=== PATIENT | male | born 1955 ===

== ENCOUNTER 2018-06-17 18:17 | Inpatient (IN) | payer MEDICARE, MEDICAID ==
[2018-06-17] MEDS ORDERED: Etomidate 20 mg/10ml Inj IV ONE (18:19)
[2018-06-17] MEDS ORDERED: Succinylcholine 200 mg/10 ml Inj IV ONE (18:19)
[2018-06-17] MEDS ORDERED: Propofol 10 mg/ml 1,000 MG/100 ML VIAL ONE ×2 (18:26→22:38)
[2018-06-17] MEDS ORDERED: Propofol 10 mg/ml Inj (20 ML) IV STA ×2 (18:29→18:36)
[2018-06-17] MEDS ORDERED: Albuterol-Ipratrop 3 mg / 0.5 (3 ml) UD INH STA (18:29)
[2018-06-17] MEDS ORDERED: Albuterol-Ipratrop 3 mg / 0.5 (3 ml) UD IH STA (18:29)
[2018-06-17] MEDS ORDERED: Succinylcholine 200 mg/10 ml Inj IV STA (18:30)
[2018-06-17] MEDS ORDERED: Etomidate 20 mg/10ml Inj IV STA (18:30)
[2018-06-17] MEDS ORDERED: Sodium Chloride 0.9% 1,000 ML IV SCH (18:30)
[2018-06-17] MEDS ORDERED: Fentanyl Citrate 2,500 MCG in Dextrose 5% In Water 200 ML IV SCH ×2 (18:45→21:00)
[2018-06-17] MEDS ORDERED: Propofol 10 mg/ml 1,000 MG/100 ML VIAL IV SCH ×2 (18:45→22:45)
[2018-06-17 18:47] LABS: BASO # 0.2 K/uL (0.0-0.2); EOS # 0.8 K/uL (0.0-0.7); EOS % 4.8 % (0.0-4.0); HEMOGLOBIN 16.1 g/dL (12.0-18.0); LYMPH % 36.8 % (20.0-40.0); MEAN CELL VOLUME 85.1 fl (80.0-94.0); MEAN CORPUSCULAR HGB CONC 32.9 g/dL (33.0-37.0); MONO # 1.1 K/uL (0.0-0.8); MONO % 6.8 % (0.0-10.0); NEUT # 8.3 K/uL (1.8-7.0); NEUT % 50.6 % (50.0-75.0); NRBC % 0.2 % (0.0-0.0); RBC 5.77 Mil/uL (4.40-5.90); WHITE BLOOD COUNT 16.4 K/uL (4.8-10.8)
[2018-06-17 18:48] LABS: INR 0.9; PROTHROMBIN TIME 10.6 Seconds (9.8-13.1)
[2018-06-17] MEDS ORDERED: Albuterol-Ipratrop 3 mg / 0.5 (3 ml) UD ONE ×2 (18:49→22:10)
[2018-06-17 18:51] LABS: PARTIAL THROMBOPLASTIN TIME 27.8 Seconds (25.6-37.1)
[2018-06-17 18:57] LABS: ALB/GLOB RATIO 1.5 (1.0-2.1); ALBUMIN 4.7 g/dL (3.5-5.0); ALT/SGPT 16 U/L (21-72); AST/SGOT 21 U/L (17-59); BLOOD UREA NITROGEN 20 mg/dl (9-20); CALCIUM 9.7 mg/dL (8.4-10.2); GFR NON-AFRICAN AMERICAN > 60
[2018-06-17] MEDS ORDERED: Sodium Chloride 0.9% 50 ML IV ONE (19:08)
[2018-06-17] MEDS ORDERED: Iodixanol 320 MG/ML 100 ML BOTTLE IV ONE (19:08)
--- NOTE | 2018-06-17 19:17 | ED PDOC ---
HPI: SOB/CHF/COPD Time Seen by Provider: 06/17/18 18:17 Chief Complaint (Nursing): Respiratory Distress Chief Complaint (Provider): Respiratory Distress History Per: EMS History/Exam Limitations: clinical condition Onset/Duration Of Symptoms: Sudden Onset Current Symptoms Are (Timing): Still Present Additional Complaint(s): Unknown male arrives to emergency department via ambulance for evaluation of respiratory distress. As per EMS, patient's called 911 after witnessing patient with difficulty breathing while eating soup prior to arrival. and home health aid are present but were unable to provide medical history or name. Initially, the handed over a bag containing paperwork without proper ID or information included. Upon arrival, patient observed with retraction and desaturation in 80s range. O2 desaturating rapidly on monitor - requires immedi ate intubation. Dr. Cespedes present for assistance. PCP: none provided Past Medical History Reviewed: Unable To Obtain Vital Signs: Last Vital Signs Temp 98.6 F 06/17/18 18:44 Pulse 81 06/17/18 19:05 Resp 18 06/17/18 19:05 BP 110/72 06/17/18 19:05 Pulse Ox 99 06/17/18 19:05 - Family History Family History: States: Unknown Family Hx - Home Medications Home Medications: Ambulatory Orders Medication Instructions Recorded ARIPiprazole [Abilify] 15 mg PO DAILY 06/17/18 Alprazolam [Xanax] 0.25 mg PO DAILY 06/17/18 Cholecalciferol (Vitamin D3) 2,000 unit PO DAILY 06/17/18 [Vitamin D3] Citalopram Hydrobromide 40 mg PO DAILY 06/17/18 [Citalopram HBr] Fenofibrate [Triglide] 160 mg PO DAILY 06/17/18 Ibuprofen [Motrin] 400 mg PO TID PRN 06/17/18 Insulin Detemir [Levemir] 30 unit SQ DAILY 06/17/18 Insulin Lispro [humALOG] 4 unit PRN PRN 06/17/18 Metoprolol Tartrate [Lopressor] 25 mg PO BID 06/17/18 Oxcarbazepine 300 mg PO BID 06/17/18 metFORMIN [glucOPHAGE] 500 mg PO BID 06/17/18 - Allergies Allergies/Adverse Reactions: Allergies Allergy/AdvReac Type Severity Reaction Status Date / Time Unobtainable Allergy Verified 06/17/18 18:19 Review of Systems Review Of Systems: ROS cannot be obtained secondary to pt's inabilty to answer questions. Physical Exam - Reviewed Nursing Documentation Reviewed: Yes Vital Signs Reviewed: Yes - Physical Exam ENT: Positive for: Normal ENT Inspection (midline trachea) Cardiovascular/Chest: Positive for: Tachycardia (regular rate) Respiratory: Positive for: Crackles (bilateral), Stridor (bilateral), Respiratory Distress (tachypneic with O2 desaturation) Gastrointestinal/Abdominal: Positive for: Normal Exam, Soft. Negative for: Tenderness Extremity: Positive for: Other (stiffness to UE/LE). Negative for: Deformity (or visible trauma) Neurological/Psych: Negative for: Awake, Alert, Normal Tone - Laboratory Results Result Diagrams: 06/17/18 18:30 06/17/18 18:30 Lab Results: PT 10.6 Seconds (9.8-13.1) 06/17/18 18:30 INR 0.9 06/17/18 18:30 APTT 27.8 Seconds (25.6-37.1) 06/17/18 18:30 Troponin I < 0.0120 ng/mL (0.00-0.120) 06/17/18 18:30 NT-Pro-B Natriuret Pep 51.0 pg/ml (0-900) 06/17/18 18:30 Total Bilirubin 0.4 mg/dl (0.2-1.3) 06/17/18 18:30 AST 21 U/L (17-59) 06/17/18 18:30 ALT 16 U/L (21-72) L 06/17/18 18:30 Alkaline Phosphatase 74 U/L (38-126) 06/17/18 18:30 Total Protein 7.9 G/DL (6.3-8.2) 06/17/18 18:30 Albumin 4.7 g/dL (3.5-5.0) 06/17/18 18:30 Globulin 3.1 gm/dL (2.2-3.9) 06/17/18 18:30 Albumin/Globulin Ratio 1.5 (1.0-2.1) 06/17/18 18:30 - ECG O2 Sat by Pulse Oximetry: 99 (RA) Pulse Ox Interpretation: Normal - Critical Care Total Time (In Min): 60 Documented Critical Care: Time excludes all time spent performint seperately billable procedures Medical Decision Making Medical Decision Making: Time: 1816 Initial Plan: work-up for respiratory distress with Dr. Cespedes at bedside. EMS sending a public relations representative to pickup location to obtain additional identifying documents. CT ordered to rule out obstruction vs. aspiration. Critical care consult initiated. Patient will be admitted to ICU. * CT chest * Fentanyl IV * Labs * EKG * CXR * Amidate 20mg IV * Diprivan IV * Duoneb 3ml INH * Quelicin 100mg IV * Solu-medrol 125mg IVP * Blood/urine culture Time: 1899 --Case discussed with Dr. Monk, hospitalist covering for overnight critical care. 1999 RNs initially able to find a patient matching the and name given by EMS based on location hop picker. Later able to get pt from patient as he is now alert and calm while mechanically ventilated. Pt's sister also contacted hospital to confirm as 1955. Pt has history of stroke, DM, and HTN Meds: Levemer 30 U am HUmalog sliding scale Ibuprofen 400 mg TID PRN pain Metformin 500 mg BID Oxcarbazepine 300mg BID Citalopram 40 mg daily Alprazolam 0.25 mg daily Vitamin d3 2000u daily Fenofibrate 160mg daily Metoprolol 25 mg BID Ariprazole 15 mg daily Health Care proxy is sister, Yee Pascual, Dr. Monk is currently bedside and agrees to keeping pt intubated until respiratory distress can further be worked up. Time: 2025 --CT head FINDINGS: BRAIN No acute intraparenchymal hemorrhage. No mass lesion. No CT evidence for acute territorial infarct. No midline shift or extra-axial collections. VENTRICLES: No hydrocephalus. ORBITS: The orbits are unremarkable. SINUSES AND MASTOIDS: Inflammatory changes are present within the ethmoid and frontal sinuses. BONES: No fracture. SOFT TISSUES: Unremarkable. IMPRESSION: No acute intracranial abnormality. Inflammatory changes within the ethmoid and frontal sinuses. Clinical correlation advised. Time: 2031 --CT chest FINDINGS: LUNGS: There is infiltrated both lung bases posteriorly and mild pleural reaction.. PLEURAL SPACES: Mild pleural thickening at the lung bases. HEART: No cardiomegaly. No significant pericardial effusion. Fluid filled moderately distended upper and midesophagus. Endotracheal tube appears high in position with its and just inferior to the vocal cords. LYMPH NODES: No lymphadenopathy is evident. BONES: No focal osseous abnormality or acute fracture. UPPER ABDOMEN: The upper abdominal solid organs are unremarkable. IMPRESSION: Infiltrate both lung bases. Some pleural reaction noted. Fluid- filled distended esophagus. Endotracheal tube appears high in position. Close clinical correlation advised. Scribe Attestation: Documented by Geni Samano, acting as a scribe for Dior Chawla MD. Provider Scribe Attestation: All medical record entries made by the Scribe were at my direction and personally dictated by me. I have reviewed the chart and agree that the record accurately reflects my personal performance of the history, physical exam, me dical decision making, and the department course for this patient. I have also personally directed, reviewed, and agree with the discharge instructions and disposition. Disposition - Clinical Impression Clinical Impression: Respiratory distress - Disposition Disposition Time: 19:53 Condition: CRITICAL
[2018-06-17 19:22] LABS: SQUAMOUS EPITHIAL < 1 /hpf (0-5); URINE BILIRUBIN NEGATIVE (NEGATIVE); URINE BLOOD NEGATIVE (NEGATIVE); URINE CLARITY CLEAR (Clear); URINE COLOR STRAW (YELLOW); URINE GLUCOSE (UA) >=500 mg/dL (NEGATIVE); URINE LEUKOCYTE ESTERASE NEG Leu/uL (Negative); URINE PROTEIN 30 mg/dL (NEGATIVE); URINE UROBILINOGEN 0.2-1.0 mg/dL (0.2-1.0)
[2018-06-17 20:13] LABS: ABG ALLEN TEST YES; ARTERIAL BLOOD GAS HCO3 22.7 mmol/L (21-28); ARTERIAL BLOOD GAS PCO2 47 mm/Hg (35-45); ARTERIAL BLOOD GAS PH 7.31 (7.35-7.45); ARTERIAL BLOOD GAS PO2 135 mm/Hg (80-100); ARTERIAL BLOOD GAS TCO2 25.1 mmol/L (22-28)
[2018-06-17] MEDS ORDERED: Sodium Chloride 0.45% 1,000 ML IV SCH (21:30)
--- NOTE | 2018-06-17 21:30 | CP.PCM.HP ---
History of Present Illness - History of Present Illness History of Present Illness: PMD: None given Chief complaint: respiratory distress The Patient was seen and examined in the ED and I spoke to the sister on the taylor ne HPI: the history was obtained from the patient's sister via telephone, the laboratory, radiological and medical records as the patient is intubated and sedated. He is a 63 years old male with hx of DM insulin requiring, HTN and CVA with right side weakness, aphasia and difficulty in swallowing. He was brought to the E after an episode of acute unset of respiratory distress and choking while eating. The EMS found him desaturating to the 80s and he was placed on oxygen. In the ED he was intubated. 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 Past Patient History - Infectious Disease Hx of Infectious Diseases: None - Past Social History Smoking Status: Former Smoker Chewing Tobacco Use: No Cigar Use: No Alcohol: None Drugs: Denies Home Situation {Lives}: Alone - CARDIAC Hx Hypertension: Yes - PULMONARY Hx Respiratory Disorders: No - NEUROLOGICAL Hx Neurological Disorder: Yes HX Cerebrovascular Accident: Yes (With right side weakness, motor aphasia and dysphagia?) - HEENT Hx HEENT Problems: No - RENAL Hx Chronic Kidney Disease: No - ENDOCRINE/METABOLIC Hx Diabetes Mellitus Type 2: Yes - HEMATOLOGICAL/ONCOLOGICAL Hx Blood Disorders: No - INTEGUMENTARY Hx Dermatological Problems: No - MUSCULOSKELETAL/RHEUMATOLOGICAL Hx Musculoskeletal Disorders: No - GASTROINTESTINAL Hx Gastrointestinal Disorders: No - GENITOURINARY/GYNECOLOGICAL Hx Genitourinary Disorders: No - PSYCHIATRIC Hx Psychophysiologic Disorder: No Hx Substance Use: No - SURGICAL HISTORY Hx Surgeries: No - ANESTHESIA Hx Anesthesia: No Meds Allergies/Adverse Reactions: Allergies Allergy/AdvReac Type Severity Reaction Status Date / Time Unobtainable Allergy Verified 06/17/18 18:19 Physical Exam - Constitutional Additional comments: Intubated - Head Exam Head Exam: ATRAUMATIC, NORMAL INSPECTION, NORMOCEPHALIC - Eye Exam Eye Exam: EOMI, Normal appearance Pupil Exam: NORMAL ACCOMODATION - ENT Exam ENT Exam: Normal Exam, Normal External Ear Exam - Neck Exam Neck exam: Positive for: Full Rom, Normal Inspection - Respiratory Exam Respiratory Exam: Clear to Auscultation Bilateral. absent: Rales, Rhonchi, Wheezes - Cardiovascular Exam Cardiovascular Exam: REGULAR RHYTHM, RRR, +S1, +S2 - GI/Abdominal Exam GI & Abdominal Exam: Normal Bowel Sounds, Soft. absent: Mass, Organomegaly - Rectal Exam Rectal Exam: Deferred - Extremities Exam Extremities exam: Positive for: normal inspection. Negative for: pedal edema - Back Exam Back exam: NORMAL INSPECTION - Neurological Exam Additional comments: Intubated and sedated, No facial droop seen, right upper extremity is hypertonic - Psychiatric Exam Additional comments: Intubated - Skin Skin Exam: Dry, Intact, Normal Color, Warm Results - Vital Signs Recent Vital Signs: Last Vital Signs Temp 98.6 F 06/17/18 18:44 Pulse 76 06/17/18 21:00 Resp 17 06/17/18 21:00 BP 120/63 06/17/18 21:00 Pulse Ox 98 06/17/18 21:00 - Labs Result Diagrams: 06/18/18 05:31 06/18/18 05:31 Labs: Laboratory Results - last 24 hr 06/17/18 06/17/18 06/17/18 18:30 18:30 18:30 WBC 16.4 H RBC 5.77 Hgb 16.1 Hct 49.1 MCV 85.1 MCH 28.0 MCHC 32.9 L RDW 15.0 H Plt Count 313 MPV 8.0 Neut % (Auto) 50.6 Lymph % (Auto) 36.8 [place] % (Auto) 6.8 Eos % (Auto) 4.8 H Baso % (Auto) 1.0 Neut # (Auto) 8.3 H Lymph # (Auto) 6.0 H [place] # (Auto) 1.1 H Eos # (Auto) 0.8 H Baso # (Auto) 0.2 PT 10.6 INR 0.9 APTT 27.8 pCO2 pO2 HCO3 ABG pH ABG Total CO2 ABG O2 Saturation ABG Base Excess Vasu Test ABG Potassium A-a O2 Difference Glucose Lactate Vent Mode Mechanical Rate FiO2 Tidal Volume PEEP Blood Gas Comments Crit Value Called To Crit Value Called By Crit Value Read Back Blood Gas Notified Time Sodium 142 Potassium 4.7 Chloride 107 Carbon Dioxide 20 L Anion Gap 20 BUN 20 Creatinine 1.0 Est GFR ( Amer) > 60 Est GFR (Non-Af Amer) > 60 Random Glucose 357 H Calcium 9.7 Phosphorus 4.9 H Magnesium 2.1 Total Bilirubin 0.4 AST 21 ALT 16 L Alkaline Phosphatase 74 Troponin I < 0.0120 NT-Pro-B Natriuret Pep 51.0 Total Protein 7.9 Albumin 4.7 Globulin 3.1 Albumin/Globulin Ratio 1.5 Arterial Blood Potassium Urine Color Urine Clarity Urine pH Ur Specific [place] Urine Protein Urine Glucose (UA) Urine Ketones Urine Blood Urine Nitrate Urine Bilirubin Urine Urobilinogen Ur Leukocyte Esterase Urine RBC (Auto) Urine Microscopic WBC Ur Squamous Epith Cells 06/17/18 06/17/18 19:14 20:06 WBC RBC Hgb Hct MCV MCH MCHC RDW Plt Count MPV Neut % (Auto) Lymph % (Auto) [place] % (Auto) Eos % (Auto) Baso % (Auto) Neut # (Auto) Lymph # (Auto) [place] # (Auto) Eos # (Auto) Baso # (Auto) PT INR APTT pCO2 47 H pO2 135 H HCO3 22.7 ABG pH 7.31 L ABG Total CO2 25.1 ABG O2 Saturation 101.0 H ABG Base Excess -2.9 L Vasu Test Yes ABG Potassium 4.6 A-a O2 Difference 234.0 Glucose 396 H Lactate 2.3 H Vent Mode Prvc/ac Mechanical Rate 18 FiO2 60.0 Tidal Volume 500 PEEP 5 Blood Gas Comments Lac=2.3 Crit Value Called To deshaun Ruiz Crit Value Called By 22 Crit Value Read Back Y Blood Gas Notified Time 2011 Sodium 139.0 Potassium Chloride 108.0 H Carbon Dioxide Anion Gap BUN Creatinine Est GFR ( Amer) Est GFR (Non-Af Amer) Random Glucose Calcium Phosphorus Magnesium Total Bilirubin AST ALT Alkaline Phosphatase Troponin I NT-Pro-B Natriuret Pep Total Protein Albumin Globulin Albumin/Globulin Ratio Arterial Blood Potassium 4.6 Urine Color Straw Urine Clarity Clear Urine pH 6.0 Ur Specific [place] 1.024 Urine Protein 30 Urine Glucose (UA) >=500 Urine Ketones Negative Urine Blood Negative Urine Nitrate Negative Urine Bilirubin Negative Urine Urobilinogen 0.2-1.0 Ur Leukocyte Esterase Neg Urine RBC (Auto) < 1 Urine Microscopic WBC < 1 Ur Squamous Epith Cells < 1 - Imaging and Cardiology Chest x-ray Status: Image reviewed by me Additional comment: Increased bronchovascular markings CT scan - chest Status: Report reviewed by me Additional comment: Time: 2031 --CT chest FINDINGS: LUNGS: There is infiltrated both lung bases posteriorly and mild pleural reaction.. PLEURAL SPACES: Mild pleural thickening at the lung bases. HEART: No cardiomegaly. No significant pericardial effusion. Fluid filled moderately distended upper and midesophagus. Endotracheal tube appears high in position with its and just inferior to the vocal cords. LYMPH NODES: No lymphadenopathy is evident. BONES: No focal osseous abnormality or acute fracture. UPPER ABDOMEN: The upper abdominal solid organs are unremarkable. IMPRESSION: Infiltrate both lung bases. Some pleural reaction noted. Fluid- filled distended esophagus. Endotracheal tube appears high in position. Close clinical correlation advised. CT scan - head Status: Report reviewed by me Additional comment: Time: 2025 --CT head FINDINGS: BRAIN No acute intraparenchymal hemorrhage. No mass lesion. No CT evidence for acute territorial infarct. No midline shift or extra-axial collections. VENTRICLES: No hydrocephalus. ORBITS: The orbits are unremarkable. SINUSES AND MASTOIDS: Inflammatory changes are present within the ethmoid and frontal sinuses. BONES: No fracture. SOFT TISSUES: Unremarkable. IMPRESSION: No acute intracranial abnormality. Inflammatory changes within the ethmoid and frontal sinuses. Clinical correlation advised. Assessment & Plan - Assessment and Plan (Free Text) Assessment: #. Acute Respiratory distress #. Hypoxemia #. Dehydration #. DM II with Hyperglycemia #. Hx of CVA with right sided weakness Plan: 63 years old male with hx of DM insulin requiring, HTN and CVA with right side weakness, aphasia and difficulty in swallowing. He was brought to the E after an episode of acute unset of respiratory distress and choking while eating. The EMS found him desaturating to the 80s and he was placed on oxygen. In the ED he was intubated. #. Acute Respiratory distress. - Patient intubated in the ER and placed on the Mechanical ventilator - consult pulmonary Dr Pickens - Follow ABG #. Hypoxemia - Add Oxygen and follow ABG - Albuterol #. Dehydration - IV Fluid - follow renal labs #. DM II with Hyperglycemia - Continue levemir and Novolog sliding scale #. Hx of CVA with right sided weakness #. DVT prophylaxis #. Stroke status: Unknown full code - Date & Time Date: 06/17/18 Time: 21:30
[2018-06-17] MEDS: Propofol 10 mg/ml 1,000 MG/100 ML VIAL IV SCH (23:18)
[2018-06-17] MEDS: Insulin Detemir 100 Units/ml Inj SC SCH (23:38)
[2018-06-18 01:03] VITALS: BMI 29.7
[2018-06-18] MEDS: Insulin Lispro (humaLOG) 100 Units/ml Inj SC SCH ×4 (02:57→21:29)
[2018-06-18 04:39] LABS: ABG ALLEN TEST YES; ARTERIAL BLOOD GAS HCO3 24.1 mmol/L (21-28); ARTERIAL BLOOD GAS HEMOGLOBIN 14.6 g/dL (11.7-17.4); ARTERIAL BLOOD GAS O2 CAPACITY 20.3 mL/dL (16-24); ARTERIAL BLOOD GAS O2 CONTENT 20.4 ML/dL (15-23); ARTERIAL BLOOD GAS O2 SAT 100.4 % (95-98); ARTERIAL BLOOD GAS PCO2 45 mm/Hg (35-45); ARTERIAL BLOOD GAS PH 7.35 (7.35-7.45); ARTERIAL BLOOD GAS PO2 216 mm/Hg (80-100); ARTERIAL BLOOD GAS TCO2 26.2 mmol/L (22-28)
[2018-06-18] MEDS: Propofol 10 mg/ml 1,000 MG/100 ML VIAL IV SCH (05:17)
[2018-06-18 05:57] LABS: BLOOD UREA NITROGEN 20 mg/dl (9-20); CALCIUM 9.3 mg/dL (8.4-10.2); GFR NON-AFRICAN AMERICAN > 60
[2018-06-18 06:43] LABS: BASO % 0.2 % (0.0-2.0); HEMOGLOBIN 14.3 g/dL (12.0-18.0); MONO # 0.6 K/uL (0.0-0.8); MONO % 5.1 % (0.0-10.0); NEUT # 10.6 K/uL (1.8-7.0); NRBC % 0.2 % (0.0-0.0); RBC 5.12 Mil/uL (4.40-5.90); WHITE BLOOD COUNT 12.2 K/uL (4.8-10.8)
[2018-06-18 06:45] LABS: MEAN CELL VOLUME 83.8 fl (80.0-94.0); MEAN CORPUSCULAR HEMOGLOBIN 27.9 pg (27.0-31.0); MEAN CORPUSCULAR HGB CONC 33.3 g/dL (33.0-37.0); MEAN PLATELET VOLUME 8.3 fl (7.2-11.7); NEUT % 86.7 % (50.0-75.0); PLATELET COUNT 240 K/uL (130-400); RED CELL DISTRIBUTION WIDTH 14.9 % (11.5-14.5)
--- NOTE | 2018-06-18 07:09 | CP.PCM.PN ---
<Yudelka Luna - Last Filed: 06/18/18 10:59> Subjective - Date & Time of Evaluation Date of Evaluation: 06/18/18 Time of Evaluation: 07:09 - Subjective Subjective: Patient seen and examined today in ICU Intubated and sedated, on MV, pt awake and alert, following commands No acute overnight events VSS, afebrile Considering extubation Objective - Vital Signs/Intake and Output Vital Signs (last 24 hours): Temp Pulse Resp BP Pulse Ox 98.8 F 66 18 103/62 97 06/18/18 06:00 06/18/18 06:00 06/18/18 06:00 06/18/18 06:00 06/18/18 06:00 Intake and Output: 06/18/18 06/18/18 06:59 18:59 Intake Total 1029.9 Output Total 1700 Balance -670.1 - Medications Medications: Current Medications Albuterol Sulfate (Albuterol 0.083% Inhal Sandi (2.5 Mg/3 Ml) Ud) 2.5 mg INH RQ4 KEARA Sodium Chloride (Sodium Chloride 0.9%) 1,000 mls @ 150 mls/hr IV .Q6H40M KEARA Last Admin: 06/17/18 18:30 Dose: 150 mls/hr Propofol (Diprivan) 1,000 mg in 100 mls @ 4.899 mls/hr IV .[id number] KEARA; Protocol Stop: 06/18/18 18:37 Last Titration: 06/17/18 19:45 Dose: 24.49 mcg/kg/min, 11.997 mls/hr Fentanyl Citrate 2,500 mcg/ (Dextrose) 250 mls @ 2.5 mls/hr IV .Q24H KEARA; Protocol Last Titration: 06/17/18 20:27 Dose: 300 mcg/hr, 30 mls/hr Fentanyl Citrate 2,500 mcg/ (Dextrose) 250 mls @ 3 mls/hr IV .Q24H KEARA; Protocol Last Titration: 06/18/18 00:15 Dose: 49 mcg/hr, 4.9 mls/hr Sodium Chloride (Sodium Chloride 0.45%) 1,000 mls @ 125 mls/hr IV .Q8H KEARA Stop: 06/18/18 21:25 Last Admin: 06/18/18 02:49 Dose: 125 mls/hr Propofol (Diprivan) 1,000 mg in 100 mls @ 17.494 mls/hr IV .Q5H43M [facility]; Protocol Stop: 06/18/18 22:34 Last Admin: 06/18/18 05:17 Dose: 35.71 mcg/kg/min, 17.494 mls/hr Insulin Detemir (Levemir) 15 units SC HS [facility] Last Admin: 06/17/18 23:38 Dose: 15 unit Insulin Human Lispro (Humalog) 0 units SC Q6H [facility]; Protocol Last Admin: 06/18/18 02:57 Dose: 3 units - Labs Labs: 06/18/18 05:31 06/18/18 05:31 PT 10.6 Seconds (9.8-13.1) 06/17/18 18:30 INR 0.9 06/17/18 18:30 APTT 27.8 Seconds (25.6-37.1) 06/17/18 18:30 - Constitutional Appears: No Acute Distress, Other (intubated on MV) - Head Exam Head Exam: NORMAL INSPECTION - Eye Exam Eye Exam: EOMI, PERRL - Respiratory Exam Respiratory Exam: Clear to Ausculation Bilateral - Cardiovascular Exam Cardiovascular Exam: REGULAR RHYTHM, +S1, +S2. absent: Tachycardia - GI/Abdominal Exam GI & Abdominal Exam: Soft, Normal Bowel Sounds. absent: Distended, Tenderness - Extremities Exam Extremities Exam: absent: Pedal Edema - Neurological Exam Neurological Exam: Alert, Awake Additional comments: Able to follow verbal commands - Skin Skin Exam: Dry, Warm Assessment and Plan - Assessment and Plan (Free Text) Assessment: 63 years old male with hx of DM insulin requiring, HTN and CVA with right side weakness, aphasia and difficulty in swallowing. He was brought to the E after an episode of acute unset of respiratory distress and choking while eating. The EMS found him desaturating to the 80s and he was placed on oxygen. In the ED he was intubated. Acute Respiratory distress. - r/o aspiration - CXR negative for acute lung changes - Patient intubated on MV 18/500/5/40 - consult pulmonary Dr Pickens - troponin neg x3 - P BNP wnl Hypoxemia - Add Oxygen and follow ABG - Albuterol Dehydration - IV Fluid - renal labs wnl DM II with Hyperglycemia - Continue levemir and Novolog sliding scale Hx of CVA with right sided weakness DVT prophylaxis Stroke status: Unknown full code Case seen and examined with Dr Combs. Marcelina PGY 2 <Arina Combs - Last Filed: 06/18/18 17:18> Objective - Vital Signs/Intake and Output Vital Signs (last 24 hours): Temp Pulse Resp BP Pulse Ox 100.0 F H 81 16 117/61 97 06/18/18 16:00 06/18/18 16:00 06/18/18 16:00 06/18/18 16:00 06/18/18 16:00 Intake and Output: 06/18/18 06/18/18 06:59 18:59 Intake Total 1029.9 850 Output Total 1700 Balance -670.1 850 - Medications Medications: Current Medications Albuterol Sulfate (Albuterol 0.083% Inhal Sandi (2.5 Mg/3 Ml) Ud) 2.5 mg INH RQ6 KEARA Last Admin: 06/18/18 15:27 Dose: 2.5 mg Enoxaparin Sodium (Lovenox) 40 mg SC DAILY KEARA; Protocol Propofol (Diprivan) 1,000 mg in 100 mls @ 4.899 mls/hr IV .[id number] KEARA; Protocol Stop: 06/18/18 18:37 Last Titration: 06/17/18 19:45 Dose: 24.49 mcg/kg/min, 11.997 mls/hr Fentanyl Citrate 2,500 mcg/ (Dextrose) 250 mls @ 2.5 mls/hr IV .Q24H [facility]ARA; Protocol Last Titration: 06/17/18 20:27 Dose: 300 mcg/hr, 30 mls/hr Fentanyl Citrate 2,500 mcg/ (Dextrose) 250 mls @ 3 mls/hr IV .Q24H [facility]ARA; Protocol Last Titration: 06/18/18 00:15 Dose: 49 mcg/hr, 4.9 mls/hr Propofol (Diprivan) 1,000 mg in 100 mls @ 17.494 mls/hr IV .Q5H43M [facility]; Protocol Stop: 06/18/18 22:34 Last Admin: 06/18/18 05:17 Dose: 35.71 mcg/kg/min, 17.494 mls/hr Piperacillin Sod/Tazobactam (Sod 3.375 gm/ Sodium Chloride) 100 mls @ 100 mls/hr IVPB Q6 [facility]; Protocol Last Admin: 06/18/18 09:36 Dose: 100 mls/hr Sodium Chloride (Sodium Chloride 0.9%) 1,000 mls @ 75 mls/hr IV .[id number] KEARA Last Admin: 06/18/18 09:36 Dose: 75 mls/hr Azithromycin 500 mg/ Sodium (Chloride) 250 mls @ 250 mls/hr IVPB DAILY KEARA; Pr otocol Last Admin: 06/18/18 09:34 Dose: 250 mls/hr Insulin Detemir (Levemir) 15 units SC HS [facility] Last Admin: 06/17/18 23:38 Dose: 15 unit Insulin Human Lispro (Humalog) 0 units SC Q6H [facility]; Protocol Last Admin: 06/18/18 09:51 Dose: 4 units Methylprednisolone (Solu-Medrol) 40 mg IVP Q12 [facility]ARA Last Admin: 06/18/18 09:38 Dose: 40 mg - Labs Labs: 06/18/18 05:31 06/18/18 05:31 PT 10.6 Seconds (9.8-13.1) 06/17/18 18:30 INR 0.9 06/17/18 18:30 APTT 27.8 Seconds (25.6-37.1) 06/17/18 18:30 Attending/Attestation - Attestation I have personally seen and examined this patient.: Yes I have fully participated in the care of the patient.: Yes I have reviewed all pertinent clinical information, including history, physical exam and plan: Yes Notes (Text): Acute Hypoxic and Hypercapneic Respiratory Failure COPD exacerbation DM type II on Insulin Pt remains intubated on Vent alert, follows simple commands cont IV Solumedrol and Duonebs cont IV AZithro and Zosyn
[2018-06-18] MEDS ORDERED: Influenza Vaccine 60 MCG/0.5 ML SYR (3 yr & up) IM ONE (08:09)
[2018-06-18] MEDS ORDERED: Pneumococcal 23-Valent Vaccine IM ONE (08:10)
[2018-06-18] MEDS: Albuterol 0.083% Inhal Sol (2.5 mg/3 mL) UD INH SCH ×4 (08:20→19:15)
--- NOTE | 2018-06-18 08:31 | CT ---
Date of service: 06/17/2018 PROCEDURE: CT HEAD WITHOUT CONTRAST. HISTORY: headache COMPARISON: None available. TECHNIQUE: Axial computed tomography images were obtained through the head/brain without intravenous contrast. Radiation dose: Total exam DLP = 1191.89 mGy-cm. This CT exam was performed using one or more of the following dose reduction techniques: Automated exposure control, adjustment of the mA and/or kV according to patient size, and/or use of iterative reconstruction technique. FINDINGS: HEMORRHAGE: No intracranial hemorrhage. BRAIN: No mass effect or edema. No significant atrophy. Mild periventricular white matter lucency consistent with chronic microvascular ischemic change. Bilateral small old basal ganglia lacunar infarcts. No evidence of acute infarct. VENTRICLES: Unremarkable. No hydrocephalus. CALVARIUM: Unremarkable. PARANASAL SINUSES: Chronic pansinusitis, mild. MASTOID AIR CELLS: Unremarkable as visualized. No inflammatory changes. OTHER FINDINGS: None. IMPRESSION: No intracranial mass, hemorrhage or evidence of acute infarct. Mild chronic pansinusitis. The preliminary findings for this examination were reported by [facility] at 8:26 p.m. on 06/17/2018. There is concurrence of this report with the preliminary findings.
[2018-06-18] MEDS ORDERED: methylPREDNISolone 40 MG in Sodium Chloride 0.9% 50 ML IVPB SCH (09:00)
--- NOTE | 2018-06-18 09:15 | CARD ---
APPROVED REPORT Date of service: 06/17/2018 EKG Measurement Heart [id number] <Conclusion> Normal sinus rhythm Possible Left atrial enlargement Left axis deviation Left ventricular hypertrophy with QRS widening and repolarization abnormality Abnormal ECG
[2018-06-18] MEDS: Azithromycin 500 MG in Sodium Chloride 0.9% 250 ML IVPB SCH (09:34)
[2018-06-18] MEDS: Piperacillin/Tazobact 3.375 GM in Sodium Chloride 0.9% 100 ML IVPB SCH ×3 (09:36→21:31)
[2018-06-18] MEDS: Sodium Chloride 0.9% 1,000 ML IV SCH (09:36)
[2018-06-18] MEDS: MethylPREDNISolone 40 mg Vial IVP SCH ×2 (09:38→20:08)
--- NOTE | 2018-06-18 09:47 | RAD ---
Date of service: 06/18/2018 HISTORY: reevaluate ETT/ lungs COMPARISON: 06/17/2018 TECHNIQUE: 1 view obtained. FINDINGS: LUNGS: No active pulmonary disease. PLEURA: No significant pleural effusion identified, no pneumothorax apparent. CARDIOVASCULAR: No aortic atherosclerotic calcification present. Normal cardiac size. No congestive change. ET tube unchanged in position. OSSEOUS STRUCTURES: No significant abnormalities. VISUALIZED UPPER ABDOMEN: Normal. OTHER FINDINGS: None. IMPRESSION: No active disease.
--- NOTE | 2018-06-18 09:50 | RAD ---
Date of service: 06/17/2018 HISTORY: follow up acute respiratory distress COMPARISON: 06/17/2018 TECHNIQUE: 1 view obtained. FINDINGS: LUNGS: No active pulmonary disease. PLEURA: No significant pleural effusion identified, no pneumothorax apparent. CARDIOVASCULAR: No aortic atherosclerotic calcification present. Normal cardiac size. ET tube unchanged. OSSEOUS STRUCTURES: No significant abnormalities. VISUALIZED UPPER ABDOMEN: Normal. OTHER FINDINGS: None. IMPRESSION: No active disease.
--- NOTE | 2018-06-18 11:02 | CT ---
Date of service: 06/17/2018 PROCEDURE: CT Chest with contrast HISTORY: resp distress, possibly aspirataion COMPARISON: None available. TECHNIQUE: Contiguous axial images were obtained through the chest with intravenous contrast enhancement. Sagittal and coronal reconstructions were performed. IV contrast: 100 mL of Visipaque 320 intravenously. Radiation dose: Total exam DLP = 569.01 mGy-cm. This CT exam was performed using one or more of the following dose reduction techniques: Automated exposure control, adjustment of the mA and/or kV according to patient size, and/or use of iterative reconstruction technique. FINDINGS: LUNGS: There are foci of airspace consolidation and heterogeneous infiltrate at the posterior dependent portion of both lower lobes may represent aspiration. There is a linear/curvilinear shaped opacity at the inferior aspect of the right lung upper lobe along the right fissure that also may represent aspiration or scar tissue from prior infection or inflammatory process. The ET tube is seen in place extending to the upper trachea at the level of the clavicles. MEDIASTINUM: The thoracic aorta is ectatic and tortuous. The heart is upper normal limit in size. Main pulmonary artery unremarkable. No vascular congestion. No lymphadenopathy. Foci of atherosclerotic calcification noted at the aortic arch. Moderately dilated esophagus contains air-fluid level and fluid density in the mid and distal portion. PLEURA: No pleural fluid. No pneumothorax. BONES: No fracture. No destructive lesion. Findings suggestive of old fracture in upper sternum. UPPER ABDOMEN: Grossly unremarkable. OTHER FINDINGS: None. IMPRESSION: Foci of airspace consolidation at the posterior dependent portion of the bilateral lower lobes and right upper lobe likely represent aspiration. Differential consideration includes less likely multifocal pneumonia. Moderately dilated esophagus contains fluid and air-fluid level. The differential consideration includes gastroesophageal reflux versus stenosis or neoplasm in the distal esophagus. Further evaluation is suggested. Preliminary report was submitted by [facility] Radiology contains concordant findings.
[2018-06-18 11:14] LABS: BANDS 2 % (0-2); LYMPHOCYTE 7 % (20-50); MONOCYTE 6 % (0-10); MYELOCYTE 1 % (0-0); NEUTROPHIL 83 % (42-75); REACTIVE LYMPHOCYTES 1 % (0-0); TOTAL CELLS COUNTED 100
[2018-06-18 11:15] LABS: PLATELET ESTIMATE NORMAL (NORMAL)
[2018-06-18 11:16] LABS: ANISOCYTOSIS SLIGHT; GIANT PLATELETS PRESENT
--- NOTE | 2018-06-18 14:23 | RAD ---
Date of service: 06/17/2018 HISTORY: Sepsis Patient COMPARISON: No prior. TECHNIQUE: 1 view obtained. FINDINGS: LUNGS: Part of left lung is not included in this study. No evidence of focal infiltrate or consolidation. The ET tube is seen at appropriate position PLEURA: No significant pleural effusion identified, no pneumothorax apparent. CARDIOVASCULAR: No aortic atherosclerotic calcification present. Normal cardiac size. No pulmonary vascular congestion. OSSEOUS STRUCTURES: No significant abnormalities. VISUALIZED UPPER ABDOMEN: Normal. OTHER FINDINGS: None. IMPRESSION: Baseline suboptimal study. No evidence of acute pulmonary disease. ET tube seen in place.
--- NOTE | 2018-06-18 14:58 | CP.CCUPN ---
CCU Subjective - Physician Review Events Since Last Encounter (Free Text): 06/18/18 14:49 alert and following commands. CCU Objective - Vital Signs / Intake & Output Vital Signs (Last 4 hours): Vital Signs Temp Pulse Resp BP Pulse Ox 06/18/18 14:00 70 12 129/65 98 06/18/18 13:00 68 11 L 123/63 98 06/18/18 12:00 99.3 F 68 9 L 118/62 98 06/18/18 11:00 65 18 123/65 98 Intake and Output (Last 8hrs): Intake & Output 06/17/18 06/18/18 06/18/18 22:59 06:59 14:59 Intake Total 429.9 800 850 Output Total 1700 Balance 429.9 -900 850 Weight 180 lb 196 lb Intake: IV 429.9 800 500 Intravenous #1 200 Intake, Piggyback 350 Output: Urine 1700 Urethral ([place]) 1700 - Physical Exam Head: Positive for: Atraumatic, Normocephalic Pupils: Positive for: PERRL Extroacular Muscles: Positive for: EOMI Conjunctiva: Positive for: Normal Ears: Positive for: Normal Mouth: Positive for: Moist Mucous Membranes Nose (External): Positive for: Atraumatic Respiratory/Chest: Positive for: Clear to Auscultation Cardiovascular: Positive for: Regular Rate and Rhythm Abdomen: Positive for: Normal Bowel Sounds. Negative for: Tenderness, Distention Upper Extremity: Positive for: Normal Inspection Lower Extremity: Positive for: Normal Inspection Psychiatric: Positive for: Alert - Medications Active Medications: Active Medications Generic Name Dose Route Start Last Admin Trade Name Davidq PRN Reason Stop Dose Admin Albuterol Sulfate 2.5 mg 06/18/18 08:00 06/18/18 11:29 Albuterol 0.083% Inhal Sandi (2.5 Mg/3 Ml) Ud INH 2.5 mg RQ4 KEARA Administration Enoxaparin Sodium 40 mg 06/18/18 15:00 Lovenox SC DAILY KEARA Protocol Propofol 1,000 mg in 100 mls @ 4.899 mls/hr 06/17/18 18:45 06/17/18 19:45 Diprivan IV 06/18/18 18:37 24.49 mcg/kg/min .[id number] KEARA 11.997 mls/hr Titration Protocol 10 MCG/KG/MIN Fentanyl Citrate 2,500 mcg/ 250 mls @ 2.5 mls/hr 06/17/18 18:45 06/17/18 20:27 Dextrose IV 300 mcg/hr .Q24H KEARA 30 mls/hr Titration Protocol 25 MCG/HR Fentanyl Citrate 2,500 mcg/ 250 mls @ 3 mls/hr 06/17/18 21:00 06/18/18 00:15 Dextrose IV 49 mcg/hr .Q24H KEARA 4.9 mls/hr Titration Protocol 30 MCG/HR Sodium Chloride 1,000 mls @ 125 mls/hr 06/17/18 21:30 06/18/18 02:49 Sodium Chloride 0.45% IV 06/18/18 21:25 125 mls/hr .Q8H KEARA Administration Propofol 1,000 mg in 100 mls @ 17.494 mls/hr 06/17/18 22:45 06/18/18 05:17 Diprivan IV 06/18/18 22:34 35.71 mcg/kg/min .[id number] KEARA 17.494 mls/hr Administration Protocol 35.71 MCG/KG/MIN Piperacillin Sod/Tazobactam 100 mls @ 100 mls/hr 06/18/18 10:00 06/18/18 09:36 Sod 3.375 gm/ Sodium Chloride IVPB 100 mls/hr Q6 KEARA Administration Protocol Sodium Chloride 1,000 mls @ 75 mls/hr 06/18/18 08:39 06/18/18 09:36 Sodium Chloride 0.9% IV 75 mls/hr .[id number] KEARA Administration Azithromycin 500 mg/ Sodium 250 mls @ 250 mls/hr 06/18/18 09:00 06/18/18 09:34 Chloride IVPB 250 mls/hr DAILY KEARA Administration Protocol Insulin Detemir 15 units 06/17/18 22:00 06/17/18 23:38 Levemir SC 15 unit HS KEARA Administration Insulin Human Lispro 0 units 06/17/18 21:30 06/18/18 09:51 Humalog SC 4 units Q6H KEARA Administration Protocol Methylprednisolone 40 mg 06/18/18 09:00 06/18/18 09:38 Solu-Medrol IVP 40 mg Q12 KEARA Administration - Patient Studies Lab Studies: Lab Studies 06/18/18 06/18/18 06/18/18 Range/Units 09:48 09:30 05:31 WBC (4.8-10.8) K/uL RBC (4.40-5.90) Mil/uL Hgb (12.0-18.0) g/dL Hct (35.0-51.0) % MCV (80.0-94.0) fl MCH (27.0-31.0) pg MCHC (33.0-37.0) g/dL RDW (11.5-14.5) % Plt Count (130-400) K/uL MPV (7.2-11.7) fl Neut % (Auto) (50.0-75.0) % Lymph % (Auto) (20.0-40.0) % Republic % (Auto) (0.0-10.0) % Eos % (Auto) (0.0-4.0) % Baso % (Auto) (0.0-2.0) % Neut # (Auto) (1.8-7.0) K/uL Lymph # (Auto) (1.0-4.3) K/uL Republic # (Auto) (0.0-0.8) K/uL Eos # (Auto) (0.0-0.7) K/uL Baso # (Auto) (0.0-0.2) K/uL Neutrophils % (Manual) (42-75) % Band Neutrophils % (0-2) % Lymphocytes % (Manual) (20-50) % Reactive Lymphs % (0-0) % Monocytes % (Manual) (0-10) % Myelocytes % (0-0) % Platelet Estimate (NORMAL) Giant Platelets Anisocytosis (manual) PT (9.8-13.1) Seconds INR APTT (25.6-37.1) Seconds pCO2 (35-45) mm/Hg pO2 (80-100) mm/Hg HCO3 (21-28) mmol/L ABG pH (7.35-7.45) ABG Total CO2 (22-28) mmol/L ABG O2 Saturation (95-98) % ABG O2 Content (15-23) ML/dL ABG Base Excess (-2.0-3.0) mmol/L ABG Hemoglobin (11.7-17.4) g/dL ABG Carboxyhemoglobin (0.5-1.5) % POC ABG HHb (Measured) (0.0-5.0) % ABG Methemoglobin (0.0-3.0) % ABG O2 Capacity (16-24) mL/dL Vasu Test ABG Potassium (3.6-5.2) mmol/L A-a O2 Difference mm/Hg Hgb O2 Saturation (95.0-98.0) % Glucose (75-110) mg/dL Lactate (0.7-2.1) mmol/L Vent Mode Mechanical Rate FiO2 % Tidal Volume PEEP Blood Gas Comments Crit Value Called To Crit Value Called By Crit Value Read Back Blood Gas Notified Time Sodium 141 (132-148) mmol/l Potassium 4.5 (3.6-5.0) MMOL/L Chloride 107 (98-107) mmol/L Carbon Dioxide 22 (22-30) mmol/L Anion Gap 17 (10-20) BUN 20 (9-20) mg/dl Creatinine 0.9 (0.8-1.5) mg/dl Est GFR ( Amer) > 60 Est GFR (Non-Af Amer) > 60 POC Glucose (mg/dL) 279 H (65-110) mg/dL Random Glucose 331 H (75-110) mg/dL Calcium 9.3 (8.4-10.2) mg/dL Phosphorus (2.5-4.5) mg/dl Magnesium (1.6-2.3) MG/DL Total Bilirubin (0.2-1.3) mg/dl AST (17-59) U/L ALT (21-72) U/L Alkaline Phosphatase (38-126) U/L Troponin I 0.0700 0.0860 (0.00-0.120) ng/mL NT-Pro-B Natriuret Pep (0-900) pg/ml Total Protein (6.3-8.2) G/DL Albumin (3.5-5.0) g/dL Globulin (2.2-3.9) gm/dL Albumin/Globulin Ratio (1.0-2.1) Arterial Blood Potassium (3.6-5.2) mmol/L Urine Color (YELLOW) Urine Clarity (Clear) Urine pH (5.0-8.0) Ur Specific Hancock (1.003-1.030) Urine Protein (NEGATIVE) mg/dL Urine Glucose (UA) (NEGATIVE) mg/dL Urine Ketones (NEGATIVE) mg/dL Urine Blood (NEGATIVE) Urine Nitrate (NEGATIVE) Urine Bilirubin (NEGATIVE) Urine Urobilinogen (0.2-1.0) mg/dL Ur Leukocyte Esterase (Negative) Chuck/uL Urine RBC (Auto) (0-3) /hpf Urine Microscopic WBC (0-5) /hpf Ur Squamous Epith Cells (0-5) /hpf 06/18/18 06/18/18 06/18/18 Range/Units 05:31 04:24 02:47 WBC 12.2 H (4.8-10.8) K/uL RBC 5.12 (4.40-5.90) Mil/uL Hgb 14.3 (12.0-18.0) g/dL Hct 42.9 (35.0-51.0) % MCV 83.8 (80.0-94.0) fl MCH 27.9 (27.0-31.0) pg MCHC 33.3 (33.0-37.0) g/dL RDW 14.9 H (11.5-14.5) % Plt Count 240 (130-400) K/uL MPV 8.3 (7.2-11.7) fl Neut % (Auto) 86.7 H (50.0-75.0) % Lymph % (Auto) 8.0 L (20.0-40.0) % Republic % (Auto) 5.1 (0.0-10.0) % Eos % (Auto) 0.0 (0.0-4.0) % Baso % (Auto) 0.2 (0.0-2.0) % Neut # (Auto) 10.6 H (1.8-7.0) K/uL Lymph # (Auto) 1.0 (1.0-4.3) K/uL Republic # (Auto) 0.6 (0.0-0.8) K/uL Eos # (Auto) 0.0 (0.0-0.7) K/uL Baso # (Auto) 0.0 (0.0-0.2) K/uL Neutrophils % (Manual) 83 H (42-75) % Band Neutrophils % 2 (0-2) % Lymphocytes % (Manual) 7 L (20-50) % Reactive Lymphs % 1 H (0-0) % Monocytes % (Manual) 6 (0-10) % Myelocytes % 1 H (0-0) % Platelet Estimate Normal (NORMAL) Giant Platelets Present Anisocytosis (manual) Slight PT (9.8-13.1) Seconds INR APTT (25.6-37.1) Seconds pCO2 45 (35-45) mm/Hg pO2 216 H (80-100) mm/Hg HCO3 24.1 (21-28) mmol/L ABG pH 7.35 (7.35-7.45) ABG Total CO2 26.2 (22-28) mmol/L ABG O2 Saturation 100.4 H (95-98) % ABG O2 Content 20.4 (15-23) ML/dL ABG Base Excess -1.1 (-2.0-3.0) mmol/L ABG Hemoglobin 14.6 (11.7-17.4) g/dL ABG Carboxyhemoglobin 1.4 (0.5-1.5) % POC ABG HHb (Measured) -0.4 L (0.0-5.0) % ABG Methemoglobin 1.6 (0.0-3.0) % ABG O2 Capacity 20.3 (16-24) mL/dL Vasu Test Yes ABG Potassium (3.6-5.2) mmol/L A-a O2 Difference 156.0 mm/Hg Hgb O2 Saturation 97.4 (95.0-98.0) % Glucose (75-110) mg/dL Lactate (0.7-2.1) mmol/L Vent Mode A/c Mechanical Rate 18 FiO2 60.0 % Tidal Volume 500 PEEP 5 Blood Gas Comments Crit Value Called To Crit Value Called By Crit Value Read Back Blood Gas Notified Time Sodium (132-148) mmol/l Potassium (3.6-5.0) MMOL/L Chloride (98-107) mmol/L Carbon Dioxide (22-30) mmol/L Anion Gap (10-20) BUN (9-20) mg/dl Creatinine (0.8-1.5) mg/dl Est GFR ( Amer) Est GFR (Non-Af Amer) POC Glucose (mg/dL) 380 H (65-110) mg/dL Random Glucose (75-110) mg/dL Calcium (8.4-10.2) mg/dL Phosphorus (2.5-4.5) mg/dl Magnesium (1.6-2.3) MG/DL Total Bilirubin (0.2-1.3) mg/dl AST (17-59) U/L ALT (21-72) U/L Alkaline Phosphatase (38-126) U/L Troponin I (0.00-0.120) ng/mL NT-Pro-B Natriuret Pep (0-900) pg/ml Total Protein (6.3-8.2) G/DL Albumin (3.5-5.0) g/dL Globulin (2.2-3.9) gm/dL Albumin/Globulin Ratio (1.0-2.1) Arterial Blood Potassium (3.6-5.2) mmol/L Urine Color (YELLOW) Urine Clarity (Clear) Urine pH (5.0-8.0) Ur Specific [place] (1.003-1.030) Urine Protein (NEGATIVE) mg/dL Urine Glucose (UA) (NEGATIVE) mg/dL Urine Ketones (NEGATIVE) mg/dL Urine Blood (NEGATIVE) Urine Nitrate (NEGATIVE) Urine Bilirubin (NEGATIVE) Urine Urobilinogen (0.2-1.0) mg/dL Ur Leukocyte Esterase (Negative) Chuck/uL Urine RBC (Auto) (0-3) /hpf Urine Microscopic WBC (0-5) /hpf Ur Squamous Epith Cells (0-5) /hpf 06/17/18 06/17/18 06/17/18 Range/Units 23:22 20:06 19:14 WBC (4.8-10.8) K/uL RBC (4.40-5.90) Mil/uL Hgb (12.0-18.0) g/dL Hct (35.0-51.0) % MCV (80.0-94.0) fl MCH (27.0-31.0) pg MCHC (33.0-37.0) g/dL RDW (11.5-14.5) % Plt Count (130-400) K/uL MPV (7.2-11.7) fl Neut % (Auto) (50.0-75.0) % Lymph % (Auto) (20.0-40.0) % Republic % (Auto) (0.0-10.0) % Eos % (Auto) (0.0-4.0) % Baso % (Auto) (0.0-2.0) % Neut # (Auto) (1.8-7.0) K/uL Lymph # (Auto) (1.0-4.3) K/uL [place] # (Auto) (0.0-0.8) K/uL Eos # (Auto) (0.0-0.7) K/uL Baso # (Auto) (0.0-0.2) K/uL Neutrophils % (Manual) (42-75) % Band Neutrophils % (0-2) % Lymphocytes % (Manual) (20-50) % Reactive Lymphs % (0-0) % Monocytes % (Manual) (0-10) % Myelocytes % (0-0) % Platelet Estimate (NORMAL) Giant Platelets Anisocytosis (manual) PT (9.8-13.1) Seconds INR APTT (25.6-37.1) Seconds pCO2 47 H (35-45) mm/Hg pO2 135 H (80-100) mm/Hg HCO3 22.7 (21-28) mmol/L ABG pH 7.31 L (7.35-7.45) ABG Total CO2 25.1 (22-28) mmol/L ABG O2 Saturation 101.0 H (95-98) % ABG O2 Content (15-23) ML/dL ABG Base Excess -2.9 L (-2.0-3.0) mmol/L ABG Hemoglobin (11.7-17.4) g/dL ABG Carboxyhemoglobin (0.5-1.5) % POC ABG HHb (Measured) (0.0-5.0) % ABG Methemoglobin (0.0-3.0) % ABG O2 Capacity (16-24) mL/dL Vasu Test Yes ABG Potassium 4.6 (3.6-5.2) mmol/L A-a O2 Difference 234.0 mm/Hg Hgb O2 Saturation (95.0-98.0) % Glucose 396 H (75-110) mg/dL Lactate 2.3 H (0.7-2.1) mmol/L Vent Mode Prvc/ac Mechanical Rate 18 FiO2 60.0 % Tidal Volume 500 PEEP 5 Blood Gas Comments Lac=2.3 Crit Value Called To deshaun Ruiz Crit Value Called By 22 Crit Value Read Back Y Blood Gas Notified Time 2011 Sodium 139.0 (132-148) mmol/l Potassium (3.6-5.0) MMOL/L Chloride 108.0 H (98-107) mmol/L Carbon Dioxide (22-30) mmol/L Anion Gap (10-20) BUN (9-20) mg/dl Creatinine (0.8-1.5) mg/dl Est GFR ( Amer) Est GFR (Non-Af Amer) POC Glucose (mg/dL) 381 H (65-110) mg/dL Random Glucose (75-110) mg/dL Calcium (8.4-10.2) mg/dL Phosphorus (2.5-4.5) mg/dl Magnesium (1.6-2.3) MG/DL Total Bilirubin (0.2-1.3) mg/dl AST (17-59) U/L ALT (21-72) U/L Alkaline Phosphatase (38-126) U/L Troponin I (0.00-0.120) ng/mL NT-Pro-B Natriuret Pep (0-900) pg/ml Total Protein (6.3-8.2) G/DL Albumin (3.5-5.0) g/dL Globulin (2.2-3.9) gm/dL Albumin/Globulin Ratio (1.0-2.1) Arterial Blood Potassium 4.6 (3.6-5.2) mmol/L Urine Color Straw (YELLOW) Urine Clarity Clear (Clear) Urine pH 6.0 (5.0-8.0) Ur Specific Hancock 1.024 (1.003-1.030) Urine Protein 30 (NEGATIVE) mg/dL Urine Glucose (UA) >=500 (NEGATIVE) mg/dL Urine Ketones Negative (NEGATIVE) mg/dL Urine Blood Negative (NEGATIVE) Urine Nitrate Negative (NEGATIVE) Urine Bilirubin Negative (NEGATIVE) Urine Urobilinogen 0.2-1.0 (0.2-1.0) mg/dL Ur Leukocyte Esterase Neg (Negative) Chuck/uL Urine RBC (Auto) < 1 (0-3) /hpf Urine Microscopic WBC < 1 (0-5) /hpf Ur Squamous Epith Cells < 1 (0-5) /hpf 06/17/18 06/17/18 06/17/18 Range/Units 18:30 18:30 18:30 WBC 16.4 H (4.8-10.8) K/uL RBC 5.77 (4.40-5.90) Mil/uL Hgb 16.1 (12.0-18.0) g/dL Hct 49.1 (35.0-51.0) % MCV 85.1 (80.0-94.0) fl MCH 28.0 (27.0-31.0) pg MCHC 32.9 L (33.0-37.0) g/dL RDW 15.0 H (11.5-14.5) % Plt Count 313 (130-400) K/uL MPV 8.0 (7.2-11.7) fl Neut % (Auto) 50.6 (50.0-75.0) % Lymph % (Auto) 36.8 (20.0-40.0) % Republic % (Auto) 6.8 (0.0-10.0) % Eos % (Auto) 4.8 H (0.0-4.0) % Baso % (Auto) 1.0 (0.0-2.0) % Neut # (Auto) 8.3 H (1.8-7.0) K/uL Lymph # (Auto) 6.0 H (1.0-4.3) K/uL Republic # (Auto) 1.1 H (0.0-0.8) K/uL Eos # (Auto) 0.8 H (0.0-0.7) K/uL Baso # (Auto) 0.2 (0.0-0.2) K/uL Neutrophils % (Manual) (42-75) % Band Neutrophils % (0-2) % Lymphocytes % (Manual) (20-50) % Reactive Lymphs % (0-0) % Monocytes % (Manual) (0-10) % Myelocytes % (0-0) % Platelet Estimate (NORMAL) Giant Platelets Anisocytosis (manual) PT 10.6 (9.8-13.1) Seconds INR 0.9 APTT 27.8 (25.6-37.1) Seconds pCO2 (35-45) mm/Hg pO2 (80-100) mm/Hg HCO3 (21-28) mmol/L ABG pH (7.35-7.45) ABG Total CO2 (22-28) mmol/L ABG O2 Saturation (95-98) % ABG O2 Content (15-23) ML/dL ABG Base Excess (-2.0-3.0) mmol/L ABG Hemoglobin (11.7-17.4) g/dL ABG Carboxyhemoglobin (0.5-1.5) % POC ABG HHb (Measured) (0.0-5.0) % ABG Methemoglobin (0.0-3.0) % ABG O2 Capacity (16-24) mL/dL Vasu Test ABG Potassium (3.6-5.2) mmol/L A-a O2 Difference mm/Hg Hgb O2 Saturation (95.0-98.0) % Glucose (75-110) mg/dL Lactate (0.7-2.1) mmol/L Vent Mode Mechanical Rate FiO2 % Tidal Volume PEEP Blood Gas Comments Crit Value Called To Crit Value Called By Crit Value Read Back Blood Gas Notified Time Sodium 142 (132-148) mmol/l Potassium 4.7 (3.6-5.0) MMOL/L Chloride 107 (98-107) mmol/L Carbon Dioxide 20 L (22-30) mmol/L Anion Gap 20 (10-20) BUN 20 (9-20) mg/dl Creatinine 1.0 (0.8-1.5) mg/dl Est GFR ( Amer) > 60 Est GFR (Non-Af Amer) > 60 POC Glucose (mg/dL) (65-110) mg/dL Random Glucose 357 H (75-110) mg/dL Calcium 9.7 (8.4-10.2) mg/dL Phosphorus 4.9 H (2.5-4.5) mg/dl Magnesium 2.1 (1.6-2.3) MG/DL Total Bilirubin 0.4 (0.2-1.3) mg/dl AST 21 (17-59) U/L ALT 16 L (21-72) U/L Alkaline Phosphatase 74 (38-126) U/L Troponin I < 0.0120 (0.00-0.120) ng/mL NT-Pro-B Natriuret Pep 51.0 (0-900) pg/ml Total Protein 7.9 (6.3-8.2) G/DL Albumin 4.7 (3.5-5.0) g/dL Globulin 3.1 (2.2-3.9) gm/dL Albumin/Globulin Ratio 1.5 (1.0-2.1) Arterial Blood Potassium (3.6-5.2) mmol/L Urine Color (YELLOW) Urine Clarity (Clear) Urine pH (5.0-8.0) Ur Specific Hancock (1.003-1.030) Urine Protein (NEGATIVE) mg/dL Urine Glucose (UA) (NEGATIVE) mg/dL Urine Ketones (NEGATIVE) mg/dL Urine Blood (NEGATIVE) Urine Nitrate (NEGATIVE) Urine Bilirubin (NEGATIVE) Urine Urobilinogen (0.2-1.0) mg/dL Ur Leukocyte Esterase (Negative) Chuck/uL Urine RBC (Auto) (0-3) /hpf Urine Microscopic WBC (0-5) /hpf Ur Squamous Epith Cells (0-5) /hpf 06/17/18 Range/Units 18:19 WBC (4.8-10.8) K/uL RBC (4.40-5.90) Mil/uL Hgb (12.0-18.0) g/dL Hct (35.0-51.0) % MCV (80.0-94.0) fl MCH (27.0-31.0) pg MCHC (33.0-37.0) g/dL RDW (11.5-14.5) % Plt Count (130-400) K/uL MPV (7.2-11.7) fl Neut % (Auto) (50.0-75.0) % Lymph % (Auto) (20.0-40.0) % Republic % (Auto) (0.0-10.0) % Eos % (Auto) (0.0-4.0) % Baso % (Auto) (0.0-2.0) % Neut # (Auto) (1.8-7.0) K/uL Lymph # (Auto) (1.0-4.3) K/uL Republic # (Auto) (0.0-0.8) K/uL Eos # (Auto) (0.0-0.7) K/uL Baso # (Auto) (0.0-0.2) K/uL Neutrophils % (Manual) (42-75) % Band Neutrophils % (0-2) % Lymphocytes % (Manual) (20-50) % Reactive Lymphs % (0-0) % Monocytes % (Manual) (0-10) % Myelocytes % (0-0) % Platelet Estimate (NORMAL) Giant Platelets Anisocytosis (manual) PT (9.8-13.1) Seconds INR APTT (25.6-37.1) Seconds pCO2 (35-45) mm/Hg pO2 (80-100) mm/Hg HCO3 (21-28) mmol/L ABG pH (7.35-7.45) ABG Total CO2 (22-28) mmol/L ABG O2 Saturation (95-98) % ABG O2 Content (15-23) ML/dL ABG Base Excess (-2.0-3.0) mmol/L ABG Hemoglobin (11.7-17.4) g/dL ABG Carboxyhemoglobin (0.5-1.5) % POC ABG HHb (Measured) (0.0-5.0) % ABG Methemoglobin (0.0-3.0) % ABG O2 Capacity (16-24) mL/dL Vasu Test ABG Potassium (3.6-5.2) mmol/L A-a O2 Difference mm/Hg Hgb O2 Saturation (95.0-98.0) % Glucose (75-110) mg/dL Lactate (0.7-2.1) mmol/L Vent Mode Mechanical Rate FiO2 % Tidal Volume PEEP Blood Gas Comments Crit Value Called To Crit Value Called By Crit Value Read Back Blood Gas Notified Time Sodium (132-148) mmol/l Potassium (3.6-5.0) MMOL/L Chloride (98-107) mmol/L Carbon Dioxide (22-30) mmol/L Anion Gap (10-20) BUN (9-20) mg/dl Creatinine (0.8-1.5) mg/dl Est GFR ( Amer) Est GFR (Non-Af Amer) POC Glucose (mg/dL) 319 H (65-110) mg/dL Random Glucose (75-110) mg/dL Calcium (8.4-10.2) mg/dL Phosphorus (2.5-4.5) mg/dl Magnesium (1.6-2.3) MG/DL Total Bilirubin (0.2-1.3) mg/dl AST (17-59) U/L ALT (21-72) U/L Alkaline Phosphatase (38-126) U/L Troponin I (0.00-0.120) ng/mL NT-Pro-B Natriuret Pep (0-900) pg/ml Total Protein (6.3-8.2) G/DL Albumin (3.5-5.0) g/dL Globulin (2.2-3.9) gm/dL Albumin/Globulin Ratio (1.0-2.1) Arterial Blood Potassium (3.6-5.2) mmol/L Urine Color (YELLOW) Urine Clarity (Clear) Urine pH (5.0-8.0) Ur Specific Hancock (1.003-1.030) Urine Protein (NEGATIVE) mg/dL Urine Glucose (UA) (NEGATIVE) mg/dL Urine Ketones (NEGATIVE) mg/dL Urine Blood (NEGATIVE) Urine Nitrate (NEGATIVE) Urine Bilirubin (NEGATIVE) Urine Urobilinogen (0.2-1.0) mg/dL Ur Leukocyte Esterase (Negative) Chuck/uL Urine RBC (Auto) (0-3) /hpf Urine Microscopic WBC (0-5) /hpf Ur Squamous Epith Cells (0-5) /hpf Laboratory Results - last 24 hr 06/17/18 06/17/18 06/17/18 18:19 18:30 18:30 WBC 16.4 H RBC 5.77 Hgb 16.1 Hct 49.1 MCV 85.1 MCH 28.0 MCHC 32.9 L RDW 15.0 H Plt Count 313 MPV 8.0 Neut % (Auto) 50.6 Lymph % (Auto) 36.8 Republic % (Auto) 6.8 Eos % (Auto) 4.8 H Baso % (Auto) 1.0 Neut # (Auto) 8.3 H Lymph # (Auto) 6.0 H [place] # (Auto) 1.1 H Eos # (Auto) 0.8 H Baso # (Auto) 0.2 Neutrophils % (Manual) Band Neutrophils % Lymphocytes % (Manual) Reactive Lymphs % Monocytes % (Manual) Myelocytes % Platelet Estimate Giant Platelets Anisocytosis (manual) PT INR APTT pCO2 pO2 HCO3 ABG pH ABG Total CO2 ABG O2 Saturation ABG O2 Content ABG Base Excess ABG Hemoglobin ABG Carboxyhemoglobin POC ABG HHb (Measured) ABG Methemoglobin ABG O2 Capacity Vasu Test ABG Potassium A-a O2 Difference Hgb O2 Saturation Glucose Lactate Vent Mode Mechanical Rate FiO2 Tidal Volume PEEP Blood Gas Comments Crit Value Called To Crit Value Called By Crit Value Read Back Blood Gas Notified Time Sodium 142 Potassium 4.7 Chloride 107 Carbon Dioxide 20 L Anion Gap 20 BUN 20 Creatinine 1.0 Est GFR ( Amer) > 60 Est GFR (Non-Af Amer) > 60 POC Glucose (mg/dL) 319 H Random Glucose 357 H Calcium 9.7 Phosphorus 4.9 H Magnesium 2.1 Total Bilirubin 0.4 AST 21 ALT 16 L Alkaline Phosphatase 74 Troponin I < 0.0120 NT-Pro-B Natriuret Pep 51.0 Total Protein 7.9 Albumin 4.7 Globulin 3.1 Albumin/Globulin Ratio 1.5 Arterial Blood Potassium Urine Color Urine Clarity Urine pH Ur Specific [place] Urine Protein Urine Glucose (UA) Urine Ketones Urine Blood Urine Nitrate Urine Bilirubin Urine Urobilinogen Ur Leukocyte Esterase Urine RBC (Auto) Urine Microscopic WBC Ur Squamous Epith Cells 06/17/18 06/17/18 06/17/18 18:30 19:14 20:06 WBC RBC Hgb Hct MCV MCH MCHC RDW Plt Count MPV Neut % (Auto) Lymph % (Auto) Republic % (Auto) Eos % (Auto) Baso % (Auto) Neut # (Auto) Lymph # (Auto) [place] # (Auto) Eos # (Auto) Baso # (Auto) Neutrophils % (Manual) Band Neutrophils % Lymphocytes % (Manual) Reactive Lymphs % Monocytes % (Manual) Myelocytes % Platelet Estimate Giant Platelets Anisocytosis (manual) PT 10.6 INR 0.9 APTT 27.8 pCO2 47 H pO2 135 H HCO3 22.7 ABG pH 7.31 L ABG Total CO2 25.1 ABG O2 Saturation 101.0 H ABG O2 Content ABG Base Excess -2.9 L ABG Hemoglobin ABG Carboxyhemoglobin POC ABG HHb (Measured) ABG Methemoglobin ABG O2 Capacity Vasu Test Yes ABG Potassium 4.6 A-a O2 Difference 234.0 Hgb O2 Saturation Glucose 396 H Lactate 2.3 H Vent Mode Prvc/ac Mechanical Rate 18 FiO2 60.0 Tidal Volume 500 PEEP 5 Blood Gas Comments Lac=2.3 Crit Value Called To deshaun Ruiz Crit Value Called By 22 Crit Value Read Back Y Blood Gas Notified Time 2011 Sodium 139.0 Potassium Chloride 108.0 H Carbon Dioxide Anion Gap BUN Creatinine Est GFR ( Amer) Est GFR (Non-Af Amer) POC Glucose (mg/dL) Random Glucose Calcium Phosphorus Magnesium Total Bilirubin AST ALT Alkaline Phosphatase Troponin I NT-Pro-B Natriuret Pep Total Protein Albumin Globulin Albumin/Globulin Ratio Arterial Blood Potassium 4.6 Urine Color Straw Urine Clarity Clear Urine pH 6.0 Ur Specific [place] 1.024 Urine Protein 30 Urine Glucose (UA) >=500 Urine Ketones Negative Urine Blood Negative Urine Nitrate Negative Urine Bilirubin Negative Urine Urobilinogen 0.2-1.0 Ur Leukocyte Esterase Neg Urine RBC (Auto) < 1 Urine Microscopic WBC < 1 Ur Squamous Epith Cells < 1 06/17/18 06/18/18 06/18/18 23:22 02:47 04:24 WBC RBC Hgb Hct MCV MCH MCHC RDW Plt Count MPV Neut % (Auto) Lymph % (Auto) [place] % (Auto) Eos % (Auto) Baso % (Auto) Neut # (Auto) Lymph # (Auto) [place] # (Auto) Eos # (Auto) Baso # (Auto) Neutrophils % (Manual) Band Neutrophils % Lymphocytes % (Manual) Reactive Lymphs % Monocytes % (Manual) Myelocytes % Platelet Estimate Giant Platelets Anisocytosis (manual) PT INR APTT pCO2 45 pO2 216 H HCO3 24.1 ABG pH 7.35 ABG Total CO2 26.2 ABG O2 Saturation 100.4 H ABG O2 Content 20.4 ABG Base Excess -1.1 ABG Hemoglobin 14.6 ABG Carboxyhemoglobin 1.4 POC ABG HHb (Measured) -0.4 L ABG Methemoglobin 1.6 ABG O2 Capacity 20.3 Vasu Test Yes ABG Potassium A-a O2 Difference 156.0 Hgb O2 Saturation 97.4 Glucose Lactate Vent Mode A/c Mechanical Rate 18 FiO2 60.0 Tidal Volume 500 PEEP 5 Blood Gas Comments Crit Value Called To Crit Value Called By Crit Value Read Back Blood Gas Notified Time Sodium Potassium Chloride Carbon Dioxide Anion Gap BUN Creatinine Est GFR ( Amer) Est GFR (Non-Af Amer) POC Glucose (mg/dL) 381 H 380 H Random Glucose Calcium Phosphorus Magnesium Total Bilirubin AST ALT Alkaline Phosphatase Troponin I NT-Pro-B Natriuret Pep Total Protein Albumin Globulin Albumin/Globulin Ratio Arterial Blood Potassium Urine Color Urine Clarity Urine pH Ur Specific [place] Urine Protein Urine Glucose (UA) Urine Ketones Urine Blood Urine Nitrate Urine Bilirubin Urine Urobilinogen Ur Leukocyte Esterase Urine RBC (Auto) Urine Microscopic WBC Ur Squamous Epith Cells 06/18/18 06/18/18 06/18/18 05:31 05:31 09:30 WBC 12.2 H RBC 5.12 Hgb 14.3 Hct 42.9 MCV 83.8 MCH 27.9 MCHC 33.3 RDW 14.9 H Plt Count 240 MPV 8.3 Neut % (Auto) 86.7 H Lymph % (Auto) 8.0 L [place] % (Auto) 5.1 Eos % (Auto) 0.0 Baso % (Auto) 0.2 Neut # (Auto) 10.6 H Lymph # (Auto) 1.0 Republic # (Auto) 0.6 Eos # (Auto) 0.0 Baso # (Auto) 0.0 Neutrophils % (Manual) 83 H Band Neutrophils % 2 Lymphocytes % (Manual) 7 L Reactive Lymphs % 1 H Monocytes % (Manual) 6 Myelocytes % 1 H Platelet Estimate Normal Giant Platelets Present Anisocytosis (manual) Slight PT INR APTT pCO2 pO2 HCO3 ABG pH ABG Total CO2 ABG O2 Saturation ABG O2 Content ABG Base Excess ABG Hemoglobin ABG Carboxyhemoglobin POC ABG HHb (Measured) ABG Methemoglobin ABG O2 Capacity Vasu Test ABG Potassium A-a O2 Difference Hgb O2 Saturation Glucose Lactate Vent Mode Mechanical Rate FiO2 Tidal Volume PEEP Blood Gas Comments Crit Value Called To Crit Value Called By Crit Value Read Back Blood Gas Notified Time Sodium 141 Potassium 4.5 Chloride 107 Carbon Dioxide 22 Anion Gap 17 BUN 20 Creatinine 0.9 Est GFR ( Amer) > 60 Est GFR (Non-Af Amer) > 60 POC Glucose (mg/dL) Random Glucose 331 H Calcium 9.3 Phosphorus Magnesium Total Bilirubin AST ALT Alkaline Phosphatase Troponin I 0.0860 0.0700 NT-Pro-B Natriuret Pep Total Protein Albumin Globulin Albumin/Globulin Ratio Arterial Blood Potassium Urine Color Urine Clarity Urine pH Ur Specific [place] Urine Protein Urine Glucose (UA) Urine Ketones Urine Blood Urine Nitrate Urine Bilirubin Urine Urobilinogen Ur Leukocyte Esterase Urine RBC (Auto) Urine Microscopic WBC Ur Squamous Epith Cells 06/18/18 09:48 WBC RBC Hgb Hct MCV MCH MCHC RDW Plt Count MPV Neut % (Auto) Lymph % (Auto) [place] % (Auto) Eos % (Auto) Baso % (Auto) Neut # (Auto) Lymph # (Auto) [place] # (Auto) Eos # (Auto) Baso # (Auto) Neutrophils % (Manual) Band Neutrophils % Lymphocytes % (Manual) Reactive Lymphs % Monocytes % (Manual) Myelocytes % Platelet Estimate Giant Platelets Anisocytosis (manual) PT INR APTT pCO2 pO2 HCO3 ABG pH ABG Total CO2 ABG O2 Saturation ABG O2 Content ABG Base Excess ABG Hemoglobin ABG Carboxyhemoglobin POC ABG HHb (Measured) ABG Methemoglobin ABG O2 Capacity Vasu Test ABG Potassium A-a O2 Difference Hgb O2 Saturation Glucose Lactate Vent Mode Mechanical Rate FiO2 Tidal Volume PEEP Blood Gas Comments Crit Value Called To Crit Value Called By Crit Value Read Back Blood Gas Notified Time Sodium Potassium Chloride Carbon Dioxide Anion Gap BUN Creatinine Est GFR ( Amer) Est GFR (Non-Af Amer) POC Glucose (mg/dL) 279 H Random Glucose Calcium Phosphorus Magnesium Total Bilirubin AST ALT Alkaline Phosphatase Troponin I NT-Pro-B Natriuret Pep Total Protein Albumin Globulin Albumin/Globulin Ratio Arterial Blood Potassium Urine Color Urine Clarity Urine pH Ur Specific [place] Urine Protein Urine Glucose (UA) Urine Ketones Urine Blood Urine Nitrate Urine Bilirubin Urine Urobilinogen Ur Leukocyte Esterase Urine RBC (Auto) Urine Microscopic WBC Ur Squamous Epith Cells Radiology Impressions: Radiology Impressions Chest X-Ray 06/17/18 18:28 IMPRESSION: Baseline suboptimal study. No evidence of acute pulmonary disease. ET tube seen in place. Head CT 06/17/18 18:28 IMPRESSION: No intracranial mass, hemorrhage or evidence of acute infarct. Mild chronic pansinusitis. The preliminary findings for this examination were reported by [facility] Radiology at 8:26 p.m. on 06/17/2018. There is concurrence of this report with the preliminary findings. Chest CT 06/17/18 18:52 IMPRESSION: Foci of airspace consolidation at the posterior dependent portion of the bilateral lower lobes and right upper lobe likely represent aspiration. Differential consideration includes less likely multifocal pneumonia. Moderately dilated esophagus contains fluid and air-fluid level. The differential consideration includes gastroesophageal reflux versus stenosis or neoplasm in the distal esophagus. Further evaluation is suggested. Preliminary report was submitted by [facility] Radiology contains concordant findings. Chest X-Ray 06/17/18 21:55 IMPRESSION: No active disease. Chest X-Ray 06/18/18 06:00 IMPRESSION: No active disease. EKG/Cardiology Studies: Cardiology / EKG Studies 06/17/18 18:28 ELECTROCARDIOGRAM Stat Comment: Mode Of Transportation: Reason For Exam: Sepsis Patient Fingerstick Blood Sugar Results: 279 Review of Systems - Review of Systems Systems not reviewed;Unavailable: Intubated Critical Care Progress Note - Nutrition Nutrition: Nutrition Category Date Time Status NPO Diet [DIET] Diets 06/17/18 Dinner Active Assessment/Plan (1) COPD exacerbation Assessment and plan: 63yo M. 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 p/w respiratory failure requiring intubation (06/17). Neuro: alert and oriented Pulm: acute respiratory failure on PRVC from suspected COPD exacerbation, tolerating PS trial, will move to extubation. albuterol nebs q6h, solumedrol q12h. CV: hemodynamically stable Hem: leucocytosis from sepsis, downtrending. Renal: no acute issues Endo: IDDM type 2, levemir 15 units qhs, SISS q6h GI: NPO, speech and swallow eval in 24h. ID: Azithromycin for COPD exacerbation. DVT proph - lovenox GI proph - not currently indicated Code status - full code Critical Care time spent 35 minutes Multi-disciplinary rounds were performed with house staff, nursing, speech therapy, respiratory therapy, pharmacy and nutrition with integrated input from the primary team/attending and other consulting services. The documented time is cumulative and includes review of patient data/exams/labs/chart review and examination of the patient on rounds and throughout the day; time is exclusive of any procedures or teaching time. Current Visit: Yes Status: Acute
--- NOTE | 2018-06-18 15:19 | CP.PCM.CON ---
History of Present Illness - History of Present Illness History of Present Illness: Pulmonary consult for a 63 y/o M, brought to ER [facility] on 06/17/18 for acute respiratory distress associated to sound with aspiration while eating a soup, witnessed by homemaker who called 911, upon arrival of EMS, Pt observed with retraction, partially airway obstruction and desaturating to the 80s, Pt was placed in O2, requiring immediately intubation and transfer to ICU upon arrival to ED. Worsening symptoms: Dyspnea upon exertion, difficulty in swallowing, Aggravated factor: Unresponsive. PMHx: R CVA 8 yrs ago with R sided weakness. HTN, DMII, PNA, Bronchitis. CXR: No active disease. ET in place. Head CT: No intracranial mass, hemorrhage or acute infarct. Chest CT: Foci airspace consolidation the posterior dependent portion of the lateral lower lobe and R upper lobe liquely represent aspiration. Differential consideration includes less likely multifocal PNA. Moderately dilated esophagus containing fluid and or air-fluid level. The deferential consideration includes gastroesophageal reflux vs stenosis or neoplasm in the distal esophagus. EKG: Normal sinus rhythm, Review of Systems - Review of Systems Systems not reviewed;Unavailable: Acuity of Condition, Intubated Past Patient History - Infectious Disease Hx of Infectious Diseases: None - Past Medical History & Family History Past Medical History?: Yes Pertinent Family History: Unknown - Past Social History Smoking Status: Former Smoker Chewing Tobacco Use: No Cigar Use: No Alcohol: None Drugs: Denies Home Situation {Lives}: Alone - CARDIAC Hx Cardiac Disorders: Yes Hx Hypertension: Yes - PULMONARY Hx Respiratory Disorders: Yes Hx Bronchitis: Yes Hx Pneumonia: Yes - NEUROLOGICAL Hx Neurological Disorder: Yes HX Cerebrovascular Accident: Yes (With right side weakness, motor aphasia and dysphagia?) - HEENT Hx HEENT Problems: No - RENAL Hx Chronic Kidney Disease: No - ENDOCRINE/METABOLIC Hx Endocrine Disorders: Yes Hx Diabetes Mellitus Type 2: Yes - HEMATOLOGICAL/ONCOLOGICAL Hx Blood Disorders: No - INTEGUMENTARY Hx Dermatological Problems: No - MUSCULOSKELETAL/RHEUMATOLOGICAL Hx Musculoskeletal Disorders: No - GASTROINTESTINAL Hx Gastrointestinal Disorders: No - GENITOURINARY/GYNECOLOGICAL Hx Genitourinary Disorders: No - PSYCHIATRIC Hx Psychophysiologic Disorder: No Hx Substance Use: No - SURGICAL HISTORY Hx Surgeries: No - ANESTHESIA Hx Anesthesia: No Meds Allergies/Adverse Reactions: Allergies Allergy/AdvReac Type Severity Reaction Status Date / Time iodine Allergy SWELLING Verified 06/18/18 10:38 shellfish derived Allergy SWELLING Verified 06/18/18 10:38 - Medications Medications: Current Medications Albuterol Sulfate (Albuterol 0.083% Inhal Sandi (2.5 Mg/3 Ml) Ud) 2.5 mg INH RQ6 KEARA Enoxaparin Sodium (Lovenox) 40 mg SC DAILY KEARA; Protocol Propofol (Diprivan) 1,000 mg in 100 mls @ 4.899 mls/hr IV .[id number] KEARA; Protocol Stop: 06/18/18 18:37 Last Titration: 06/17/18 19:45 Dose: 24.49 mcg/kg/min, 11.997 mls/hr Fentanyl Citrate 2,500 mcg/ (Dextrose) 250 mls @ 2.5 mls/hr IV .Q24H KEARA; Protocol Last Titration: 06/17/18 20:27 Dose: 300 mcg/hr, 30 mls/hr Fentanyl Citrate 2,500 mcg/ (Dextrose) 250 mls @ 3 mls/hr IV .Q24H KEARA; Protocol Last Titration: 06/18/18 00:15 Dose: 49 mcg/hr, 4.9 mls/hr Propofol (Diprivan) 1,000 mg in 100 mls @ 17.494 mls/hr IV .[id number] KEARA; Protocol Stop: 06/18/18 22:34 Last Admin: 06/18/18 05:17 Dose: 35.71 mcg/kg/min, 17.494 mls/hr Piperacillin Sod/Tazobactam (Sod 3.375 gm/ Sodium Chloride) 100 mls @ 100 mls/hr IVPB Q6 KEARA; Protocol Last Admin: 06/18/18 09:36 Dose: 100 mls/hr Sodium Chloride (Sodium Chloride 0.9%) 1,000 mls @ 75 mls/hr IV .[id number] KEARA Last Admin: 06/18/18 09:36 Dose: 75 mls/hr Azithromycin 500 mg/ Sodium (Chloride) 250 mls @ 250 mls/hr IVPB DAILY KEARA; Protocol Last Admin: 06/18/18 09:34 Dose: 250 mls/hr Insulin Detemir (Levemir) 15 units SC HS KEARA Last Admin: 06/17/18 23:38 Dose: 15 unit Insulin Human Lispro (Humalog) 0 units SC Q6H [facility]; Protocol Last Admin: 06/18/18 09:51 Dose: 4 units Methylprednisolone (Solu-Medrol) 40 mg IVP Q12 [facility] Last Admin: 06/18/18 09:38 Dose: 40 mg Physical Exam - Constitutional Appears: Chronically Ill - Head Exam Head Exam: NORMAL INSPECTION - Eye Exam Eye Exam: Normal appearance - ENT Exam Additional comments: Intubated - Neck Exam Neck exam: Positive for: Normal Inspection - Respiratory Exam Respiratory Exam: Decreased Breath Sounds, Rhonchi - Cardiovascular Exam Cardiovascular Exam: REGULAR RHYTHM - GI/Abdominal Exam GI & Abdominal Exam: Normal Bowel Sounds, Soft - Extremities Exam Extremities exam: Positive for: normal inspection - Back Exam Additional comments: L mid buttock with small wound - Neurological Exam Additional comments: Intubated, awake follows commands, R hemiparesia - Skin Skin Exam: Warm Results - Vital Signs Recent Vital Signs: Last Vital Signs Temp 99.3 F 06/18/18 12:00 Pulse 70 06/18/18 14:00 Resp 12 06/18/18 14:00 BP 129/65 06/18/18 14:00 Pulse Ox 98 06/18/18 14:00 reviewed Anjel - Labs Result Diagrams: 06/18/18 05:31 06/18/18 05:31 Labs: Laboratory Results - last 24 hr 06/17/18 06/17/18 06/17/18 18:19 18:30 18:30 WBC 16.4 H RBC 5.77 Hgb 16.1 Hct 49.1 MCV 85.1 MCH 28.0 MCHC 32.9 L RDW 15.0 H Plt Count 313 MPV 8.0 Neut % (Auto) 50.6 Lymph % (Auto) 36.8 [place] % (Auto) 6.8 Eos % (Auto) 4.8 H Baso % (Auto) 1.0 Neut # (Auto) 8.3 H Lymph # (Auto) 6.0 H [place] # (Auto) 1.1 H Eos # (Auto) 0.8 H Baso # (Auto) 0.2 Neutrophils % (Manual) Band Neutrophils % Lymphocytes % (Manual) Reactive Lymphs % Monocytes % (Manual) Myelocytes % Platelet Estimate Giant Platelets Anisocytosis (manual) PT INR APTT pCO2 pO2 HCO3 ABG pH ABG Total CO2 ABG O2 Saturation ABG O2 Content ABG Base Excess ABG Hemoglobin ABG Carboxyhemoglobin POC ABG HHb (Measured) ABG Methemoglobin ABG O2 Capacity Vasu Test ABG Potassium A-a O2 Difference Hgb O2 Saturation Glucose Lactate Vent Mode Mechanical Rate FiO2 Tidal Volume PEEP Blood Gas Comments Crit Value Called To Crit Value Called By Crit Value Read Back Blood Gas Notified Time Sodium 142 Potassium 4.7 Chloride 107 Carbon Dioxide 20 L Anion Gap 20 BUN 20 Creatinine 1.0 Est GFR ( Amer) > 60 Est GFR (Non-Af Amer) > 60 POC Glucose (mg/dL) 319 H Random Glucose 357 H Calcium 9.7 Phosphorus 4.9 H Magnesium 2.1 Total Bilirubin 0.4 AST 21 ALT 16 L Alkaline Phosphatase 74 Troponin I < 0.0120 NT-Pro-B Natriuret Pep 51.0 Total Protein 7.9 Albumin 4.7 Globulin 3.1 Albumin/Globulin Ratio 1.5 Arterial Blood Potassium Urine Color Urine Clarity Urine pH Ur Specific [place] Urine Protein Urine Glucose (UA) Urine Ketones Urine Blood Urine Nitrate Urine Bilirubin Urine Urobilinogen Ur Leukocyte Esterase Urine RBC (Auto) Urine Microscopic WBC Ur Squamous Epith Cells 06/17/18 06/17/18 06/17/18 18:30 19:14 20:06 WBC RBC Hgb Hct MCV MCH MCHC RDW Plt Count MPV Neut % (Auto) Lymph % (Auto) [place] % (Auto) Eos % (Auto) Baso % (Auto) Neut # (Auto) Lymph # (Auto) [place] # (Auto) Eos # (Auto) Baso # (Auto) Neutrophils % (Manual) Band Neutrophils % Lymphocytes % (Manual) Reactive Lymphs % Monocytes % (Manual) Myelocytes % Platelet Estimate Giant Platelets Anisocytosis (manual) PT 10.6 INR 0.9 APTT 27.8 pCO2 47 H pO2 135 H HCO3 22.7 ABG pH 7.31 L ABG Total CO2 25.1 ABG O2 Saturation 101.0 H ABG O2 Content ABG Base Excess -2.9 L ABG Hemoglobin ABG Carboxyhemoglobin POC ABG HHb (Measured) ABG Methemoglobin ABG O2 Capacity Vasu Test Yes ABG Potassium 4.6 A-a O2 Difference 234.0 Hgb O2 Saturation Glucose 396 H Lactate 2.3 H Vent Mode Prvc/ac Mechanical Rate 18 FiO2 60.0 Tidal Volume 500 PEEP 5 Blood Gas Comments Lac=2.3 Crit Value Called To deshaun Ruiz Crit Value Called By 22 Crit Value Read Back Y Blood Gas Notified Time 2011 Sodium 139.0 Potassium Chloride 108.0 H Carbon Dioxide Anion Gap BUN Creatinine Est GFR ( Amer) Est GFR (Non-Af Amer) POC Glucose (mg/dL) Random Glucose Calcium Phosphorus Magnesium Total Bilirubin AST ALT Alkaline Phosphatase Troponin I NT-Pro-B Natriuret Pep Total Protein Albumin Globulin Albumin/Globulin Ratio Arterial Blood Potassium 4.6 Urine Color Straw Urine Clarity Clear Urine pH 6.0 Ur Specific [place] 1.024 Urine Protein 30 Urine Glucose (UA) >=500 Urine Ketones Negative Urine Blood Negative Urine Nitrate Negative Urine Bilirubin Negative Urine Urobilinogen 0.2-1.0 Ur Leukocyte Esterase Neg Urine RBC (Auto) < 1 Urine Microscopic WBC < 1 Ur Squamous Epith Cells < 1 06/17/18 06/18/18 06/18/18 23:22 02:47 04:24 WBC RBC Hgb Hct MCV MCH MCHC RDW Plt Count MPV Neut % (Auto) Lymph % (Auto) [place] % (Auto) Eos % (Auto) Baso % (Auto) Neut # (Auto) Lymph # (Auto) [place] # (Auto) Eos # (Auto) Baso # (Auto) Neutrophils % (Manual) Band Neutrophils % Lymphocytes % (Manual) Reactive Lymphs % Monocytes % (Manual) Myelocytes % Platelet Estimate Giant Platelets Anisocytosis (manual) PT INR APTT pCO2 45 pO2 216 H HCO3 24.1 ABG pH 7.35 ABG Total CO2 26.2 ABG O2 Saturation 100.4 H ABG O2 Content 20.4 ABG Base Excess -1.1 ABG Hemoglobin 14.6 ABG Carboxyhemoglobin 1.4 POC ABG HHb (Measured) -0.4 L ABG Methemoglobin 1.6 ABG O2 Capacity 20.3 Vasu Test Yes ABG Potassium A-a O2 Difference 156.0 Hgb O2 Saturation 97.4 Glucose Lactate Vent Mode A/c Mechanical Rate 18 FiO2 60.0 Tidal Volume 500 PEEP 5 Blood Gas Comments Crit Value Called To Crit Value Called By Crit Value Read Back Blood Gas Notified Time Sodium Potassium Chloride Carbon Dioxide Anion Gap BUN Creatinine Est GFR ( Amer) Est GFR (Non-Af Amer) POC Glucose (mg/dL) 381 H 380 H Random Glucose Calcium Phosphorus Magnesium Total Bilirubin AST ALT Alkaline Phosphatase Troponin I NT-Pro-B Natriuret Pep Total Protein Albumin Globulin Albumin/Globulin Ratio Arterial Blood Potassium Urine Color Urine Clarity Urine pH Ur Specific [place] Urine Protein Urine Glucose (UA) Urine Ketones Urine Blood Urine Nitrate Urine Bilirubin Urine Urobilinogen Ur Leukocyte Esterase Urine RBC (Auto) Urine Microscopic WBC Ur Squamous Epith Cells 06/18/18 06/18/18 06/18/18 05:31 05:31 09:30 WBC 12.2 H RBC 5.12 Hgb 14.3 Hct 42.9 MCV 83.8 MCH 27.9 MCHC 33.3 RDW 14.9 H Plt Count 240 MPV 8.3 Neut % (Auto) 86.7 H Lymph % (Auto) 8.0 L [place] % (Auto) 5.1 Eos % (Auto) 0.0 Baso % (Auto) 0.2 Neut # (Auto) 10.6 H Lymph # (Auto) 1.0 [place] # (Auto) 0.6 Eos # (Auto) 0.0 Baso # (Auto) 0.0 Neutrophils % (Manual) 83 H Band Neutrophils % 2 Lymphocytes % (Manual) 7 L Reactive Lymphs % 1 H Monocytes % (Manual) 6 Myelocytes % 1 H Platelet Estimate Normal Giant Platelets Present Anisocytosis (manual) Slight PT INR APTT pCO2 pO2 HCO3 ABG pH ABG Total CO2 ABG O2 Saturation ABG O2 Content ABG Base Excess ABG Hemoglobin ABG Carboxyhemoglobin POC ABG HHb (Measured) ABG Methemoglobin ABG O2 Capacity Vasu Test ABG Potassium A-a O2 Difference Hgb O2 Saturation Glucose Lactate Vent Mode Mechanical Rate FiO2 Tidal Volume PEEP Blood Gas Comments Crit Value Called To Crit Value Called By Crit Value Read Back Blood Gas Notified Time Sodium 141 Potassium 4.5 Chloride 107 Carbon Dioxide 22 Anion Gap 17 BUN 20 Creatinine 0.9 Est GFR ( Amer) > 60 Est GFR (Non-Af Amer) > 60 POC Glucose (mg/dL) Random Glucose 331 H Calcium 9.3 Phosphorus Magnesium Total Bilirubin AST ALT Alkaline Phosphatase Troponin I 0.0860 0.0700 NT-Pro-B Natriuret Pep Total Protein Albumin Globulin Albumin/Globulin Ratio Arterial Blood Potassium Urine Color Urine Clarity Urine pH Ur Specific [place] Urine Protein Urine Glucose (UA) Urine Ketones Urine Blood Urine Nitrate Urine Bilirubin Urine Urobilinogen Ur Leukocyte Esterase Urine RBC (Auto) Urine Microscopic WBC Ur Squamous Epith Cells 06/18/18 09:48 WBC RBC Hgb Hct MCV MCH MCHC RDW Plt Count MPV Neut % (Auto) Lymph % (Auto) [place] % (Auto) Eos % (Auto) Baso % (Auto) Neut # (Auto) Lymph # (Auto) [place] # (Auto) Eos # (Auto) Baso # (Auto) Neutrophils % (Manual) Band Neutrophils % Lymphocytes % (Manual) Reactive Lymphs % Monocytes % (Manual) Myelocytes % Platelet Estimate Giant Platelets Anisocytosis (manual) PT INR APTT pCO2 pO2 HCO3 ABG pH ABG Total CO2 ABG O2 Saturation ABG O2 Content ABG Base Excess ABG Hemoglobin ABG Carboxyhemoglobin POC ABG HHb (Measured) ABG Methemoglobin ABG O2 Capacity Vasu Test ABG Potassium A-a O2 Difference Hgb O2 Saturation Glucose Lactate Vent Mode Mechanical Rate FiO2 Tidal Volume PEEP Blood Gas Comments Crit Value Called To Crit Value Called By Crit Value Read Back Blood Gas Notified Time Sodium Potassium Chloride Carbon Dioxide Anion Gap BUN Creatinine Est GFR ( Amer) Est GFR (Non-Af Amer) POC Glucose (mg/dL) 279 H Random Glucose Calcium Phosphorus Magnesium Total Bilirubin AST ALT Alkaline Phosphatase Troponin I NT-Pro-B Natriuret Pep Total Protein Albumin Globulin Albumin/Globulin Ratio Arterial Blood Potassium Urine Color Urine Clarity Urine pH Ur Specific [place] Urine Protein Urine Glucose (UA) Urine Ketones Urine Blood Urine Nitrate Urine Bilirubin Urine Urobilinogen Ur Leukocyte Esterase Urine RBC (Auto) Urine Microscopic WBC Ur Squamous Epith Cells reviewed J.P. - EKG Data EKG comments: reviewed J.P. - Imaging and Cardiology CT scan - chest Status: Report reviewed by me (PaoP.) CT scan - head Status: Report reviewed by me (Anjel) Chest x-ray Status: Report reviewed by me (Anjel) Assessment & Plan (1) Acute respiratory failure Status: Acute Priority: High (2) Aspiration pneumonia Status: Acute (3) COPD exacerbation Status: Acute Priority: High - Assessment and Plan (Free Text) Plan: intubated, CPAP-PS, atempt of weaning, continue Albuterol, Solu-Medrol, Zithromax, Zosyn and rest of Tx. - Date & Time Date: 06/18/18 Time: 10:20
[2018-06-18] MEDS: Enoxaparin 40 mg Syringe SC SCH (17:16)
[2018-06-18] MEDS: Insulin Detemir 100 Units/ml Inj SC SCH (21:30)
[2018-06-19] MEDS: Albuterol 0.083% Inhal Sol (2.5 mg/3 mL) UD INH SCH ×2 (00:59→08:18)
[2018-06-19] MEDS: Sodium Chloride 0.9% 1,000 ML IV SCH ×2 (04:22→16:59)
[2018-06-19] MEDS: Piperacillin/Tazobact 3.375 GM in Sodium Chloride 0.9% 100 ML IVPB SCH ×4 (04:23→21:33)
[2018-06-19] MEDS: Insulin Lispro (humaLOG) 100 Units/ml Inj SC SCH ×4 (04:28→21:32)
[2018-06-19 05:20] LABS: HEMOGLOBIN 12.8 g/dL (12.0-18.0); MEAN CELL VOLUME 84.1 fl (80.0-94.0); MEAN CORPUSCULAR HGB CONC 33.3 g/dL (33.0-37.0); RBC 4.58 Mil/uL (4.40-5.90); RED CELL DISTRIBUTION WIDTH 14.5 % (11.5-14.5); WHITE BLOOD COUNT 10.6 K/uL (4.8-10.8)
[2018-06-19 05:26] LABS: BLOOD UREA NITROGEN 17 mg/dl (9-20); CALCIUM 8.6 mg/dL (8.4-10.2); GFR NON-AFRICAN AMERICAN > 60
--- NOTE | 2018-06-19 06:57 | CP.PCM.PN ---
<Yudelka Luna - Last Filed: 06/19/18 11:09> Subjective - Date & Time of Evaluation Date of Evaluation: 06/19/18 Time of Evaluation: 06:56 - Subjective Subjective: Patient seen and examined today in ICU Extubated, lying comfortable on bed, supplemental O2 via NC at 2 lmp, awake, alert, talkative with slow speech, cooperative with exam. No acute overnight events VSS, afebrile Objective - Vital Signs/Intake and Output Vital Signs (last 24 hours): Temp Pulse Resp BP Pulse Ox 99.0 F 65 15 118/58 L 100 06/19/18 06:00 06/19/18 06:00 06/19/18 06:00 06/19/18 06:00 06/19/18 06:00 Intake and Output: 06/18/18 06/19/18 18:59 06:59 Intake Total 1100 1025 Output Total 600 900 Balance 500 125 - Medications Medications: Current Medications Albuterol Sulfate (Albuterol 0.083% Inhal Sandi (2.5 Mg/3 Ml) Ud) 2.5 mg INH RQ6 KEARA Last Admin: 06/19/18 00:59 Dose: 2.5 mg Enoxaparin Sodium (Lovenox) 40 mg SC DAILY KEARA; Protocol Last Admin: 06/18/18 17:16 Dose: 40 mg Fentanyl Citrate 2,500 mcg/ (Dextrose) 250 mls @ 2.5 mls/hr IV .Q24H KEARA; Protocol Last Titration: 06/17/18 20:27 Dose: 300 mcg/hr, 30 mls/hr Fentanyl Citrate 2,500 mcg/ (Dextrose) 250 mls @ 3 mls/hr IV .Q24H KEARA; Protocol Last Titration: 06/18/18 00:15 Dose: 49 mcg/hr, 4.9 mls/hr Piperacillin Sod/Tazobactam (Sod 3.375 gm/ Sodium Chloride) 100 mls @ 100 mls/hr IVPB Q6 KEARA; Protocol Last Admin: 06/19/18 04:23 Dose: 100 mls/hr Sodium Chloride (Sodium Chloride 0.9%) 1,000 mls @ 75 mls/hr IV .[id number] KEARA Last Admin: 06/19/18 04:22 Dose: 75 mls/hr Azithromycin 500 mg/ Sodium (Chloride) 250 mls @ 250 mls/hr IVPB DAILY KEARA; Protocol Last Admin: 06/18/18 09:34 Dose: 250 mls/hr Insulin Detemir (Levemir) 15 units SC HS KEARA Last Admin: 06/18/18 21:30 Dose: 15 unit Insulin Human Lispro (Humalog) 0 units SC Q6H [facility]ARA; Protocol Last Admin: 06/19/18 04:28 Dose: 4 units Methylprednisolone (Solu-Medrol) 40 mg IVP Q12 KEARA Last Admin: 06/18/18 20:08 Dose: 40 mg - Labs Labs: 06/19/18 05:08 06/19/18 05:08 PT 10.6 Seconds (9.8-13.1) 06/17/18 18:30 INR 0.9 06/17/18 18:30 APTT 27.8 Seconds (25.6-37.1) 06/17/18 18:30 - Constitutional Appears: No Acute Distress - Head Exam Head Exam: NORMAL INSPECTION - Eye Exam Eye Exam: EOMI, PERRL - Respiratory Exam Respiratory Exam: Clear to Ausculation Bilateral, NORMAL BREATHING PATTERN - Cardiovascular Exam Cardiovascular Exam: REGULAR RHYTHM, +S1, +S2 - GI/Abdominal Exam GI & Abdominal Exam: Soft, Normal Bowel Sounds. absent: Distended, Tenderness - Extremities Exam Extremities Exam: absent: Calf Tenderness, Pedal Edema - Neurological Exam Neurological Exam: Alert, Awake, Oriented x3 Neuro motor strength exam: Left Upper Extremity: 5, Right Upper Extremity: 2/1, Left Lower Extremity: 5, Right Lower Extremity: 5 - Skin Skin Exam: Dry, Warm Assessment and Plan - Assessment and Plan (Free Text) Assessment: 63 years old male with hx of DM insulin requiring, HTN and CVA with right side weakness, aphasia and difficulty in swallowing. He was brought to the E after an episode of acute unset of respiratory distress and choking while eating. The EMS found him desaturating to the 80s and he was placed on oxygen. In the ED he was intubated. Now extubated, stable, pending transfer from ICU. Acute Respiratory distress, resolved - r/o aspiration - CXR negative for acute lung changes - consult pulmonary Dr Pickens - c/ IV zocyn and Zythromax - Extubated, on NC O2sat 99% Hypoxemia, resolved - NC at 2 lpm --O2sat 99% - Albuterol DM II with Hyperglycemia - Continue levemir and Novolog sliding scale Hx of CVA with right sided weakness - PT/OT/ST DVT prophylaxis - lovenox Stroke status: full code Case seen and examined with Dr Combs. Marcelina PGY 2 <Arina Combs - Last Filed: 06/19/18 14:51> Objective - Vital Signs/Intake and Output Vital Signs (last 24 hours): Temp Pulse Resp BP Pulse Ox 99.3 F 62 13 129/90 98 06/19/18 12:00 06/19/18 12:00 06/19/18 12:00 06/19/18 12:00 06/19/18 12:00 Intake and Output: 06/19/18 06/19/18 06:59 18:59 Intake Total 1025 350 Output Total 900 Balance 125 350 - Medications Medications: Current Medications Acetylcysteine (Mucomyst 10% 4ml) 2 ml IH Q8 KEARA Albuterol Sulfate (Albuterol 0.083% Inhal Sandi (2.5 Mg/3 Ml) Ud) 2.5 mg INH RQ4 PRN PRN Reason: Shortness of Breath Enoxaparin Sodium (Lovenox) 40 mg SC DAILY KEARA; Protocol Last Admin: 06/19/18 09:10 Dose: 40 mg Piperacillin Sod/Tazobactam (Sod 3.375 gm/ Sodium Chloride) 100 mls @ 100 mls/hr IVPB Q6 KEARA; Protocol Last Admin: 06/19/18 09:12 Dose: 100 mls/hr Sodium Chloride (Sodium Chloride 0.9%) 1,000 mls @ 75 mls/hr IV .[id number] KEARA Last Admin: 06/19/18 04:22 Dose: 75 mls/hr Azithromycin 500 mg/ Sodium (Chloride) 250 mls @ 250 mls/hr IVPB DAILY KEARA; Pro tocol Last Admin: 06/19/18 09:11 Dose: 250 mls/hr Insulin Detemir (Levemir) 25 units SC HS KEARA Insulin Human Lispro (Humalog) 0 units SC Q6H KEARA; Protocol Last Admin: 06/19/18 12:33 Dose: 2 units Methylprednisolone (Solu-Medrol) 40 mg IVP Q12 KEARA Last Admin: 06/19/18 09:11 Dose: 40 mg - Labs Labs: 06/19/18 05:08 06/19/18 05:08 PT 10.6 Seconds (9.8-13.1) 06/17/18 18:30 INR 0.9 06/17/18 18:30 APTT 27.8 Seconds (25.6-37.1) 06/17/18 18:30 Attending/Attestation - Attestation I have personally seen and examined this patient.: Yes I have fully participated in the care of the patient.: Yes I have reviewed all pertinent clinical information, including history, physical exam and plan: Yes Notes (Text): Acute Hypoxic and Hypercapneic Respiratory Failure COPD exacerbation DM type II on Insulin Hx of CVA Pt was extubated yesterday tolerating O2 per NC passed swallow eval - Nectart Thickened , finely chopped diet -d/c [place] cath cont IV Solumedrol and Duonebs cont IV AZithro and Zosyn Increase Levemir to 25 units q hs
[2018-06-19] MEDS: Enoxaparin 40 mg Syringe SC SCH (09:10)
[2018-06-19] MEDS: Azithromycin 500 MG in Sodium Chloride 0.9% 250 ML IVPB SCH (09:11)
[2018-06-19] MEDS: MethylPREDNISolone 40 mg Vial IVP SCH ×2 (09:11→21:26)
[2018-06-19] MEDS ORDERED: Sodium Chloride 3% for Inhalation 4 ML VIAL.NEB IH PRN (13:08)
[2018-06-19] MEDS: Albuterol 0.083% Inhal Sol (2.5 mg/3 mL) UD INH PRN ×4 (15:20→23:35)
[2018-06-19] MEDS: Acetylcysteine 10% 4 ML IH SCH ×3 (15:20→23:35)
--- NOTE | 2018-06-19 16:36 | CP.PCM.PN ---
Subjective - Date & Time of Evaluation Date of Evaluation: 06/19/18 Time of Evaluation: 11:50 - Subjective Subjective: F/U Pulmonary consult Pt extubated, able to talk, follows commands, chest congestion. Objective - Vital Signs/Intake and Output Vital Signs (last 24 hours): Temp Pulse Resp BP Pulse Ox 99.3 F 65 20 141/58 L 95 06/19/18 12:00 06/19/18 15:00 06/19/18 14:00 06/19/18 15:00 06/19/18 15:00 Intake and Output: 06/19/18 06/19/18 06:59 18:59 Intake Total 1025 350 Output Total 900 Balance 125 350 - Medications Medications: Current Medications Acetylcysteine (Mucomyst 10% 4ml) 2 ml IH Q8 KEARA Last Admin: 06/19/18 15:20 Dose: 2 ml Albuterol Sulfate (Albuterol 0.083% Inhal Sandi (2.5 Mg/3 Ml) Ud) 2.5 mg INH RQ4 PRN PRN Reason: Shortness of Breath Last Admin: 06/19/18 15:20 Dose: 2.5 mg Enoxaparin Sodium (Lovenox) 40 mg SC DAILY KEARA; Protocol Last Admin: 06/19/18 09:10 Dose: 40 mg Piperacillin Sod/Tazobactam (Sod 3.375 gm/ Sodium Chloride) 100 mls @ 100 mls/hr IVPB Q6 KEARA; Protocol Last Admin: 06/19/18 09:12 Dose: 100 mls/hr Sodium Chloride (Sodium Chloride 0.9%) 1,000 mls @ 75 mls/hr IV .[id number] KEARA Last Admin: 06/19/18 04:22 Dose: 75 mls/hr Azithromycin 500 mg/ Sodium (Chloride) 250 mls @ 250 mls/hr IVPB DAILY KEARA; Protocol Last Admin: 06/19/18 09:11 Dose: 250 mls/hr Insulin Detemir (Levemir) 25 units SC HS KEARA Insulin Human Lispro (Humalog) 0 units SC Q6H KEARA; Protocol Last Admin: 06/19/18 12:33 Dose: 2 units Methylprednisolone (Solu-Medrol) 40 mg IVP Q12 KEARA Last Admin: 06/19/18 09:11 Dose: 40 mg - Labs Labs: 06/19/18 05:08 06/19/18 05:08 PT 10.6 Seconds (9.8-13.1) 06/17/18 18:30 INR 0.9 06/17/18 18:30 APTT 27.8 Seconds (25.6-37.1) 06/17/18 18:30 - Constitutional Appears: No Acute Distress - Head Exam Head Exam: NORMAL INSPECTION - Eye Exam Eye Exam: PERRL - ENT Exam ENT Exam: Normal Exam - Neck Exam Neck Exam: Normal Inspection - Respiratory Exam Respiratory Exam: Decreased Breath Sounds (at bases), Rhonchi (at bases) - Cardiovascular Exam Cardiovascular Exam: REGULAR RHYTHM - GI/Abdominal Exam GI & Abdominal Exam: Soft, Normal Bowel Sounds - Extremities Exam Additional comments: Mild weakness RUE > RLE - Back Exam Back Exam: NORMAL INSPECTION - Neurological Exam Neurological Exam: Alert, Oriented x3 Additional comments: Follows commands, R hemiparesia. - Skin Skin Exam: Warm Assessment and Plan (1) Acute respiratory failure Status: Acute (2) Aspiration pneumonia Status: Acute (3) COPD exacerbation Status: Acute - Assessment and Plan (Free Text) Plan: Pt on O2 NC, continue Zithromax, Zosyn, Solu-Medrol, add Mucomyst.
[2018-06-19] MEDS ORDERED: Insulin Detemir 100 Units/ml Inj SC SCH (22:00)
--- NOTE | 2018-06-20 01:13 | PN ---
DATE: 06/19/2018 CRITICAL CARE PROGRESS NOTE LOCATION: The patient in ICU bed 422. TIME SPENT: 35 minutes. The patient is seen and evaluated at the bedside. Past medical, surgical, family and social history reviewed. Case discussed in multidisciplinary ICU rounds this morning. SUBJECTIVE: A 63-year-old male with a history of insulin-requiring diabetes, hypertension status post CVA with right hemiparesis and aphasia and difficulty swallowing. The patient was admitted in respiratory distress and choking while eating, required intubation and placed on mechanical ventilation, extubated, placed on 2 L nasal cannula. Overnight telemetry, sinus rhythm, afebrile, normotensive, noted to have secretions, pulling in the throat requiring suctioning. Remains afebrile, normotensive. PHYSICAL EXAMINATION: VITAL SIGNS: Temperature 99.3, heart rate 65, blood pressure 141/58, saturation 95% on room air. Intake 2125. Output 1500. Positive balance 625. HEAD, EYES, EARS, NOSE, AND THROAT: Pupils are round, reactive to light and accommodation. Extraocular muscles are intact. Conjunctivae pink. Sclerae white. NECK: Supple. Trachea is central. CHEST: Bilateral breath sounds. Scattered rhonchi. HEART: Rhythm regular. S1, S2 normal. ABDOMEN: Bowel sounds are present and soft. Liver and spleen are not palpable. MEDICATIONS: Include Mucomyst 2 mL via nebulizer every 8 hours, albuterol inhalation 2.5 mg via nebulizer every 4 hours, azithromycin 500 mg daily, Lovenox 40 mg subcu daily, Levemir 25 units subcu daily, Solu-Medrol 40 mg IV, every 12 hours, Zosyn 3.375 g IV every 6 hours, sodium chloride at 75 mL per hour. LABORATORY DATA: WBC 10.6, hemoglobin 12.8, hematocrit 38.5, and platelet count 192. PT 10.6, INR 0.9, PTT 27.8. ABG; pH 7.35, pCO2 of 45, pO2 of 260. SMA-7: Sodium 141, potassium 4.1, chloride 107, CO2 of 26, blood urea nitrogen 17, creatinine 1, random glucose 289, and calcium 8.6. Urinalysis is negative. Microbiology; urine culture no growth, blood culture no growth. Chest x-ray; no active disease. Head CT; no intracranial mass, hemorrhage or evidence of acute infarct. IMPRESSION AND PLAN: Status post acute hypoxic, hypercapnic respiratory failure, chronic obstructive pulmonary disease exacerbation, history of cerebrovascular accident, currently extubated, on oxygen supplement. Seen by swallow evaluation, tolerating nectar thick finely chopped diet. Continue azithromycin and Zosyn. Optimize control for blood sugar, currently Levemir 25 units at night. Continue with Accu-Chek with regular insulin coverage, Solu-Medrol 40 mg intravenous every 12 hours. Wean off in one to two days. Markell Luque MD
[2018-06-20] MEDS: Insulin Lispro (humaLOG) 100 Units/ml Inj SC SCH ×5 (03:10→21:32)
[2018-06-20] MEDS: Piperacillin/Tazobact 3.375 GM in Sodium Chloride 0.9% 100 ML IVPB SCH ×4 (03:45→21:30)
[2018-06-20 05:51] LABS: HEMOGLOBIN 12.8 g/dL (12.0-18.0); MEAN CELL VOLUME 83.7 fl (80.0-94.0); MEAN CORPUSCULAR HGB CONC 33.5 g/dL (33.0-37.0); RBC 4.58 Mil/uL (4.40-5.90); RED CELL DISTRIBUTION WIDTH 14.2 % (11.5-14.5); WHITE BLOOD COUNT 7.8 K/uL (4.8-10.8)
[2018-06-20 06:40] LABS: ALB/GLOB RATIO 1.4 (1.0-2.1); ALBUMIN 3.6 g/dL (3.5-5.0); ALT/SGPT 24 U/L (21-72); AST/SGOT 16 U/L (17-59); BLOOD UREA NITROGEN 19 mg/dl (9-20); CALCIUM 8.9 mg/dL (8.4-10.2); GFR NON-AFRICAN AMERICAN > 60
--- NOTE | 2018-06-20 06:52 | CP.PCM.PN ---
<Yudelka Luna - Last Filed: 06/20/18 13:43> Subjective - Date & Time of Evaluation Date of Evaluation: 06/20/18 Time of Evaluation: 06:52 - Subjective Subjective: Patient seen and examined today in ICU lying comfortable on bed, supplemental O2 via NC at 2 lmp, awake, alert, cooperative with exam. No acute overnight events VSS, afebrile Stable to transfer to telemetry. Objective - Vital Signs/Intake and Output Vital Signs (last 24 hours): Temp Pulse Resp BP Pulse Ox 98.4 F 57 L 13 121/58 L 99 06/20/18 04:00 06/20/18 06:00 06/20/18 06:00 06/20/18 06:00 06/20/18 06:00 Intake and Output: 06/19/18 06/20/18 18:59 06:59 Intake Total 1350 810 Output Total 800 830 Balance 550 -20 - Medications Medications: Current Medications Acetylcysteine (Mucomyst 10% 4ml) 2 ml IH Q8 KEARA Last Admin: 06/19/18 23:35 Dose: 2 ml Albuterol Sulfate (Albuterol 0.083% Inhal Sandi (2.5 Mg/3 Ml) Ud) 2.5 mg INH RQ4 PRN PRN Reason: Shortness of Breath Last Admin: 06/19/18 23:34 Dose: 2.5 mg Enoxaparin Sodium (Lovenox) 40 mg SC DAILY KEARA; Protocol Last Admin: 06/19/18 09:10 Dose: 40 mg Piperacillin Sod/Tazobactam (Sod 3.375 gm/ Sodium Chloride) 100 mls @ 100 mls/hr IVPB Q6 KEARA; Protocol Last Admin: 06/20/18 03:45 Dose: 100 mls/hr Azithromycin 500 mg/ Sodium (Chloride) 250 mls @ 250 mls/hr IVPB DAILY KEARA; Protocol Last Admin: 06/19/18 09:11 Dose: 250 mls/hr Insulin Detemir (Levemir) 25 units SC HS KEARA Last Admin: 06/19/18 21:31 Dose: 25 units Insulin Human Lispro (Humalog) 0 units SC Q6H KEARA; Protocol Last Admin: 06/20/18 03:10 Dose: 4 units Methylprednisolone (Solu-Medrol) 40 mg IVP Q12 KEARA Last Admin: 06/19/18 21:26 Dose: 40 mg - Labs Labs: 06/20/18 05:38 06/20/18 05:38 PT 10.6 Seconds (9.8-13.1) 06/17/18 18:30 INR 0.9 06/17/18 18:30 APTT 27.8 Seconds (25.6-37.1) 06/17/18 18:30 - Constitutional Appears: No Acute Distress - Head Exam Head Exam: NORMAL INSPECTION - Eye Exam Eye Exam: EOMI, PERRL - Respiratory Exam Respiratory Exam: Clear to Ausculation Bilateral, NORMAL BREATHING PATTERN - Cardiovascular Exam Cardiovascular Exam: REGULAR RHYTHM, +S1, +S2 - GI/Abdominal Exam GI & Abdominal Exam: Soft, Normal Bowel Sounds. absent: Tenderness - Extremities Exam Extremities Exam: absent: Calf Tenderness, Pedal Edema - Neurological Exam Additional comments: Alert, Awake, Oriented x3, right upper extremity monoparesis, Right Lower Extremity strength conserved. - Skin Skin Exam: Dry, Warm Assessment and Plan - Assessment and Plan (Free Text) Assessment: 63 years old male with hx of DM insulin requiring, HTN and CVA with right side weakness, aphasia and difficulty in swallowing. He was brought to the E after an episode of acute unset of respiratory distress and choking while eating. The EMS found him desaturating to the 80s and he was placed on oxygen. In the ED he was intubated. Now extubated, stable, pending transfer from ICU. Chest CT: Foci of airspace consolidation at the posterior of the bilateral lower lobes and right upper lobe likely represent aspiration. Moderately dilated esophagus contains fluid and air-fluid level. Plan: Acute Respiratory distress, resolved Aspiration PNA - CXR negative for acute lung changes - Pulmology Dr Pickens consulted, recs appreciated - c/ IV zocyn and Zythromax - on NC O2sat 99% - blood and urine cx negative - f/u sputum cx - stable for transfer to [facility] DM II with Hyperglycemia - Continue levemir and Novolog sliding scale - Increase levemir 25 units daily Hx of CVA with right sided weakness - PT/OT/ST - [place] Thickened , finely chopped diet DVT prophylaxis - lovenox Stroke status: full code Case seen and examined with Dr Combs. Marcelina PGY 2 <Arina Combs - Last Filed: 06/20/18 16:30> Objective - Vital Signs/Intake and Output Vital Signs (last 24 hours): Temp Pulse Resp BP Pulse Ox 98.4 F 59 L 19 149/55 L 96 06/20/18 16:00 06/20/18 16:00 06/20/18 16:00 06/20/18 16:00 06/20/18 16:00 Intake and Output: 06/20/18 06/20/18 06:59 18:59 Intake Total 810 960 Output Total 830 700 Balance -20 260 - Medications Medications: Current Medications Acetylcysteine (Mucomyst 10% 4ml) 2 ml IH Q8 KEARA Last Admin: 06/20/18 15:43 Dose: 2 ml Albuterol Sulfate (Albuterol 0.083% Inhal Sandi (2.5 Mg/3 Ml) Ud) 2.5 mg INH RQ4 PRN PRN Reason: Shortness of Breath Last Admin: 06/20/18 15:43 Dose: 2.5 mg Enoxaparin Sodium (Lovenox) 40 mg SC DAILY KEARA; Protocol Last Admin: 06/20/18 08:15 Dose: 40 mg Piperacillin Sod/Tazobactam (Sod 3.375 gm/ Sodium Chloride) 100 mls @ 100 mls/hr IVPB Q6 KEARA; Protocol Last Admin: 06/20/18 15:32 Dose: 100 mls/hr Azithromycin 500 mg/ Sodium (Chloride) 250 mls @ 250 mls/hr IVPB DAILY KEARA; Protocol Last Admin: 06/20/18 08:15 Dose: 250 mls/hr Insulin Detemir (Levemir) 25 units SC HS KEARA Last Admin: 06/19/18 21:31 Dose: 25 units Insulin Human Lispro (Humalog) 0 units SC Q6H KEARA; Protocol Last Admin: 06/20/18 11:23 Dose: 6 units Methylprednisolone (Solu-Medrol) 40 mg IVP Q12 KEARA Last Admin: 06/20/18 08:14 Dose: 40 mg - Labs Labs: 06/20/18 05:38 06/20/18 05:38 PT 10.6 Seconds (9.8-13.1) 06/17/18 18:30 INR 0.9 06/17/18 18:30 APTT 27.8 Seconds (25.6-37.1) 06/17/18 18:30 Attending/Attestation - Attestation I have personally seen and examined this patient.: Yes I have fully participated in the care of the patient.: Yes I have reviewed all pertinent clinical information, including history, physical exam and plan: Yes Notes (Text): Acute Hypoxic and Hypercapneic Respiratory Failure COPD exacerbation Aspiration Pneumonia DM type II on Insulin, with Hyperglycemia due to steroids Hx of CVA Pt was initially intubated , now extubated tolerating O2 per NC passed swallow eval - [place] Thickened , finely chopped diet -d/c [place] cath cont IV Solumedrol and Duonebs, Decrease Solumedrol to 40 mg daily cont IV AZithro and Zosyn Increase Levemir to 32 units q hs May transfer to Telemetry Accucheck with coverage
[2018-06-20] MEDS: Albuterol 0.083% Inhal Sol (2.5 mg/3 mL) UD INH PRN ×2 (07:53→15:43)
[2018-06-20] MEDS: Acetylcysteine 10% 4 ML IH SCH ×3 (07:54→23:32)
[2018-06-20] MEDS: MethylPREDNISolone 40 mg Vial IVP SCH (08:14)
[2018-06-20] MEDS: Azithromycin 500 MG in Sodium Chloride 0.9% 250 ML IVPB SCH (08:15)
[2018-06-20] MEDS: Enoxaparin 40 mg Syringe SC SCH (08:15)
--- NOTE | 2018-06-20 14:43 | CP.PCM.PN ---
Subjective - Date & Time of Evaluation Date of Evaluation: 06/20/18 Time of Evaluation: 13:30 - Subjective Subjective: F/U PNA, COPD Exacerbation. Pt awake, no A/D, mild SOB on exertion, answer questions, shaking my hand with his left hand. Objective - Vital Signs/Intake and Output Vital Signs (last 24 hours): Temp Pulse Resp BP Pulse Ox 98.6 F 62 58 H 136/66 18 L 06/20/18 12:00 06/20/18 11:00 06/20/18 12:00 06/20/18 12:00 06/20/18 12:00 Intake and Output: 06/20/18 06/20/18 06:59 18:59 Intake Total 810 720 Output Total 830 500 Balance -20 220 - Medications Medications: Current Medications Acetylcysteine (Mucomyst 10% 4ml) 2 ml IH Q8 KEARA Last Admin: 06/20/18 07:54 Dose: 2 ml Albuterol Sulfate (Albuterol 0.083% Inhal Sandi (2.5 Mg/3 Ml) Ud) 2.5 mg INH RQ4 PRN PRN Reason: Shortness of Breath Last Admin: 06/20/18 07:53 Dose: 2.5 mg Enoxaparin Sodium (Lovenox) 40 mg SC DAILY KEARA; Protocol Last Admin: 06/20/18 08:15 Dose: 40 mg Piperacillin Sod/Tazobactam (Sod 3.375 gm/ Sodium Chloride) 100 mls @ 100 mls/hr IVPB Q6 KEARA; Protocol Last Admin: 06/20/18 09:15 Dose: 100 mls/hr Azithromycin 500 mg/ Sodium (Chloride) 250 mls @ 250 mls/hr IVPB DAILY KEARA; Protocol Last Admin: 06/20/18 08:15 Dose: 250 mls/hr Insulin Detemir (Levemir) 25 units SC HS KEARA Last Admin: 06/19/18 21:31 Dose: 25 units Insulin Human Lispro (Humalog) 0 units SC Q6H KEARA; Protocol Last Admin: 06/20/18 11:23 Dose: 6 units Methylprednisolone (Solu-Medrol) 40 mg IVP Q12 KEARA Last Admin: 06/20/18 08:14 Dose: 40 mg - Labs Labs: 06/20/18 05:38 06/20/18 05:38 PT 10.6 Seconds (9.8-13.1) 06/17/18 18:30 INR 0.9 06/17/18 18:30 APTT 27.8 Seconds (25.6-37.1) 06/17/18 18:30 - Constitutional Appears: No Acute Distress - Head Exam Head Exam: NORMAL INSPECTION - Eye Exam Eye Exam: PERRL - ENT Exam ENT Exam: Normal Exam - Neck Exam Neck Exam: Normal Inspection - Respiratory Exam Respiratory Exam: Decreased Breath Sounds (at bases), Rhonchi (scattered) - Cardiovascular Exam Cardiovascular Exam: REGULAR RHYTHM - GI/Abdominal Exam GI & Abdominal Exam: Soft, Normal Bowel Sounds - Extremities Exam Additional comments: Mild weakness RUE/LUE - Back Exam Additional comments: L mid buttock small wound - Neurological Exam Neurological Exam: Awake, Oriented x3 Additional comments: follows commands, R hemiparesia - Psychiatric Exam Psychiatric exam: Normal Mood - Skin Skin Exam: Warm Assessment and Plan (1) Acute respiratory failure Status: Acute (2) Aspiration pneumonia Status: Acute (3) COPD exacerbation Status: Acute - Assessment and Plan (Free Text) Plan: Pt on O2NC tolerating well, continue Albuterol/Mucomyst, Zithromax, Zosyn, Solu- Medrol and rest of Tx.
[2018-06-20] MEDS: Insulin Detemir 100 Units/ml Inj SC SCH (22:22)
[2018-06-21] MEDS: Piperacillin/Tazobact 3.375 GM in Sodium Chloride 0.9% 100 ML IVPB SCH ×4 (03:08→21:00)
[2018-06-21] MEDS: Insulin Lispro (humaLOG) 100 Units/ml Inj SC SCH ×4 (03:14→20:48)
[2018-06-21 05:32] LABS: HEMOGLOBIN 13.4 g/dL (12.0-18.0); MEAN CELL VOLUME 82.9 fl (80.0-94.0); MEAN CORPUSCULAR HEMOGLOBIN 27.7 pg (27.0-31.0); MEAN CORPUSCULAR HGB CONC 33.4 g/dL (33.0-37.0); RBC 4.85 Mil/uL (4.40-5.90); WHITE BLOOD COUNT 8.7 K/uL (4.8-10.8)
[2018-06-21 05:39] LABS: BLOOD UREA NITROGEN 17 mg/dl (9-20); CALCIUM 8.9 mg/dL (8.4-10.2); GFR NON-AFRICAN AMERICAN > 60
[2018-06-21 05:55] LABS: RED CELL DISTRIBUTION WIDTH 14.6 % (11.5-14.5)
[2018-06-21] MEDS ORDERED: Potassium Chloride 40 MEQ in Sodium Chloride 0.9% 500 ML IV ONE (07:00)
[2018-06-21] MEDS ORDERED: Potassium Chloride 40 MEQ in Sodium Chloride 0.9% 500 ML IV SCH (07:00)
[2018-06-21] MEDS: Albuterol 0.083% Inhal Sol (2.5 mg/3 mL) UD INH PRN ×3 (07:34→15:24)
[2018-06-21] MEDS: Acetylcysteine 10% 4 ML IH SCH ×6 (07:34→15:24)
[2018-06-21] MEDS ORDERED: Potassium Chloride 20 mEq ER Tab PO ONE (07:40)
--- NOTE | 2018-06-21 08:02 | CP.PCM.PN ---
Subjective - Date & Time of Evaluation Date of Evaluation: 06/21/18 Time of Evaluation: 08:02 - Subjective Subjective: Patient seen and examined today in ICU feeling better, O2 sat 100% on RA, no CP or sob, cough improving. No acute overnight events VSS, afebrile Waiting transfer to telemetry. Objective - Vital Signs/Intake and Output Vital Signs (last 24 hours): Temp Pulse Resp BP Pulse Ox 98.8 F 54 L 18 126/69 97 06/21/18 00:00 06/21/18 06:00 06/21/18 06:00 06/21/18 06:00 06/21/18 06:00 Intake and Output: 06/21/18 06/21/18 06:59 18:59 Intake Total 200 500 Output Total 500 Balance -300 500 - Medications Medications: Current Medications Acetylcysteine (Mucomyst 10% 4ml) 2 ml IH Q8 KEARA Last Admin: 06/21/18 07:34 Dose: 2 ml Albuterol Sulfate (Albuterol 0.083% Inhal Sandi (2.5 Mg/3 Ml) Ud) 2.5 mg INH RQ4 PRN PRN Reason: Shortness of Breath Last Admin: 06/21/18 07:34 Dose: 2.5 mg Enoxaparin Sodium (Lovenox) 40 mg SC DAILY KEARA; Protocol Last Admin: 06/20/18 08:15 Dose: 40 mg Piperacillin Sod/Tazobactam (Sod 3.375 gm/ Sodium Chloride) 100 mls @ 100 mls/hr IVPB Q6 KEARA; Protocol Last Admin: 06/21/18 03:08 Dose: 100 mls/hr Azithromycin 500 mg/ Sodium (Chloride) 250 mls @ 250 mls/hr IVPB DAILY KEARA; Protocol Last Admin: 06/20/18 08:15 Dose: 250 mls/hr Potassium Chloride 40 meq/ (Sodium Chloride) 520 mls @ 125 mls/hr IV .Q4H10M ONE Stop: 06/21/18 11:09 Last Admin: 06/21/18 07:03 Dose: 125 mls/hr Insulin Detemir (Levemir) 32 units SC HS KEARA Last Admin: 06/20/18 22:22 Dose: 32 units Insulin Human Lispro (Humalog) 0 units SC Q6H KEARA; Protocol Last Admin: 06/21/18 03:14 Dose: 3 units Methylprednisolone (Solu-Medrol) 40 mg IVP DAILY KEARA - Labs Labs: 06/21/18 05:17 06/21/18 05:17 PT 10.6 Seconds (9.8-13.1) 06/17/18 18:30 INR 0.9 06/17/18 18:30 APTT 27.8 Seconds (25.6-37.1) 06/17/18 18:30 - Constitutional Appears: No Acute Distress - Head Exam Head Exam: NORMAL INSPECTION - Respiratory Exam Respiratory Exam: Clear to Ausculation Bilateral, NORMAL BREATHING PATTERN. absent: Accessory Muscle Use - Cardiovascular Exam Cardiovascular Exam: REGULAR RHYTHM, +S1, +S2. absent: Tachycardia - GI/Abdominal Exam GI & Abdominal Exam: Soft, Normal Bowel Sounds. absent: Tenderness - Extremities Exam Extremities Exam: absent: Calf Tenderness, Pedal Edema - Neurological Exam Neurological Exam: Alert, Awake, Oriented x3 Additional comments: RUE monoparesis, Right Lower Extremity strength conserved. - Psychiatric Exam Psychiatric exam: Normal Affect - Skin Skin Exam: Dry, Warm Assessment and Plan - Assessment and Plan (Free Text) Assessment: 63 years old male with hx of DM insulin requiring, HTN and CVA with right side weakness, aphasia and difficulty in swallowing. He was brought to the E after an episode of acute unset of respiratory distress and choking while eating. The EMS found him desaturating to the 80s and he was placed on oxygen. In the ED he was intubated. Patient stable, waiting transfer to [facility]. Chest CT: Foci of airspace consolidation at the posterior of the bilateral lower lobes and right upper lobe likely represent aspiration. Moderately dilated esophagus contains fluid and air-fluid level. Plan: Acute Respiratory distress, resolved Aspiration PNA - Pulmology Dr Pickens consulted, recs appreciated - sputum cx positive for Gram negative gt - c/ IV zocyn and Zythromax - blood and urine cx negative - stable for transfer to tele DM II with Hyperglycemia - on steroids - Continue levemir and Novolog sliding scale - Increase levemir to 32 units daily Hypokalemia - K: 3.2 - repleted - f/u bmp Hx of CVA with right sided weakness - PT/OT/ST - [place] Thickened , finely chopped diet - TCU recommended, referred to DVT prophylaxis - lovenox Stroke status: full code Case seen and examined with Dr Dash. Marcelina PGY 2
[2018-06-21] MEDS: Enoxaparin 40 mg Syringe SC SCH (08:26)
[2018-06-21] MEDS: Azithromycin 500 MG in Sodium Chloride 0.9% 250 ML IVPB SCH (08:27)
[2018-06-21] MEDS ORDERED: MethylPREDNISolone 40 mg Vial IVP SCH (09:00)
--- NOTE | 2018-06-21 13:46 | CP.PCM.DIS ---
Provider - Provider Date of Admission: 06/17/18 19:53 Attending physician: Butch Monk Primary care physician: NO FAMILY PROVIDER Consults: 06/17/18 21:58 Pulmonology Consult Routine Comment: Consulting Provider: Marin Pickens Consulting Physician: Marin Pickens Reason for Consult: Respiratory distress/Hypoxemia/ Intubated 06/18/18 01:21 Nursing Referral for Palliative Care Routine Comment: Consulting Provider: Gabriela Carr Physician Instructions: Reason For Exam: previous CVA with right sided weakness 06/18/18 01:40 Case Management Referral Routine Comment: Physician Instructions: Reason For Exam: Reason for Referral: Discharge Planning Nursing Referral for Wound Care Routine Comment: Physician Instructions: Reason For Exam: pressure ulcer Pastoral Care Referral Routine Comment: Physician Instructions: Reason For Exam: Pt request Time Spent in preparation of Discharge (in minutes): 37 Diagnosis - Discharge Diagnosis (1) Acute respiratory failure Status: Resolved Priority: High (2) Aspiration pneumonia Status: Acute (3) COPD exacerbation Status: Acute Priority: High (4) IDDM (insulin dependent diabetes mellitus) Status: Chronic (5) H/O: CVA (cerebrovascular accident) Status: Chronic Hospital Course - Lab Results Lab Results: Micro Results 06/19/18 20:40 Sputum Gram Stain - Final 06/19/18 20:40 Sputum Sputum Culture - Preliminary Gram Negative Mateo 06/17/18 19:03 Blood Blood Culture - Preliminary NO GROWTH AFTER 3 DAYS 06/17/18 18:45 Blood Blood Culture - Preliminary NO GROWTH AFTER 3 DAYS 06/18/18 17:38 Naris MRSA Culture (Admit) - Final MRSA NOT DETECTED 06/17/18 19:14 Urine,Catheterized Urine Culture - Final No Growth (<1,000 CFU/ML) Most Recent Lab Values WBC 8.7 K/uL (4.8-10.8) 06/21/18 05:17 RBC 4.85 Mil/uL (4.40-5.90) 06/21/18 05:17 Hgb 13.4 g/dL (12.0-18.0) 06/21/18 05:17 Hct 40.2 % (35.0-51.0) 06/21/18 05:17 MCV 82.9 fl (80.0-94.0) 06/21/18 05:17 MCH 27.7 pg (27.0-31.0) 06/21/18 05:17 MCHC 33.4 g/dL (33.0-37.0) 06/21/18 05:17 RDW 14.6 % (11.5-14.5) H 06/21/18 05:17 Plt Count 219 K/uL (130-400) 06/21/18 05:17 MPV 8.3 fl (7.2-11.7) 06/18/18 05:31 Neut % (Auto) 86.7 % (50.0-75.0) H 06/18/18 05:31 Lymph % (Auto) 8.0 % (20.0-40.0) L 06/18/18 05:31 Jay % (Auto) 5.1 % (0.0-10.0) 06/18/18 05:31 Eos % (Auto) 0.0 % (0.0-4.0) 06/18/18 05:31 Baso % (Auto) 0.2 % (0.0-2.0) 06/18/18 05:31 Neut # (Auto) 10.6 K/uL (1.8-7.0) H 06/18/18 05:31 Lymph # (Auto) 1.0 K/uL (1.0-4.3) 06/18/18 05:31 Jay # (Auto) 0.6 K/uL (0.0-0.8) 06/18/18 05:31 Eos # (Auto) 0.0 K/uL (0.0-0.7) 06/18/18 05:31 Baso # (Auto) 0.0 K/uL (0.0-0.2) 06/18/18 05:31 Neutrophils % (Manual) 83 % (42-75) H 06/18/18 05:31 Band Neutrophils % 2 % (0-2) 06/18/18 05:31 Lymphocytes % (Manual) 7 % (20-50) L 06/18/18 05:31 Reactive Lymphs % 1 % (0-0) H 06/18/18 05:31 Monocytes % (Manual) 6 % (0-10) 06/18/18 05:31 Myelocytes % 1 % (0-0) H 06/18/18 05:31 Platelet Estimate Normal (NORMAL) 06/18/18 05:31 Giant Platelets Present 06/18/18 05:31 Anisocytosis (manual) Slight 06/18/18 05:31 PT 10.6 Seconds (9.8-13.1) 06/17/18 18:30 INR 0.9 06/17/18 18:30 APTT 27.8 Seconds (25.6-37.1) 06/17/18 18:30 pCO2 45 mm/Hg (35-45) 06/18/18 04:24 pO2 216 mm/Hg (80-100) H 06/18/18 04:24 HCO3 24.1 mmol/L (21-28) 06/18/18 04:24 ABG pH 7.35 (7.35-7.45) 06/18/18 04:24 ABG Total CO2 26.2 mmol/L (22-28) 06/18/18 04:24 ABG O2 Saturation 100.4 % (95-98) H 06/18/18 04:24 ABG O2 Content 20.4 ML/dL (15-23) 06/18/18 04:24 ABG Base Excess -1.1 mmol/L (-2.0-3.0) 06/18/18 04:24 ABG Hemoglobin 14.6 g/dL (11.7-17.4) 06/18/18 04:24 ABG Carboxyhemoglobin 1.4 % (0.5-1.5) 06/18/18 04:24 POC ABG HHb (Measured) -0.4 % (0.0-5.0) L 06/18/18 04:24 ABG Methemoglobin 1.6 % (0.0-3.0) 06/18/18 04:24 ABG O2 Capacity 20.3 mL/dL (16-24) 06/18/18 04:24 Vasu Test Yes 06/18/18 04:24 ABG Potassium 4.6 mmol/L (3.6-5.2) 06/17/18 20:06 A-a O2 Difference 156.0 mm/Hg 06/18/18 04:24 Hgb O2 Saturation 97.4 % (95.0-98.0) 06/18/18 04:24 Sodium 139.0 mmol/L (132-148) 06/17/18 20:06 Chloride 108.0 mmol/L (98-107) H 06/17/18 20:06 Glucose 396 mg/dL (75-110) H 06/17/18 20:06 Lactate 2.3 mmol/L (0.7-2.1) H 06/17/18 20:06 Vent Mode A/c 06/18/18 04:24 Mechanical Rate 18 06/18/18 04:24 FiO2 60.0 % 06/18/18 04:24 Tidal Volume 500 06/18/18 04:24 PEEP 5 06/18/18 04:24 Blood Gas Comments Lac=2.3 06/17/18 20:06 Crit Value Called To deshaun Ruiz 06/17/18 20:06 Crit Value Called By 06/17/18 20:06 Crit Value Read Back Y 06/17/18 20:06 Blood Gas Notified Time 201106/17/18 20:06 Sodium 142 mmol/l (132-148) 06/21/18 05:17 Potassium 3.2 MMOL/L (3.6-5.0) L 06/21/18 05:17 Chloride 105 mmol/L (98-107) 06/21/18 05:17 Carbon Dioxide 26 mmol/L (22-30) 06/21/18 05:17 Anion Gap 14 (10-20) 06/21/18 05:17 BUN 17 mg/dl (9-20) 06/21/18 05:17 Creatinine 0.9 mg/dl (0.8-1.5) 06/21/18 05:17 Est GFR ( Amer) > 60 06/21/18 05:17 Est GFR (Non-Af Amer) > 60 06/21/18 05:17 POC Glucose (mg/dL) 225 mg/dL (65-110) H 06/21/18 03:13 Random Glucose 178 mg/dL (75-110) H 06/21/18 05:17 Calcium 8.9 mg/dL (8.4-10.2) 06/21/18 05:17 Phosphorus 4.9 mg/dl (2.5-4.5) H 06/17/18 18:30 Magnesium 2.1 MG/DL (1.6-2.3) 06/17/18 18:30 Total Bilirubin 0.5 mg/dl (0.2-1.3) 06/20/18 05:38 AST 16 U/L (17-59) L D 06/20/18 05:38 ALT 24 U/L (21-72) 06/20/18 05:38 Alkaline Phosphatase 37 U/L (38-126) L D 06/20/18 05:38 Troponin I 0.0700 ng/mL (0.00-0.120) 06/18/18 09:30 NT-Pro-B Natriuret Pep 51.0 pg/ml (0-900) 06/17/18 18:30 Total Protein 6.2 G/DL (6.3-8.2) L 06/20/18 05:38 Albumin 3.6 g/dL (3.5-5.0) 06/20/18 05:38 Globulin 2.6 gm/dL (2.2-3.9) 06/20/18 05:38 Albumin/Globulin Ratio 1.4 (1.0-2.1) 06/20/18 05:38 Arterial Blood Potassium 4.6 mmol/L (3.6-5.2) 06/17/18 20:06 Urine Color Straw (YELLOW) 06/17/18 19:14 Urine Clarity Clear (Clear) 06/17/18 19:14 Urine pH 6.0 (5.0-8.0) 06/17/18 19:14 Ur Specific [place] 1.024 (1.003-1.030) 06/17/18 19:14 Urine Protein 30 mg/dL (NEGATIVE) 06/17/18 19:14 Urine Glucose (UA) >=500 mg/dL (NEGATIVE) 06/17/18 19:14 Urine Ketones Negative mg/dL (NEGATIVE) 06/17/18 19:14 Urine Blood Negative (NEGATIVE) 06/17/18 19:14 Urine Nitrate Negative (NEGATIVE) 06/17/18 19:14 Urine Bilirubin Negative (NEGATIVE) 06/17/18 19:14 Urine Urobilinogen 0.2-1.0 mg/dL (0.2-1.0) 06/17/18 19:14 Ur Leukocyte Esterase Neg [place]/uL (Negative) 06/17/18 19:14 Urine RBC (Auto) < 1 /hpf (0-3) 06/17/18 19:14 Urine Microscopic WBC < 1 /hpf (0-5) 06/17/18 19:14 Ur Squamous Epith Cells < 1 /hpf (0-5) 06/17/18 19:14 - Hospital Course Hospital Course: 63 years old male with hx of IDDM, HTN and CVA with residual right side weakness, aphasia and difficulty in swallowing. He was brought to the ED after an episode of acute unset of respiratory distress and choking while eating. The EMS found him desaturating to the 80s and he was placed on oxygen. In the ED he was intubated and placed on MV. Patient was admitted in ICU. Patient condition improved and was extubated the next day. Pulmonology was consulted. Chest CT: Foci of airspace consolidation at the posterior of the bilateral lower lobes and right upper lobe likely represent aspiration. Moderately dilated esophagus contains fluid and air-fluid level. Head CT negative for acute intracranial changes. Patient was started on IV abx for aspiration pneumonia, and also solumedrol and duonebs for COPD exacerbation. Sputum cx grows Gram negative mateo. Blood and urine cx neg. Patient stable to be discharged to TCU to complete 5 more days of IV abx and do PT/OT. Discharge Exam - Additional Findings Additional findings: see physical exam from today's progress note Discharge Plan - Follow Up Plan Condition: CRITICAL Disposition: REHAB FACILITY/REHAB UNIT Additional Instructions: Discharge pt to TCU Referrals: FAMILY PROVIDER,NO [Primary Care Provider] -
[2018-06-21] MEDS: Insulin Detemir 100 Units/ml Inj SC SCH (21:00)
[2018-06-21 23:17] VITALS: BP 121/57; PULSE 82; RESP 16; TEMP 98.7; O2SAT 96
--- NOTE | 2018-06-25 08:19 | PQF ---
PROVIDER RESPONSE TEXT: Provider was unable to determine a response for this query. REVIEWER QUERY TEXT: Rule Out Sepsis Clarification Sepsis is documented in the Medical Record x 1 in the progress note of 06/18/18 by the [employer] Officer. A FTER workup please clarify whether: -- Patient has sepsis - Please document confirmed, suspected or probable causative organism - Please document confirmed, suspected or probable localized infection - Please clarify if sepsis is related to a device - Please clarify if sepsis was present on admission -- Sepsis was ruled out (include corresponding diagnosis for patient?s clinical picture and treatment ) -- Patient had sepsis which is resolved -- Other, please specify The patient's Clinical Indicators include: He was brought to the ER after an episode of acute unset of respiratory distress and choking while ea ting. EMS found him desaturating to the 80s and he was placed on oxygen. In the ED he was intubated . PMH includes: CVA with right side weakness, Motor Aphasia and Swallowing problems . WBC 16.4 , lactate 2.3, Blood CS No growth [address] Chest: Foci of airspace consolidation at the posterior dependent portion of the bilateral lower lo bes and right upper lobe likely represent aspiration. Differential consideration includes less likely multifocal pneumonia. Moderately dilated esophagus contains fluid and air-fluid level. The differential consideration inclu namita gastroesophageal reflux versus stenosis or neoplasm in the distal esophagus. TEMP: 98.3, 98.3, 98.6, 99 HR 101, 84, 94, 81, 84, 82 BP 110/68, 148/92, 110/72, 111/70 R 28, 28, 18, 18 Query created by: Margaret Pinto on 06/21/2018 8:53 AM Electronically signed by: Yudelka Luna 06/25/2018 8:16 AM
== END 2018-06-21 23:00 | DRG 208 ==
LOC: SUPCPDRO 18:17 → EDBD 18:17 → H.ER 18:17 → H.ERHOLD 19:53 → H.ICU/CCU 06-18 00:22
PROVIDERS: ADMIT Internal Medicine; ATTEND Internal Medicine
PROC: 5A1935Z Respiratory Ventilation, Less than 24 Consecutive Hours (ICD-10-PCS; principal; 2018-06-17)
PROC: 0BH17EZ Insertion of Endotracheal Airway into Trachea, Via Natural or Artificial Opening (ICD-10-PCS; 2018-06-17)
PROC: 3E0F7GC Introduction of Other Therapeutic Substance into Respiratory Tract, Via Natural or Artificial Opening (ICD-10-PCS; 2018-06-19)
DX: J96.01 Acute respiratory failure with hypoxia (principal); J69.0 Pneumonitis due to inhalation of food and vomit; J44.1 Chronic obstructive pulmonary disease with (acute) exacerbation; I69.351 Hemiplegia and hemiparesis following cerebral infarction affecting right dominant side; J96.02 Acute respiratory failure with hypercapnia; E11.65 Type 2 diabetes mellitus with hyperglycemia; E86.0 Dehydration; I10 Essential (primary) hypertension; I69.320 Aphasia following cerebral infarction; I69.391 Dysphagia following cerebral infarction; R13.10 Dysphagia, unspecified; E87.6 Hypokalemia; K22.8 Other specified diseases of esophagus; F41.8 Other specified anxiety disorders; Z87.01 Personal history of pneumonia (recurrent); Z87.891 Personal history of nicotine dependence; Z79.4 Long term (current) use of insulin; Z79.84 Long term (current) use of oral hypoglycemic drugs; Z91.041 Radiographic dye allergy status; Z91.013 Allergy to seafood

== ENCOUNTER 2018-06-21 21:24 | Inpatient (IN) | payer OTHER, MEDICAID ==
[2018-06-21 22:56] VITALS: BMI 28.6
[2018-06-21 23:44] VITALS: RESP 20
[2018-06-22] MEDS ORDERED: Albuterol 0.083% Inhal Sol (2.5 mg/3 mL) UD INH PRN (00:11)
[2018-06-22] MEDS ORDERED: Piperacillin/Tazobact 3.375 gm Inj IVPB SCH (04:00)
[2018-06-22] MEDS: Piperacillin/Tazobact 3.375 GM in Sodium Chloride 0.9% 100 ML IVPB SCH ×4 (04:41→22:14)
[2018-06-22] MEDS: Insulin Lispro (humaLOG) 100 Units/ml Inj SC SCH ×4 (06:43→22:09)
--- NOTE | 2018-06-22 06:50 | CP.PCM.HP ---
<Yudelka Luna - Last Filed: 06/22/18 10:34> History of Present Illness - History of Present Illness History of Present Illness: 63 years old male with hx of IDDM, HTN and CVA with residual right side weakness, aphasia and difficulty in swallowing was initially admitted to ICU after an episode of acute unset of respiratory distress and choking while eating. In the ED he was intubated and placed on MV. Pulmonology was consulted. Patient condition improved and was extubated the next day. Chest CT showed foci of airspace consolidation at the posterior of the bilateral lower lobes and rig ht upper lobe likely consistent with aspiration. Moderately dilated esophagus contains fluid and air-fluid level. Head CT negative for acute intracranial changes. Patient was started on IV abx for aspiration pneumonia, and also solumedrol and duonebs for COPD exacerbation. Sputum cx grows Gram negative gt. Blood and urine cx neg. Patient now admitted to TCU to complete 5 more days of IV abx and do PT/OT. 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 Present on Admission - Present on Admission Any Indicators Present on Admission: No Review of Systems - Review of Systems All systems: reviewed and no additional remarkable complaints except (HPI) Past Patient History - Infectious Disease Hx of Infectious Diseases: None - Past Medical History & Family History Past Medical History?: Yes - Past Social History Smoking Status: Former Smoker - CARDIAC Hx Cardiac Disorders: Yes Hx Hypertension: Yes - PULMONARY Hx Respiratory Disorders: Yes Hx Bronchitis: Yes Hx Pneumonia: Yes - NEUROLOGICAL Hx Neurological Disorder: Yes HX Cerebrovascular Accident: Yes (With right side weakness, motor aphasia and dysphagia?) - HEENT Hx HEENT Problems: No - RENAL Hx Chronic Kidney Disease: No - ENDOCRINE/METABOLIC Hx Endocrine Disorders: Yes Hx Diabetes Mellitus Type 2: Yes - HEMATOLOGICAL/ONCOLOGICAL Hx Blood Disorders: No - INTEGUMENTARY Hx Dermatological Problems: No - MUSCULOSKELETAL/RHEUMATOLOGICAL Hx Musculoskeletal Disorders: Yes Hx Falls: No Hx Unsteady Gait: Yes - GASTROINTESTINAL Hx Gastrointestinal Disorders: No - GENITOURINARY/GYNECOLOGICAL Hx Genitourinary Disorders: Yes Hx Incontinence: Yes - PSYCHIATRIC Hx Substance Use: No - SURGICAL HISTORY Hx Surgeries: No - ANESTHESIA Hx Anesthesia: No Meds Allergies/Adverse Reactions: Allergies Allergy/AdvReac Type Severity Reaction Status Date / Time iodine Allergy SWELLING Verified 06/18/18 10:38 shellfish derived Allergy SWELLING Verified 06/18/18 10:38 Physical Exam - Constitutional Appears: No Acute Distress - Respiratory Exam Respiratory Exam: Clear to Auscultation Bilateral, NORMAL BREATHING PATTERN - Cardiovascular Exam Cardiovascular Exam: REGULAR RHYTHM, +S1, +S2 - GI/Abdominal Exam GI & Abdominal Exam: Normal Bowel Sounds, Soft. absent: Distended, Tenderness - Extremities Exam Extremities exam: Negative for: calf tenderness, pedal edema - Neurological Exam Neurological exam: Alert, Oriented x3 - Skin Skin Exam: Dry, Warm Results - Vital Signs Recent Vital Signs: Last Vital Signs Temp 98.2 F 06/21/18 23:01 Pulse 20 L 06/21/18 23:02 Resp 20 06/21/18 23:02 BP 138/74 06/21/18 23:01 Pulse Ox 96 06/21/18 23:02 - Labs Result Diagrams: 06/22/18 08:05 06/22/18 08:05 Labs: Laboratory Results - last 24 hr 06/22/18 05:57 POC Glucose (mg/dL) 168 H Assessment & Plan - Assessment and Plan (Free Text) Assessment: 63 years old male with hx of IDDM, HTN and CVA with residual right side weakness, aphasia and difficulty in swallowing was initially admitted to ICU after an episode of acute unset of respiratory distress and choking while eating. In the ED he was intubated and placed on MV. Pulmonology was consulted. Patient condition improved and was extubated the next day. Chest CT showed foci of airspace consolidation at the posterior of the bilateral lower lobes and right upper lobe likely consistent with aspiration. Moderately dilated esophagus contains fluid and air-fluid level. Head CT negative for acute intracranial changes. Patient was started on IV abx for aspiration pneumonia, and also jamarcus umedrol and duonebs for COPD exacerbation. Sputum cx grows Gram negative gt. Blood and urine cx neg. Patient now admitted to TCU to complete 5 more days of IV abx and do PT/OT. Plan: Acute Respiratory distress, resolved Aspiration PNA - Pulmology Dr Pickens consulted, recs appreciated - sputum cx positive for Gram negative gt - c/ IV zocyn and Zythromax - blood and urine cx negative Hx of CVA with right sided weakness - PT/OT/ST - [place] Thickened , finely chopped diet DM II with Hyperglycemia - on steroids - Continue levemir and Novolog sliding scale - Increased levemir to 32 units daily DVT prophylaxis - lovenox Stroke status: full code Case discussed with Dr Luciano. Marcelina PGY 2 <Kiana Luciano - Last Filed: 06/22/18 15:41> Results - Vital Signs Recent Vital Signs: Last Vital Signs Temp 97.8 F 06/22/18 09:00 Pulse 69 06/22/18 09:15 Resp 20 06/22/18 09:00 BP 117/74 06/22/18 09:00 Pulse Ox 96 06/22/18 09:15 - Labs Result Diagrams: 06/22/18 08:05 06/22/18 08:05 Labs: Laboratory Results - last 24 hr 06/22/18 06/22/18 06/22/18 05:57 08:05 08:05 WBC 7.8 RBC 4.87 Hgb 13.9 Hct 40.0 MCV 82.3 MCH 28.6 MCHC 34.7 RDW 14.6 H Plt Count 215 MPV 7.7 Neut % (Auto) 67.4 Lymph % (Auto) 20.0 [place] % (Auto) 8.9 Eos % (Auto) 2.7 Baso % (Auto) 1.0 Neut # (Auto) 5.2 Lymph # (Auto) 1.6 [place] # (Auto) 0.7 Eos # (Auto) 0.2 Baso # (Auto) 0.1 Sodium 141 Potassium 3.4 L Chloride 105 Carbon Dioxide 26 Anion Gap 13 BUN 15 Creatinine 0.9 Est GFR ( Amer) > 60 Est GFR (Non-Af Amer) > 60 POC Glucose (mg/dL) 168 H Random Glucose 136 H Calcium 9.1 06/22/18 11:52 WBC RBC Hgb Hct MCV MCH MCHC RDW Plt Count MPV Neut % (Auto) Lymph % (Auto) [place] % (Auto) Eos % (Auto) Baso % (Auto) Neut # (Auto) Lymph # (Auto) [place] # (Auto) Eos # (Auto) Baso # (Auto) Sodium Potassium Chloride Carbon Dioxide Anion Gap BUN Creatinine Est GFR ( Amer) Est GFR (Non-Af Amer) POC Glucose (mg/dL) 230 H Random Glucose Calcium Attending/Attestation - Attestation I have personally seen and examined this patient.: Yes I have fully participated in the care of the patient.: Yes I have reviewed all pertinent clinical information: Yes Notes (Text): 06/22/18 15:41 agree with findings and plan as above.
[2018-06-22 08:54] LABS: BASO # 0.1 K/uL (0.0-0.2); EOS # 0.2 K/uL (0.0-0.7); EOS % 2.7 % (0.0-4.0); HEMOGLOBIN 13.9 g/dL (12.0-18.0); LYMPH # 1.6 K/uL (1.0-4.3); MEAN CELL VOLUME 82.3 fl (80.0-94.0); MEAN CORPUSCULAR HEMOGLOBIN 28.6 pg (27.0-31.0); MEAN CORPUSCULAR HGB CONC 34.7 g/dL (33.0-37.0); MEAN PLATELET VOLUME 7.7 fl (7.2-11.7); MONO # 0.7 K/uL (0.0-0.8); MONO % 8.9 % (0.0-10.0); NEUT # 5.2 K/uL (1.8-7.0); NEUT % 67.4 % (50.0-75.0); RBC 4.87 Mil/uL (4.40-5.90); RED CELL DISTRIBUTION WIDTH 14.6 % (11.5-14.5); WHITE BLOOD COUNT 7.8 K/uL (4.8-10.8)
[2018-06-22 09:05] LABS: BLOOD UREA NITROGEN 15 mg/dl (9-20); CALCIUM 9.1 mg/dL (8.4-10.2); GFR NON-AFRICAN AMERICAN > 60
[2018-06-22] MEDS: Enoxaparin 40 mg Syringe SC SCH (09:55)
[2018-06-22] MEDS: MethylPREDNISolone 40 mg Vial IVP SCH (09:55)
[2018-06-22] MEDS: Cholecalciferol 1,000 INTLU TAB PO SCH (09:56)
[2018-06-22] MEDS: Azithromycin 500 MG in Sodium Chloride 0.9% 250 ML IVPB SCH (09:57)
--- NOTE | 2018-06-22 13:25 | RAD ---
Date of service: 06/22/2018 HISTORY: Lab results COMPARISON: Frontal chest radiograph 06/18/2018. TECHNIQUE: 1 view obtained. FINDINGS: LUNGS: Endotracheal tube is not identified suggesting interval extubation. No acute infiltrate bilaterally. Limited linear atelectasis seen at the inferior lung zones medially bilaterally. PLEURA: No significant pleural effusion identified, no pneumothorax apparent. CARDIOVASCULAR: Calcific atherosclerotic changes are seen related to the thoracic aorta. Normal cardiac size. No pulmonary vascular congestion. OSSEOUS STRUCTURES: No significant abnormalities. VISUALIZED UPPER ABDOMEN: Normal. OTHER FINDINGS: None. IMPRESSION: No interval acute cardiopulmonary disease appreciated. Interval extubation suggested. Clinically correlate further.
--- NOTE | 2018-06-22 13:47 | CP.PCM.CON ---
History of Present Illness - History of Present Illness History of Present Illness: Continue Pulmonary consult 63 y/o M, PMHx L CVA 8 yrs ago with R sided weakness, HTN, DMII, PNA. Initially admitted to [facility] [place] on 06/17/18 due to acute respiratory, as per family, associated to sound with inspiration while was having soup, on evaluation in the ER, Pt was with partially airway obstruction with desaturation in the 80s, also found with PNA, COPD Exacerbation. Pt was immediately intubated upon arrival to ED and was transferred to ICU, and on 06/18/18 was extubated. On 06/21/18, Pt condition improved and was transfer to TCU for continue abx coverage and to benefit from PT/OT. Worsening symptoms: Mild CHRISTIAN. Aggravated factor: Exercise. Pt denied: fever, chills, n/v/d, abdominal pain, CP, palpitations, headache, cough. CXR: No acute infiltrate. Review of Systems - Constitutional Constitutional: Weakness - EENT Eyes: Other (negative) Ears: Other (negative) Nose/Mouth/Throat: Other (negative) - Cardiovascular Cardiovascular: Other (negative) - Respiratory Respiratory: Dyspnea on Exertion - Gastrointestinal Gastrointestinal: Other (negative) - Genitourinary Genitourinary: Urinary Incontinence - Musculoskeletal Musculoskeletal: Other (negative) - Integumentary Integumentary: Other (negative) - Neurological Neurological: Weakness - Psychiatric Psychiatric: Other (negative) - Endocrine Endocrine: Other (negative) - Hematologic/Lymphatic Hematologic: Other (negative) Past Patient History - Infectious Disease Hx of Infectious Diseases: None - Past Medical History & Family History Past Medical History?: Yes Pertinent Family History: Unknown - Past Social History Smoking Status: Former Smoker Alcohol: None Drugs: Denies Home Situation {Lives}: Alone - CARDIAC Hx Cardiac Disorders: Yes Hx Hypertension: Yes - PULMONARY Hx Respiratory Disorders: Yes Hx Bronchitis: Yes Hx Pneumonia: Yes - NEUROLOGICAL Hx Neurological Disorder: Yes HX Cerebrovascular Accident: Yes (With right side weakness, motor aphasia and dysphagia?) - HEENT Hx HEENT Problems: No - RENAL Hx Chronic Kidney Disease: No - ENDOCRINE/METABOLIC Hx Endocrine Disorders: Yes Hx Diabetes Mellitus Type 2: Yes - HEMATOLOGICAL/ONCOLOGICAL Hx Blood Disorders: No - INTEGUMENTARY Hx Dermatological Problems: No - MUSCULOSKELETAL/RHEUMATOLOGICAL Hx Musculoskeletal Disorders: Yes Hx Falls: No Hx Unsteady Gait: Yes - GASTROINTESTINAL Hx Gastrointestinal Disorders: No - GENITOURINARY/GYNECOLOGICAL Hx Genitourinary Disorders: Yes Hx Incontinence: Yes - PSYCHIATRIC Hx Substance Use: No - SURGICAL HISTORY Hx Surgeries: No - ANESTHESIA Hx Anesthesia: No Meds Allergies/Adverse Reactions: Allergies Allergy/AdvReac Type Severity Reaction Status Date / Time iodine Allergy SWELLING Verified 06/18/18 10:38 shellfish derived Allergy SWELLING Verified 06/18/18 10:38 - Medications Medications: Current Medications Albuterol Sulfate (Albuterol 0.083% Inhal Sandi (2.5 Mg/3 Ml) Ud) 2.5 mg INH RQ4 PRN PRN Reason: Shortness of Breath Alprazolam (Xanax) 0.25 mg PO DAILY [facility] Stop: 06/29/18 09:01 Last Admin: 06/22/18 10:03 Dose: 0.25 mg Aripiprazole (Abilify) 15 mg PO DAILY [facility] Last Admin: 06/22/18 09:56 Dose: 15 mg Cholecalciferol (Vitamin D) 2,000 intlu PO DAILY [facility] Last Admin: 06/22/18 09:56 Dose: 2,000 intlu Citalopram Hydrobromide (Celexa) 40 mg PO DAILY [facility] Last Admin: 06/22/18 09:56 Dose: 40 mg Dimethicone (Proshield Plus Skin Protectant) 1 applic TOP Q8 KEARA Enoxaparin Sodium (Lovenox) 40 mg SC DAILY [facility]; Protocol Last Admin: 06/22/18 09:55 Dose: 40 mg Fenofibrate (Tricor) 145 mg PO DAILY [facility] Last Admin: 06/22/18 09:56 Dose: 145 mg Azithromycin 500 mg/ Sodium (Chloride) 250 mls @ 250 mls/hr IVPB DAILY [facility] Last Admin: 06/22/18 09:57 Dose: 250 mls/hr Piperacillin Sod/Tazobactam (Sod 3.375 gm/ Sodium Chloride) 100 mls @ 100 mls/hr IVPB Q6 [facility] Last Admin: 06/22/18 10:03 Dose: 100 mls/hr Insulin Detemir (Levemir) 32 units SC HS KEARA Insulin Human Lispro (Humalog) 0 units SC ACHS [facility]; Protocol Last Admin: 06/22/18 12:43 Dose: 2 units Lactulose (Enulose) 20 gm PO DAILY PRN PRN Reason: Constipation Methylprednisolone (Solu-Medrol) 40 mg IVP DAILY KEARA Last Admin: 06/22/18 09:55 Dose: 40 mg Physical Exam - Constitutional Appears: No Acute Distress - Head Exam Head Exam: NORMAL INSPECTION - Eye Exam Eye Exam: PERRL - ENT Exam ENT Exam: Normal Exam - Neck Exam Neck exam: Positive for: Normal Inspection - Respiratory Exam Respiratory Exam: Decreased Breath Sounds (at bases) - Cardiovascular Exam Cardiovascular Exam: REGULAR RHYTHM - GI/Abdominal Exam GI & Abdominal Exam: Normal Bowel Sounds, Soft - Extremities Exam Extremities exam: Positive for: normal inspection - Back Exam Additional comments: R sacral redness - Neurological Exam Neurological exam: Alert, Oriented x3 Additional comments: Forgetful at times, R hemiparesia. - Psychiatric Exam Psychiatric exam: Normal Mood - Skin Skin Exam: Warm Results - Vital Signs Recent Vital Signs: Last Vital Signs Temp 97.8 F 06/22/18 09:00 Pulse 69 06/22/18 09:15 Resp 20 06/22/18 09:00 BP 117/74 06/22/18 09:00 Pulse Ox 96 06/22/18 09:15 reviewed Anjel - Labs Result Diagrams: 06/22/18 08:05 06/22/18 08:05 Labs: Laboratory Results - last 24 hr 06/22/18 06/22/18 06/22/18 05:57 08:05 08:05 WBC 7.8 RBC 4.87 Hgb 13.9 Hct 40.0 MCV 82.3 MCH 28.6 MCHC 34.7 RDW 14.6 H Plt Count 215 MPV 7.7 Neut % (Auto) 67.4 Lymph % (Auto) 20.0 [place] % (Auto) 8.9 Eos % (Auto) 2.7 Baso % (Auto) 1.0 Neut # (Auto) 5.2 Lymph # (Auto) 1.6 [place] # (Auto) 0.7 Eos # (Auto) 0.2 Baso # (Auto) 0.1 Sodium 141 Potassium 3.4 L Chloride 105 Carbon Dioxide 26 Anion Gap 13 BUN 15 Creatinine 0.9 Est GFR ( Amer) > 60 Est GFR (Non-Af Amer) > 60 POC Glucose (mg/dL) 168 H Random Glucose 136 H Calcium 9.1 06/22/18 11:52 WBC RBC Hgb Hct MCV MCH MCHC RDW Plt Count MPV Neut % (Auto) Lymph % (Auto) [place] % (Auto) Eos % (Auto) Baso % (Auto) Neut # (Auto) Lymph # (Auto) [place] # (Auto) Eos # (Auto) Baso # (Auto) Sodium Potassium Chloride Carbon Dioxide Anion Gap BUN Creatinine Est GFR ( Amer) Est GFR (Non-Af Amer) POC Glucose (mg/dL) 230 H Random Glucose Calcium reviewed J.P. Assessment & Plan (1) COPD exacerbation Status: Acute Priority: High (2) Aspiration pneumonia Status: Resolved - Assessment and Plan (Free Text) Plan: Continue Zithromax and Zosyn to complete 5 days of Tx. - Date & Time Date: 06/22/18
[2018-06-22] MEDS ORDERED: Ciprofloxacin 400mg/200ml D5W 400 MG/200 ML BAG IVPB SCH (17:00)
[2018-06-22] MEDS: Proshield Plus GEL TOP SCH (17:14)
[2018-06-22] MEDS: Insulin Detemir 100 Units/ml Inj SC SCH (22:10)
[2018-06-23] MEDS: Piperacillin/Tazobact 3.375 GM in Sodium Chloride 0.9% 100 ML IVPB SCH ×4 (04:27→21:50)
[2018-06-23] MEDS: Proshield Plus GEL TOP SCH ×3 (04:28→16:20)
[2018-06-23] MEDS: Insulin Lispro (humaLOG) 100 Units/ml Inj SC SCH ×4 (06:42→22:15)
[2018-06-23] MEDS: Enoxaparin 40 mg Syringe SC SCH (09:13)
[2018-06-23] MEDS: Cholecalciferol 1,000 INTLU TAB PO SCH (09:14)
[2018-06-23] MEDS: MethylPREDNISolone 40 mg Vial IVP SCH (09:14)
[2018-06-23] MEDS: Azithromycin 500 MG in Sodium Chloride 0.9% 250 ML IVPB SCH (09:15)
--- NOTE | 2018-06-23 16:33 | CP.PCM.PN ---
Subjective - Date & Time of Evaluation Date of Evaluation: 06/23/18 Time of Evaluation: 15:15 - Subjective Subjective: F/U PNA/ COPD . Pt awake, no A/D,smiling. Objective - Vital Signs/Intake and Output Vital Signs (last 24 hours): Temp Pulse Resp BP Pulse Ox 98.0 F 61 20 118/60 96 06/23/18 09:01 06/23/18 09:01 06/23/18 09:01 06/23/18 09:01 06/23/18 09:01 - Medications Medications: Current Medications Albuterol Sulfate (Albuterol 0.083% Inhal Sandi (2.5 Mg/3 Ml) Ud) 2.5 mg INH RQ4 PRN PRN Reason: Shortness of Breath Alprazolam (Xanax) 0.25 mg PO DAILY [facility] Stop: 06/29/18 09:01 Last Admin: 06/23/18 09:13 Dose: 0.25 mg Aripiprazole (Abilify) 15 mg PO DAILY [facility] Last Admin: 06/23/18 09:14 Dose: 15 mg Cholecalciferol (Vitamin D) 2,000 intlu PO DAILY [facility] Last Admin: 06/23/18 09:14 Dose: 2,000 intlu Citalopram Hydrobromide (Celexa) 40 mg PO DAILY [facility] Last Admin: 06/23/18 09:15 Dose: 40 mg Dimethicone (Proshield Plus Skin Protectant) 1 applic TOP Q8 [facility] Last Admin: 06/23/18 16:20 Dose: 1 applic Enoxaparin Sodium (Lovenox) 40 mg SC DAILY [facility]; Protocol Last Admin: 06/23/18 09:13 Dose: 40 mg Fenofibrate (Tricor) 145 mg PO DAILY [facility] Last Admin: 06/23/18 09:15 Dose: 145 mg Azithromycin 500 mg/ Sodium (Chloride) 250 mls @ 250 mls/hr IVPB DAILY [facility] Last Admin: 06/23/18 09:15 Dose: 250 mls/hr Piperacillin Sod/Tazobactam (Sod 3.375 gm/ Sodium Chloride) 100 mls @ 100 mls/hr IVPB Q6 [facility] Last Admin: 06/23/18 16:20 Dose: 100 mls/hr Insulin Detemir (Levemir) 32 units SC HS [facility] Last Admin: 06/22/18 22:10 Dose: 32 u Insulin Human Lispro (Humalog) 0 units SC ACHS [facility]; Protocol Last Admin: 06/23/18 06:42 Dose: 1 units Lactulose (Enulose) 20 gm PO DAILY PRN PRN Reason: Constipation Last Admin: 06/23/18 16:24 Dose: 20 gm Methylprednisolone (Solu-Medrol) 40 mg IVP DAILY [facility] Last Admin: 06/23/18 09:14 Dose: 40 mg - Labs Labs: 06/22/18 08:05 06/22/18 08:05 - Constitutional Appears: No Acute Distress - Head Exam Head Exam: NORMAL INSPECTION - Eye Exam Eye Exam: PERRL - ENT Exam ENT Exam: Normal Exam - Neck Exam Neck Exam: Normal Inspection - Respiratory Exam Respiratory Exam: Decreased Breath Sounds (at bases) - Cardiovascular Exam Cardiovascular Exam: REGULAR RHYTHM - GI/Abdominal Exam GI & Abdominal Exam: Soft, Normal Bowel Sounds - Extremities Exam Extremities Exam: Normal Inspection - Back Exam Additional comments: R sacral redness - Neurological Exam Neurological Exam: Alert, Oriented x3 Additional comments: Forgetful at times, R hemiparesia - Psychiatric Exam Psychiatric exam: Normal Mood - Skin Skin Exam: Warm Assessment and Plan (1) COPD exacerbation Status: Acute (2) Aspiration pneumonia Status: Resolved - Assessment and Plan (Free Text) Plan: Continue Zithromax, Zosyn, Solu-Medrol and rest of Tx.
[2018-06-23] MEDS: Insulin Detemir 100 Units/ml Inj SC SCH (21:51)
[2018-06-24] MEDS: Proshield Plus GEL TOP SCH ×3 (01:20→16:28)
[2018-06-24] MEDS: Piperacillin/Tazobact 3.375 GM in Sodium Chloride 0.9% 100 ML IVPB SCH ×4 (05:25→22:04)
[2018-06-24] MEDS: Insulin Lispro (humaLOG) 100 Units/ml Inj SC SCH ×4 (08:30→22:03)
[2018-06-24] MEDS: Cholecalciferol 1,000 INTLU TAB PO SCH (09:06)
[2018-06-24] MEDS: MethylPREDNISolone 40 mg Vial IVP SCH (09:06)
[2018-06-24] MEDS: Enoxaparin 40 mg Syringe SC SCH (09:06)
[2018-06-24] MEDS: Azithromycin 500 MG in Sodium Chloride 0.9% 250 ML IVPB SCH (10:29)
--- NOTE | 2018-06-24 16:15 | CP.PCM.PN ---
Subjective - Date & Time of Evaluation Date of Evaluation: 06/24/18 Time of Evaluation: 11:20 - Subjective Subjective: F/U PNA/COPD Pt awake, no A/D, follows commands. Objective - Vital Signs/Intake and Output Vital Signs (last 24 hours): Temp Pulse Resp BP Pulse Ox 97.3 F L 62 20 130/67 95 06/24/18 08:49 06/24/18 08:49 06/24/18 08:49 06/24/18 08:49 06/24/18 08:49 - Medications Medications: Current Medications Albuterol Sulfate (Albuterol 0.083% Inhal Sandi (2.5 Mg/3 Ml) Ud) 2.5 mg INH RQ4 PRN PRN Reason: Shortness of Breath Alprazolam (Xanax) 0.25 mg PO DAILY [facility] Stop: 06/29/18 09:01 Last Admin: 06/24/18 09:08 Dose: 0.25 mg Aripiprazole (Abilify) 15 mg PO DAILY [facility] Last Admin: 06/24/18 09:05 Dose: 15 mg Cholecalciferol (Vitamin D) 2,000 intlu PO DAILY [facility] Last Admin: 06/24/18 09:06 Dose: 2,000 intlu Citalopram Hydrobromide (Celexa) 40 mg PO DAILY [facility] Last Admin: 06/24/18 09:06 Dose: 40 mg Dimethicone (Proshield Plus Skin Protectant) 1 applic TOP Q8 [facility] Last Admin: 06/24/18 09:06 Dose: 1 applic Enoxaparin Sodium (Lovenox) 40 mg SC DAILY [facility]; Protocol Last Admin: 06/24/18 09:06 Dose: 40 mg Fenofibrate (Tricor) 145 mg PO DAILY [facility] Last Admin: 06/24/18 09:06 Dose: 145 mg Azithromycin 500 mg/ Sodium (Chloride) 250 mls @ 250 mls/hr IVPB DAILY [facility] Last Admin: 06/24/18 10:29 Dose: 250 mls/hr Piperacillin Sod/Tazobactam (Sod 3.375 gm/ Sodium Chloride) 100 mls @ 100 mls/hr IVPB Q6 [facility] Last Admin: 06/24/18 09:07 Dose: 100 mls/hr Insulin Detemir (Levemir) 32 units SC HS [facility] Last Admin: 06/23/18 21:51 Dose: 32 u Insulin Human Lispro (Humalog) 0 units SC ACHS [facility]; Protocol Last Admin: 06/24/18 12:22 Dose: 2 units Lactulose (Enulose) 20 gm PO DAILY PRN PRN Reason: Constipation Last Admin: 06/23/18 16:24 Dose: 20 gm Methylprednisolone (Solu-Medrol) 40 mg IVP DAILY [facility] Last Admin: 06/24/18 09:06 Dose: 40 mg - Labs Labs: 06/22/18 08:05 06/22/18 08:05 - Constitutional Appears: No Acute Distress - Head Exam Head Exam: NORMAL INSPECTION - Eye Exam Eye Exam: PERRL - ENT Exam ENT Exam: Normal Exam - Neck Exam Neck Exam: Normal Inspection - Respiratory Exam Respiratory Exam: Decreased Breath Sounds (at bases) - Cardiovascular Exam Cardiovascular Exam: REGULAR RHYTHM - GI/Abdominal Exam GI & Abdominal Exam: Soft, Normal Bowel Sounds - Extremities Exam Extremities Exam: Normal Inspection - Back Exam Additional comments: Scral redness - Neurological Exam Neurological Exam: Awake Additional comments: Ox2, Forgetful, R hemiparesis - Psychiatric Exam Psychiatric exam: Normal Mood - Skin Skin Exam: Warm Assessment and Plan (1) COPD exacerbation Status: Acute (2) Aspiration pneumonia Status: Resolved - Assessment and Plan (Free Text) Plan: Continue Zithromax, Zosyn, Solu-Medrol and rest of tx.
[2018-06-24] MEDS: Insulin Detemir 100 Units/ml Inj SC SCH (22:02)
[2018-06-25] MEDS: Proshield Plus GEL TOP SCH ×3 (01:39→17:25)
[2018-06-25] MEDS: Piperacillin/Tazobact 3.375 GM in Sodium Chloride 0.9% 100 ML IVPB SCH ×4 (04:31→22:51)
[2018-06-25] MEDS: Insulin Lispro (humaLOG) 100 Units/ml Inj SC SCH ×4 (06:35→22:46)
[2018-06-25] MEDS: Enoxaparin 40 mg Syringe SC SCH (08:44)
[2018-06-25] MEDS: MethylPREDNISolone 40 mg Vial IVP SCH (08:45)
[2018-06-25] MEDS: Cholecalciferol 1,000 INTLU TAB PO SCH (08:46)
[2018-06-25] MEDS: Azithromycin 500 MG in Sodium Chloride 0.9% 250 ML IVPB SCH (10:35)
--- NOTE | 2018-06-25 14:45 | CP.PCM.PN ---
Subjective - Date & Time of Evaluation Date of Evaluation: 06/25/18 Time of Evaluation: 09:50 - Subjective Subjective: No A/D, N/C. Objective - Vital Signs/Intake and Output Vital Signs (last 24 hours): Temp Pulse Resp BP Pulse Ox 98.7 F 58 L 20 126/67 97 06/25/18 08:15 06/25/18 08:15 06/25/18 08:15 06/25/18 08:15 06/25/18 08:15 - Medications Medications: Current Medications Albuterol Sulfate (Albuterol 0.083% Inhal Sandi (2.5 Mg/3 Ml) Ud) 2.5 mg INH RQ4 PRN PRN Reason: Shortness of Breath Alprazolam (Xanax) 0.25 mg PO DAILY [facility] Stop: 06/29/18 09:01 Last Admin: 06/25/18 08:46 Dose: 0.25 mg Aripiprazole (Abilify) 15 mg PO DAILY [facility] Last Admin: 06/25/18 08:44 Dose: 15 mg Cholecalciferol (Vitamin D) 2,000 intlu PO DAILY [facility] Last Admin: 06/25/18 08:46 Dose: 2,000 intlu Citalopram Hydrobromide (Celexa) 40 mg PO DAILY [facility] Last Admin: 06/25/18 08:44 Dose: 40 mg Dimethicone (Proshield Plus Skin Protectant) 1 applic TOP Q8 [facility] Last Admin: 06/25/18 08:45 Dose: 1 applic Enoxaparin Sodium (Lovenox) 40 mg SC DAILY [facility]; Protocol Last Admin: 06/25/18 08:44 Dose: 40 mg Fenofibrate (Tricor) 145 mg PO DAILY [facility] Last Admin: 06/25/18 08:45 Dose: 145 mg Azithromycin 500 mg/ Sodium (Chloride) 250 mls @ 250 mls/hr IVPB DAILY [facility] Last Admin: 06/25/18 10:35 Dose: 250 mls/hr Piperacillin Sod/Tazobactam (Sod 3.375 gm/ Sodium Chloride) 100 mls @ 100 mls/hr IVPB Q6 [facility] Last Admin: 06/25/18 09:04 Dose: 100 mls/hr Insulin Detemir (Levemir) 32 units SC HS [facility] Last Admin: 06/24/18 22:02 Dose: 32 u Insulin Human Lispro (Humalog) 0 units SC ACHS [facility]; Protocol Last Admin: 06/25/18 12:37 Dose: 2 units Lactulose (Enulose) 20 gm PO DAILY PRN PRN Reason: Constipation Last Admin: 06/23/18 16:24 Dose: 20 gm Methylprednisolone (Solu-Medrol) 40 mg IVP DAILY [facility] Last Admin: 06/25/18 08:45 Dose: 40 mg - Labs Labs: 06/22/18 08:05 06/22/18 08:05 Assessment and Plan (1) COPD exacerbation Status: Acute (2) Aspiration pneumonia Status: Resolved - Assessment and Plan (Free Text) Plan: Continue Zithromax, Solu-Medrol, Celexa, Xanax and rest of Tx. F/U CXR today.
--- NOTE | 2018-06-25 18:32 | RAD ---
Date of service: 06/25/2018 HISTORY: f/u Dx: aspiration pneumonia COMPARISON: 06/22/2018 TECHNIQUE: Chest PA and lateral views FINDINGS: LUNGS: No active pulmonary disease. PLEURA: No significant pleural effusion identified. No pneumothorax apparent. CARDIOVASCULAR: No aortic atherosclerotic calcification present. Normal cardiac size. No pulmonary vascular congestion. OSSEOUS STRUCTURES: No significant abnormalities. VISUALIZED UPPER ABDOMEN: Normal. OTHER FINDINGS: None. IMPRESSION: No active disease. No significant interval change compared to the prior examination(s).
[2018-06-25] MEDS: Insulin Detemir 100 Units/ml Inj SC SCH (22:47)
[2018-06-26] MEDS: Proshield Plus GEL TOP SCH ×3 (01:53→16:53)
[2018-06-26] MEDS: Piperacillin/Tazobact 3.375 GM in Sodium Chloride 0.9% 100 ML IVPB SCH ×2 (04:35→09:06)
[2018-06-26] MEDS: Insulin Lispro (humaLOG) 100 Units/ml Inj SC SCH ×4 (06:44→21:24)
[2018-06-26] MEDS: Azithromycin 500 MG in Sodium Chloride 0.9% 250 ML IVPB SCH (08:47)
[2018-06-26] MEDS: Enoxaparin 40 mg Syringe SC SCH (08:47)
[2018-06-26] MEDS: MethylPREDNISolone 40 mg Vial IVP SCH (08:49)
[2018-06-26] MEDS: Cholecalciferol 1,000 INTLU TAB PO SCH (08:50)
--- NOTE | 2018-06-26 15:46 | CP.PCM.PN ---
Subjective - Date & Time of Evaluation Date of Evaluation: 06/26/18 Time of Evaluation: 09:15 - Subjective Subjective: F/U COPD/ S/P PNA Awake, no A/D. Objective - Vital Signs/Intake and Output Vital Signs (last 24 hours): Temp Pulse Resp BP Pulse Ox 97.5 F L 63 20 119/69 97 06/26/18 08:21 06/26/18 08:21 06/26/18 08:21 06/26/18 08:21 06/26/18 08:21 - Medications Medications: Current Medications Albuterol Sulfate (Albuterol 0.083% Inhal Sandi (2.5 Mg/3 Ml) Ud) 2.5 mg INH RQ4 PRN PRN Reason: Shortness of Breath Alprazolam (Xanax) 0.25 mg PO DAILY [facility] Stop: 06/29/18 09:01 Last Admin: 06/26/18 08:49 Dose: 0.25 mg Aripiprazole (Abilify) 15 mg PO DAILY [facility] Last Admin: 06/26/18 08:48 Dose: 15 mg Cholecalciferol (Vitamin D) 2,000 intlu PO DAILY [facility] Last Admin: 06/26/18 08:50 Dose: 2,000 intlu Ciprofloxacin (Cipro) 500 mg PO Q12 [facility]; Protocol Citalopram Hydrobromide (Celexa) 40 mg PO DAILY [facility] Last Admin: 06/26/18 08:49 Dose: 40 mg Dimethicone (Proshield Plus Skin Protectant) 1 applic TOP Q8 [facility] Last Admin: 06/26/18 08:48 Dose: 1 applic Enoxaparin Sodium (Lovenox) 40 mg SC DAILY [facility]; Protocol Last Admin: 06/26/18 08:47 Dose: 40 mg Fenofibrate (Tricor) 145 mg PO DAILY [facility] Last Admin: 06/25/18 08:45 Dose: 145 mg Insulin Detemir (Levemir) 32 units SC HS [facility] Last Admin: 06/25/18 22:47 Dose: 32 u Insulin Human Lispro (Humalog) 0 units SC ACHS [facility]; Protocol Last Admin: 06/26/18 06:44 Dose: 1 units Lactulose (Enulose) 20 gm PO DAILY PRN PRN Reason: Constipation Last Admin: 06/23/18 16:24 Dose: 20 gm Prednisone (Prednisone Tab) 30 mg PO DAILY [facility] - Labs Labs: 06/22/18 08:05 06/22/18 08:05 - Constitutional Appears: No Acute Distress - Head Exam Head Exam: NORMAL INSPECTION - Eye Exam Eye Exam: PERRL - ENT Exam ENT Exam: Normal Exam - Neck Exam Neck Exam: Normal Inspection - Respiratory Exam Respiratory Exam: Decreased Breath Sounds (at bases) - Cardiovascular Exam Cardiovascular Exam: REGULAR RHYTHM - GI/Abdominal Exam GI & Abdominal Exam: Soft, Normal Bowel Sounds - Extremities Exam Extremities Exam: Normal Inspection - Back Exam Back Exam: NORMAL INSPECTION - Neurological Exam Neurological Exam: Alert Additional comments: Ox2, forgetful, follows commands. R Hemiparesis. - Psychiatric Exam Psychiatric exam: Normal Mood - Skin Skin Exam: Warm Assessment and Plan (1) COPD exacerbation Status: Acute (2) Aspiration pneumonia Status: Resolved - Assessment and Plan (Free Text) Plan: CXR= negative, last day of abx IV today, repeat sputum C-S in AM, begin tomorrow Cipro po.
--- NOTE | 2018-06-26 16:17 | CP.PCM.PN ---
Subjective - Date & Time of Evaluation Date of Evaluation: 06/26/18 Time of Evaluation: 14:45 - Subjective Subjective: Patient seen and examined. Non-verbal but was able to communicate with gestures. Admitted feeling fine. Objective - Vital Signs/Intake and Output Vital Signs (last 24 hours): Temp Pulse Resp BP Pulse Ox 97.5 F L 63 20 119/69 97 06/26/18 08:21 06/26/18 08:21 06/26/18 08:21 06/26/18 08:21 06/26/18 08:21 - Medications Medications: Current Medications Albuterol Sulfate (Albuterol 0.083% Inhal Sandi (2.5 Mg/3 Ml) Ud) 2.5 mg INH RQ4 PRN PRN Reason: Shortness of Breath Alprazolam (Xanax) 0.25 mg PO DAILY [facility] Stop: 06/29/18 09:01 Last Admin: 06/26/18 08:49 Dose: 0.25 mg Aripiprazole (Abilify) 15 mg PO DAILY [facility] Last Admin: 06/26/18 08:48 Dose: 15 mg Cholecalciferol (Vitamin D) 2,000 intlu PO DAILY [facility] Last Admin: 06/26/18 08:50 Dose: 2,000 intlu Ciprofloxacin (Cipro) 500 mg PO Q12 [facility]; Protocol Citalopram Hydrobromide (Celexa) 40 mg PO DAILY [facility] Last Admin: 06/26/18 08:49 Dose: 40 mg Dimethicone (Proshield Plus Skin Protectant) 1 applic TOP Q8 [facility] Last Admin: 06/26/18 08:48 Dose: 1 applic Enoxaparin Sodium (Lovenox) 40 mg SC DAILY [facility]; Protocol Last Admin: 06/26/18 08:47 Dose: 40 mg Fenofibrate (Tricor) 145 mg PO DAILY [facility] Last Admin: 06/25/18 08:45 Dose: 145 mg Insulin Detemir (Levemir) 32 units SC HS [facility] Last Admin: 06/25/18 22:47 Dose: 32 u Insulin Human Lispro (Humalog) 0 units SC ACHS [facility]; Protocol Last Admin: 06/26/18 06:44 Dose: 1 units Lactulose (Enulose) 20 gm PO DAILY PRN PRN Reason: Constipation Last Admin: 06/23/18 16:24 Dose: 20 gm Prednisone (Prednisone Tab) 30 mg PO DAILY [facility] - Labs Labs: 06/22/18 08:05 06/22/18 08:05 - Constitutional Appears: No Acute Distress - Head Exam Head Exam: ATRAUMATIC - Eye Exam Eye Exam: absent: Scleral icterus - ENT Exam ENT Exam: Mucous Membranes Moist - Neck Exam Neck Exam: absent: Meningismus - Respiratory Exam Respiratory Exam: absent: Rales, Rhonchi, Wheezes, Respiratory Distress - Cardiovascular Exam Cardiovascular Exam: REGULAR RHYTHM, +S1, +S2 - GI/Abdominal Exam GI & Abdominal Exam: Soft. absent: Tenderness - Rectal Exam Rectal Exam: Deferred - Neurological Exam Neurological Exam: Alert, Oriented x3 - Psychiatric Exam Psychiatric exam: Normal Affect - Skin Skin Exam: Dry, Intact Assessment and Plan - Assessment and Plan (Free Text) Assessment: 63 yo male with history of DM2, HTN and CVA with residual right sided weakness, aphasia and difficulty swallowing admitted because of choking while eating. Patient went in to respiratory distress and was intubated. Chest CT showed bilateral lower lobes and right upper lobe infiltrates. Patient was started on IV antibiotics and was extubated. Sputum culture grew ESBL Klebsiella pneumonia. Patient was transferred to TCU for continuation of IV antibiotics and further management of respiratory symptoms. 1. Aspiration PNA completed 8 days of IV Zithromax and Zosyn on PO Cipro 500mg q 12hrs sputum was positive for ESBL Klebsiella pneumonia steroid switched to PO Prednisone 30mg PO q am Dr Pickens on pulmonalogy consult 2. History of CVA continue PT/OT/ST continue nectar thickened, finely chopped diet 3. DM II with Hyperglycemia BS uncontrolled probably secondary to steroid Continue Levemir 32 units SC HS and Lispro on sliding scale 4. DVT prophylaxis on Lovenox
[2018-06-26] MEDS: Insulin Detemir 100 Units/ml Inj SC SCH (21:25)
[2018-06-27] MEDS: Proshield Plus GEL TOP SCH ×3 (01:21→16:37)
[2018-06-27] MEDS ORDERED: Sodium Chloride 3% for Inhalation 4 ML VIAL.NEB IH PRN (06:00)
[2018-06-27] MEDS: Enoxaparin 40 mg Syringe SC SCH (08:31)
[2018-06-27] MEDS: Cholecalciferol 1,000 INTLU TAB PO SCH (08:32)
[2018-06-27] MEDS: Insulin Lispro (humaLOG) 100 Units/ml Inj SC SCH ×4 (08:33→21:31)
--- NOTE | 2018-06-27 09:31 | CP.PCM.CON ---
History of Present Illness - History of Present Illness History of Present Illness: Infectious Disease Consultation Note- Asked to see this patietn at the request of hospitalist For ESBL K.Pneumonia in sputum cx . HPI- History obtained mostly from the medical chart and the hospitalist as pt. 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 Patient went in to respiratory distress and was intubated. Chest CT at that time showed bilateral lower lobes and right upper lobe infiltrates. Patient was started on IV antibiotics ( zosyn and zithormax as per the pulm and admitting team) and was extubated and was clinically improved and Patient was transferred to TCU for continuation of IV antibiotics and further management of respiratory symptoms. Pt. apparently since being in TCU has been on CIpro but yestrday was called by because the sputum cx from 06/19/2018 is K.Pneumonia ESBL and hence I'm asked to evaluate and help with abx management. Pt. is currently resting comfortably in bed. He is awake and alert. He denies any cough or sob. denies any fever. Allergy- denies any allergy to medications Review of Systems - Review of Systems Review of Systems: ROS- denies any fever or chills, denies any cough now but had before, denies any sob now but had before, denies any chest pain, denies any nausea or vomiting, denies any abd. pain, denies any diarrhea, denies any dysurea. Past Patient History - Infectious Disease Hx of Infectious Diseases: None - Past Medical History & Family History Past Medical History?: Yes - Past Social History Smoking Status: Former Smoker Alcohol: None Drugs: Denies Home Situation {Lives}: Alone - CARDIAC Hx Cardiac Disorders: Yes Hx Hypertension: Yes - PULMONARY Hx Respiratory Disorders: Yes Hx Bronchitis: Yes Hx Pneumonia: Yes - NEUROLOGICAL Hx Neurological Disorder: Yes HX Cerebrovascular Accident: Yes (With right side weakness, motor aphasia and dysphagia?) - HEENT Hx HEENT Problems: No - RENAL Hx Chronic Kidney Disease: No - ENDOCRINE/METABOLIC Hx Endocrine Disorders: Yes Hx Diabetes Mellitus Type 2: Yes - HEMATOLOGICAL/ONCOLOGICAL Hx Blood Disorders: No - INTEGUMENTARY Hx Dermatological Problems: No - MUSCULOSKELETAL/RHEUMATOLOGICAL Hx Musculoskeletal Disorders: Yes Hx Falls: No Hx Unsteady Gait: Yes - GASTROINTESTINAL Hx Gastrointestinal Disorders: No - GENITOURINARY/GYNECOLOGICAL Hx Genitourinary Disorders: Yes Hx Incontinence: Yes - PSYCHIATRIC Hx Substance Use: No - SURGICAL HISTORY Hx Surgeries: No - ANESTHESIA Hx Anesthesia: No Meds Allergies/Adverse Reactions: Allergies Allergy/AdvReac Type Severity Reaction Status Date / Time iodine Allergy SWELLING Verified 06/18/18 10:38 shellfish derived Allergy SWELLING Verified 06/18/18 10:38 - Medications Medications: Current Medications Albuterol Sulfate (Albuterol 0.083% Inhal Sandi (2.5 Mg/3 Ml) Ud) 2.5 mg INH RQ4 PRN PRN Reason: Shortness of Breath Alprazolam (Xanax) 0.25 mg PO DAILY [facility] Stop: 06/29/18 09:01 Last Admin: 06/27/18 08:38 Dose: 0.25 mg Aripiprazole (Abilify) 15 mg PO DAILY [facility] Last Admin: 06/27/18 08:33 Dose: 15 mg Cholecalciferol (Vitamin D) 2,000 intlu PO DAILY [facility] Last Admin: 06/27/18 08:32 Dose: 2,000 intlu Ciprofloxacin (Cipro) 500 mg PO Q12 [facility]; Protocol Last Admin: 06/27/18 08:32 Dose: 500 mg Citalopram Hydrobromide (Celexa) 40 mg PO DAILY [facility] Last Admin: 06/27/18 08:32 Dose: 40 mg Dimethicone (Proshield Plus Skin Protectant) 1 applic TOP Q8 [facility] Last Admin: 06/27/18 08:32 Dose: 1 applic Enoxaparin Sodium (Lovenox) 40 mg SC DAILY [facility]; Protocol Last Admin: 06/27/18 08:31 Dose: 40 mg Fenofibrate (Tricor) 145 mg PO DAILY [facility] Last Admin: 06/27/18 08:33 Dose: 145 mg Insulin Detemir (Levemir) 32 units SC HS [facility] Last Admin: 06/26/18 21:25 Dose: 32 u Insulin Human Lispro (Humalog) 0 units SC ACHS [facility]; Protocol Last Admin: 06/27/18 08:33 Dose: Not Given Lactulose (Enulose) 20 gm PO DAILY PRN PRN Reason: Constipation Last Admin: 06/23/18 16:24 Dose: 20 gm Prednisone (Prednisone Tab) 30 mg PO DAILY [facility] Last Admin: 06/27/18 08:32 Dose: 30 mg Physical Exam - Constitutional Appears: No Acute Distress - Head Exam Head Exam: ATRAUMATIC - Eye Exam Eye Exam: EOMI - Neck Exam Neck exam: Positive for: Full Rom - Respiratory Exam Respiratory Exam: NORMAL BREATHING PATTERN Additional comments: no wheezing No crackles - Cardiovascular Exam Cardiovascular Exam: RRR, +S1, +S2 - GI/Abdominal Exam GI & Abdominal Exam: Normal Bowel Sounds, Soft Additional comments: NT, ND - Extremities Exam Additional comments: no edema B/l LE - Neurological Exam Neurological exam: Alert Additional comments: right sided weakness secondary to CVA Results - Vital Signs Recent Vital Signs: Last Vital Signs Temp 97.9 F 06/27/18 07:56 Pulse 55 L 06/27/18 07:56 Resp 20 06/27/18 07:56 BP 122/63 06/27/18 07:56 Pulse Ox 96 06/27/18 07:56 - Labs Result Diagrams: 06/22/18 08:05 06/22/18 08:05 Labs: Laboratory Results - last 24 hr 06/26/18 06/26/18 06/26/18 10:40 15:51 20:04 POC Glucose (mg/dL) 194 H 330 H 253 H 06/27/18 05:24 POC Glucose (mg/dL) 137 H Laboratory Results - last 72 hr 06/24/18 06/24/18 06/25/18 16:24 20:49 05:34 POC Glucose (mg/dL) 241 H 268 H 176 H 06/25/18 06/25/18 06/25/18 10:38 16:03 20:42 POC Glucose (mg/dL) 208 H 282 H 263 H 06/26/18 06/26/18 06/26/18 04:51 10:40 15:51 POC Glucose (mg/dL) 173 H 194 H 330 H 06/26/18 06/27/18 06/27/18 20:04 05:24 10:33 POC Glucose (mg/dL) 253 H 137 H 198 H 06/27/18 15:59 POC Glucose (mg/dL) 434 H* Microbiology 06/22/18 12:10 Blood-Venous Blood Culture - Final NO GROWTH AFTER 5 DAYS 06/22/18 12:10 Blood-Venous Gram Stain - Final TEST NOT PERFORMED 06/22/18 12:05 Blood-Venous Blood Culture - Final NO GROWTH AFTER 5 DAYS 06/22/18 12:05 Blood-Venous Gram Stain - Final TEST NOT PERFORMED Microbiology 06/19/18 20:40 Sputum Gram Stain - Final 06/19/18 20:40 Sputum Sputum Culture - Final Klebsiella Pneumoniae Ssp Pneu 06/17/18 19:03 Blood Blood Culture - Final 06/17/18 19:03 Blood Gram Stain - Final NO GROWTH AFTER 5 DAYS TEST NOT PERFORMED 06/17/18 18:45 Blood Blood Culture - Final 06/17/18 18:45 Blood Gram Stain - Final NO GROWTH AFTER 5 DAYS Accession No. : [id number] Patient Name / ID : UMU GRANT / [id number] Exam Date : 06/17/2018 19:24:53 ( Approved ) Study Comment : Sex / Age : M / 63Y Creator : Amanda Colvin MD Dictator : Amanda Colvin MD First Officer : Audiologist : Amanda Colvin MD Approver2 : Report Date : 06/18/2018 10:58:44 My Comment : Date of service: 06/17/2018 PROCEDURE: CT Chest with contrast HISTORY: resp distress, possibly aspirataion COMPARISON: None available. TECHNIQUE: Contiguous axial images were obtained through the chest with intravenous contrast enhancement. Sagittal and coronal reconstructions were performed. IV contrast: 100 mL of Visipaque 320 intravenously. Radiation dose: Total exam DLP = 569.01 mGy-cm. This CT exam was performed using one or more of the following dose reduction techniques: Automated exposure control, adjustment of the mA and/or kV according to patient size, and/or use of iterative reconstruction technique. FINDINGS: LUNGS: There are foci of airspace consolidation and heterogeneous infiltrate at the posterior dependent portion of both lower lobes may represent aspiration. There is a linear/curvilinear shaped opacity at the inferior aspect of the right lung upper lobe along the right fissure that also may represent aspiration or scar tissue from prior infection or inflammatory process. The ET tube is seen in place extending to the upper trachea at the level of the clavicles. MEDIASTINUM: The thoracic aorta is ectatic and tortuous. The heart is upper normal limit in size. Main pulmonary artery unremarkable. No vascular congestion. No lymphadenopathy. Foci of atherosclerotic calcification noted at the aortic arch. Moderately dilated esophagus contains air-fluid level and fluid density in the mid and distal portion. PLEURA: No pleural fluid. No pneumothorax. BONES: No fracture. No destructive lesion. Findings suggestive of old fracture in upper sternum. UPPER ABDOMEN: Grossly unremarkable. OTHER FINDINGS: None. IMPRESSION: Foci of airspace consolidation at the posterior dependent portion of the bilateral lower lobes and right upper lobe likely represent aspiration. Differential consideration includes less likely multifocal pneumonia. Moderately dilated esophagus contains fluid and air-fluid level. The differential consideration includes gastroesophageal reflux versus stenosis or neoplasm in the distal esophagus. Further evaluation is suggested. Preliminary report was submitted by [facility] Radiology contains concordant findings. TEST NOT PERFORMED Accession No. : [id number] Patient Name / ID : UMU GRANT / [id number] Exam Date : 06/25/2018 16:28:36 ( Approved ) Study Comment : Sex / Age : M / 63Y Creator : Juancarlos Gan MD Dictator : Juancarlos Gan MD First Officer : Audiologist : Juancarlos Gan MD Approver2 : Report Date : 06/25/2018 18:26:30 My Comment : Date of service: 06/25/2018 HISTORY: f/u Dx: aspiration pneumonia COMPARISON: 06/22/2018 TECHNIQUE: Chest PA and lateral views FINDINGS: LUNGS: No active pulmonary disease. PLEURA: No significant pleural effusion identified. No pneumothorax apparent. CARDIOVASCULAR: No aortic atherosclerotic calcification present. Normal cardiac size. No pulmonary vascular congestion. OSSEOUS STRUCTURES: No significant abnormalities. VISUALIZED UPPER ABDOMEN: Normal. OTHER FINDINGS: None. IMPRESSION: No active disease. No significant interval change compared to the prior examination(s). 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 could be carrier of ESBL, and is clinically improved , however it was reported as heavy growth and ESBL typically responds best to carbapenems and hence in light of his CVA and aphasia and risk of aspiration advise to start pt. on IV ertapnem 1 gram daily for 5 days. monitor aspiration precautions. All above d/w patient as well. Thank you for allowing me to take part in the are of this patient.
--- NOTE | 2018-06-27 13:22 | CP.PCM.PN ---
Subjective - Date & Time of Evaluation Date of Evaluation: 06/27/18 Time of Evaluation: 10:30 - Subjective Subjective: F//U s/p PNA, COPD exacerbation. Pt awake, smiling, follows commands, sitting in a chair. Objective - Vital Signs/Intake and Output Vital Signs (last 24 hours): Temp Pulse Resp BP Pulse Ox 97.9 F 55 L 20 122/63 96 06/27/18 07:56 06/27/18 07:56 06/27/18 07:56 06/27/18 07:56 06/27/18 07:56 - Medications Medications: Current Medications Albuterol Sulfate (Albuterol 0.083% Inhal Sandi (2.5 Mg/3 Ml) Ud) 2.5 mg INH RQ4 PRN PRN Reason: Shortness of Breath Alprazolam (Xanax) 0.25 mg PO DAILY [facility] Stop: 06/29/18 09:01 Last Admin: 06/27/18 08:38 Dose: 0.25 mg Aripiprazole (Abilify) 15 mg PO DAILY [facility] Last Admin: 06/27/18 08:33 Dose: 15 mg Cholecalciferol (Vitamin D) 2,000 intlu PO DAILY [facility] Last Admin: 06/27/18 08:32 Dose: 2,000 intlu Ciprofloxacin (Cipro) 500 mg PO Q12 [facility]; Protocol Last Admin: 06/27/18 08:32 Dose: 500 mg Citalopram Hydrobromide (Celexa) 40 mg PO DAILY [facility] Last Admin: 06/27/18 08:32 Dose: 40 mg Dimethicone (Proshield Plus Skin Protectant) 1 applic TOP Q8 [facility] Last Admin: 06/27/18 08:32 Dose: 1 applic Enoxaparin Sodium (Lovenox) 40 mg SC DAILY [facility]; Protocol Last Admin: 06/27/18 08:31 Dose: 40 mg Fenofibrate (Tricor) 145 mg PO DAILY [facility] Last Admin: 06/27/18 08:33 Dose: 145 mg Insulin Detemir (Levemir) 32 units SC HS [facility] Last Admin: 06/26/18 21:25 Dose: 32 u Insulin Human Lispro (Humalog) 0 units SC ACHS [facility]; Protocol Last Admin: 06/27/18 11:30 Dose: 1 units Lactulose (Enulose) 20 gm PO DAILY PRN PRN Reason: Constipation Last Admin: 06/23/18 16:24 Dose: 20 gm Prednisone (Prednisone Tab) 30 mg PO DAILY [facility] Last Admin: 06/27/18 08:32 Dose: 30 mg - Labs Labs: 06/22/18 08:05 06/22/18 08:05 - Constitutional Appears: No Acute Distress - Head Exam Head Exam: NORMAL INSPECTION - Eye Exam Eye Exam: PERRL - ENT Exam ENT Exam: Normal Exam - Neck Exam Neck Exam: Normal Inspection - Respiratory Exam Respiratory Exam: Decreased Breath Sounds (at bases) - Cardiovascular Exam Cardiovascular Exam: REGULAR RHYTHM - GI/Abdominal Exam GI & Abdominal Exam: Soft, Normal Bowel Sounds - Extremities Exam Extremities Exam: Normal Inspection - Back Exam Back Exam: NORMAL INSPECTION - Neurological Exam Neurological Exam: Alert Additional comments: Ox2, forgetful, follows commands, R hemiparesia - Psychiatric Exam Psychiatric exam: Normal Mood - Skin Skin Exam: Warm Assessment and Plan (1) COPD exacerbation Status: Acute (2) Aspiration pneumonia Status: Resolved
[2018-06-27] MEDS: Insulin Detemir 100 Units/ml Inj SC SCH (21:28)
[2018-06-28] MEDS: Proshield Plus GEL TOP SCH ×3 (00:07→16:45)
[2018-06-28] MEDS: Insulin Lispro (humaLOG) 100 Units/ml Inj SC SCH ×4 (06:50→22:03)
[2018-06-28 07:49] LABS: HEMOGLOBIN 14.4 g/dL (12.0-18.0); MEAN CELL VOLUME 83.7 fl (80.0-94.0); MEAN CORPUSCULAR HEMOGLOBIN 28.2 pg (27.0-31.0); MEAN CORPUSCULAR HGB CONC 33.7 g/dL (33.0-37.0); RBC 5.1 Mil/uL (4.40-5.90); RED CELL DISTRIBUTION WIDTH 14.5 % (11.5-14.5); WHITE BLOOD COUNT 9.7 K/uL (4.8-10.8)
[2018-06-28 08:17] LABS: ALB/GLOB RATIO 1.5 (1.0-2.1); ALBUMIN 3.9 g/dL (3.5-5.0); ALT/SGPT 17 U/L (21-72); AST/SGOT 9 U/L (17-59); BLOOD UREA NITROGEN 18 mg/dl (9-20); CALCIUM 9.1 mg/dL (8.4-10.2); GFR NON-AFRICAN AMERICAN > 60
[2018-06-28] MEDS: Enoxaparin 40 mg Syringe SC SCH (09:23)
[2018-06-28] MEDS: Cholecalciferol 1,000 INTLU TAB PO SCH (09:25)
--- NOTE | 2018-06-28 14:32 | CP.PCM.PN ---
Subjective - Date & Time of Evaluation Date of Evaluation: 06/28/18 Time of Evaluation: 14:30 - Subjective Subjective: F/U s/p PNA, COPD Pt awake, smiling. no A/D. Objective - Vital Signs/Intake and Output Vital Signs (last 24 hours): Temp Pulse Resp BP Pulse Ox 98.3 F 68 20 129/79 95 06/28/18 08:46 06/28/18 08:46 06/28/18 08:46 06/28/18 08:46 06/28/18 08:46 - Medications Medications: Current Medications Albuterol Sulfate (Albuterol 0.083% Inhal Sandi (2.5 Mg/3 Ml) Ud) 2.5 mg INH RQ4 PRN PRN Reason: Shortness of Breath Alprazolam (Xanax) 0.25 mg PO DAILY [facility] Stop: 06/29/18 09:01 Last Admin: 06/28/18 09:24 Dose: 0.25 mg Aripiprazole (Abilify) 15 mg PO DAILY [facility] Last Admin: 06/28/18 12:57 Dose: 15 mg Cholecalciferol (Vitamin D) 2,000 intlu PO DAILY [facility] Last Admin: 06/28/18 09:25 Dose: 2,000 intlu Citalopram Hydrobromide (Celexa) 40 mg PO DAILY [facility] Last Admin: 06/28/18 09:26 Dose: 40 mg Dimethicone (Proshield Plus Skin Protectant) 1 applic TOP Q8 [facility] Last Admin: 06/28/18 09:24 Dose: 1 applic Enoxaparin Sodium (Lovenox) 40 mg SC DAILY [facility]; Protocol Last Admin: 06/28/18 09:23 Dose: 40 mg Fenofibrate (Tricor) 145 mg PO DAILY [facility] Last Admin: 06/28/18 09:26 Dose: 145 mg Ertapenem 1 gm/ Sodium (Chloride) 100 mls @ 100 mls/hr IVPB DAILY [facility]; Protocol Last Admin: 06/28/18 09:31 Dose: 100 mls/hr Insulin Detemir (Levemir) 32 units SC HS [facility] Last Admin: 06/27/18 21:28 Dose: 32 u Insulin Human Lispro (Humalog) 0 units SC ACHS [facility]; Protocol Last Admin: 06/28/18 11:30 Dose: 3 units Lactulose (Enulose) 20 gm PO DAILY PRN PRN Reason: Constipation Last Admin: 06/23/18 16:24 Dose: 20 gm Prednisone (Prednisone Tab) 30 mg PO DAILY [facility] Last Admin: 06/28/18 09:25 Dose: 30 mg - Labs Labs: 06/28/18 07:10 06/28/18 07:10 - Constitutional Appears: No Acute Distress - Head Exam Head Exam: NORMAL INSPECTION - Eye Exam Eye Exam: PERRL - ENT Exam ENT Exam: Normal Exam - Neck Exam Neck Exam: Normal Inspection - Respiratory Exam Respiratory Exam: Decreased Breath Sounds (at bases) - Cardiovascular Exam Cardiovascular Exam: REGULAR RHYTHM - GI/Abdominal Exam GI & Abdominal Exam: Soft, Normal Bowel Sounds - Extremities Exam Extremities Exam: Normal Inspection - Back Exam Back Exam: NORMAL INSPECTION - Neurological Exam Neurological Exam: Alert Additional comments: Ox 2, forgetful, follows commands, R hemiparesia - Psychiatric Exam Psychiatric exam: Normal Mood - Skin Skin Exam: Warm Assessment and Plan (1) COPD exacerbation Status: Acute (2) Aspiration pneumonia Status: Resolved - Assessment and Plan (Free Text) Plan: Continue with Ertapenem, Prednisone and rest of Tx.
--- NOTE | 2018-06-28 15:24 | CP.PCM.PN ---
Subjective - Date & Time of Evaluation Date of Evaluation: 06/28/18 Time of Evaluation: 15:24 - Subjective Subjective: doing well no complaints hd stable nad Objective - Vital Signs/Intake and Output Vital Signs (last 24 hours): Temp Pulse Resp BP Pulse Ox 98.3 F 68 20 129/79 95 06/28/18 08:46 06/28/18 08:46 06/28/18 08:46 06/28/18 08:46 06/28/18 08:46 Intake and Output: Vitals Reviewed GEN: WDWN, alert, cooperative HEENT: NCAT, PERRL, EOMI HEART: RRR, +S1S2, NO MRG LUNG: CTAB, NO WRR ABD: soft, NT, ND, No HSM, No masses EXT: normal pedal pulses NEURO: awake, alert SKIN: warm, dry PSYCH: normal mood, normal affect - Medications Medications: Current Medications Albuterol Sulfate (Albuterol 0.083% Inhal Sandi (2.5 Mg/3 Ml) Ud) 2.5 mg INH RQ4 PRN PRN Reason: Shortness of Breath Alprazolam (Xanax) 0.25 mg PO DAILY [facility] Stop: 06/29/18 09:01 Last Admin: 06/28/18 09:24 Dose: 0.25 mg Aripiprazole (Abilify) 15 mg PO DAILY [facility] Last Admin: 06/28/18 12:57 Dose: 15 mg Cholecalciferol (Vitamin D) 2,000 intlu PO DAILY [facility] Last Admin: 06/28/18 09:25 Dose: 2,000 intlu Citalopram Hydrobromide (Celexa) 40 mg PO DAILY [facility] Last Admin: 06/28/18 09:26 Dose: 40 mg Dimethicone (Proshield Plus Skin Protectant) 1 applic TOP Q8 [facility] Last Admin: 06/28/18 09:24 Dose: 1 applic Enoxaparin Sodium (Lovenox) 40 mg SC DAILY [facility]; Protocol Last Admin: 06/28/18 09:23 Dose: 40 mg Fenofibrate (Tricor) 145 mg PO DAILY [facility] Last Admin: 06/28/18 09:26 Dose: 145 mg Ertapenem 1 gm/ Sodium (Chloride) 100 mls @ 100 mls/hr IVPB DAILY [facility]; Protocol Last Admin: 06/28/18 09:31 Dose: 100 mls/hr Insulin Detemir (Levemir) 32 units SC HS [facility] Last Admin: 06/27/18 21:28 Dose: 32 u Insulin Human Lispro (Humalog) 0 units SC ACHS [facility]; Protocol Last Admin: 06/28/18 11:30 Dose: 3 units Lactulose (Enulose) 20 gm PO DAILY PRN PRN Reason: Constipation Last Admin: 06/23/18 16:24 Dose: 20 gm Prednisone (Prednisone Tab) 30 mg PO DAILY [facility] Last Admin: 06/28/18 09:25 Dose: 30 mg - Labs Labs: 06/28/18 07:10 06/28/18 07:10 Assessment and Plan - Assessment and Plan (Free Text) Plan: 63 yo male with history of DM2, HTN and CVA with residual right sided weakness, aphasia and difficulty swallowing admitted because of choking while eating. Patient went in to respiratory distress and was intubated. Chest CT showed bilateral lower lobes and right upper lobe infiltrates. Patient was started on IV antibiotics and was extubated. Sputum culture grew ESBL Klebsiella pneumonia. Patient was transferred to TCU for continuation of IV antibiotics and further management of respiratory symptoms. 1. Aspiration PNA completed 8 days of IV Zithromax and Zosyn sputum was positive for ESBL Klebsiella pneumonia PER ID, 5 DAYS OF ERTAPENEM ORDERED steroid switched to PO Prednisone 30mg PO q am Dr Pickens on pulmonology consult 2. History of CVA continue PT/OT/ST continue nectar thickened, finely chopped diet 3. DM II with Hyperglycemia BS uncontrolled probably secondary to steroid Continue Levemir 32 units SC HS and Lispro on sliding scale 4. DVT prophylaxis on Lovenox
[2018-06-28] MEDS ORDERED: Potassium Chloride 20 mEq ER Tab PO ONE (19:18)
[2018-06-28] MEDS ORDERED: Insulin Lispro (humaLOG) 100 Units/ml Inj SC STA (21:24)
[2018-06-28] MEDS: Insulin Detemir 100 Units/ml Inj SC SCH (21:46)
[2018-06-29] MEDS: Proshield Plus GEL TOP SCH ×3 (00:20→16:30)
[2018-06-29] MEDS: Insulin Lispro (humaLOG) 100 Units/ml Inj SC SCH ×4 (06:45→22:48)
[2018-06-29] MEDS: Enoxaparin 40 mg Syringe SC SCH (08:31)
[2018-06-29] MEDS: Cholecalciferol 1,000 INTLU TAB PO SCH (08:32)
--- NOTE | 2018-06-29 17:12 | CP.PCM.PN ---
Subjective - Date & Time of Evaluation Date of Evaluation: 06/29/18 Time of Evaluation: 15:50 - Subjective Subjective: F/U s/p PNA, COPD. Objective - Vital Signs/Intake and Output Vital Signs (last 24 hours): Temp Pulse Resp BP Pulse Ox 98.2 F 70 20 122/78 97 06/29/18 08:23 06/29/18 08:23 06/29/18 08:23 06/29/18 08:23 06/29/18 08:23 - Medications Medications: Current Medications Albuterol Sulfate (Albuterol 0.083% Inhal Sandi (2.5 Mg/3 Ml) Ud) 2.5 mg INH RQ4 PRN PRN Reason: Shortness of Breath Aripiprazole (Abilify) 15 mg PO DAILY [facility] Last Admin: 06/29/18 08:32 Dose: 15 mg Cholecalciferol (Vitamin D) 2,000 intlu PO DAILY [facility] Last Admin: 06/29/18 08:32 Dose: 2,000 intlu Citalopram Hydrobromide (Celexa) 40 mg PO DAILY [facility] Last Admin: 06/29/18 08:33 Dose: 40 mg Dimethicone (Proshield Plus Skin Protectant) 1 applic TOP Q8 [facility] Last Admin: 06/29/18 16:30 Dose: 1 applic Enoxaparin Sodium (Lovenox) 40 mg SC DAILY [facility]; Protocol Last Admin: 06/29/18 08:31 Dose: 40 mg Fenofibrate (Tricor) 145 mg PO DAILY [facility] Last Admin: 06/29/18 08:33 Dose: 145 mg Ertapenem 1 gm/ Sodium (Chloride) 100 mls @ 100 mls/hr IVPB DAILY [facility]; Protocol Last Admin: 06/29/18 08:40 Dose: 100 mls/hr Insulin Detemir (Levemir) 32 units SC HS [facility] Last Admin: 06/28/18 21:46 Dose: 32 u Insulin Human Lispro (Humalog) 0 units SC ACHS [facility]; Protocol Last Admin: 06/29/18 16:35 Dose: 3 units Lactulose (Enulose) 20 gm PO DAILY PRN PRN Reason: Constipation Last Admin: 06/23/18 16:24 Dose: 20 gm Prednisone (Prednisone Tab) 30 mg PO DAILY [facility] Last Admin: 06/29/18 08:32 Dose: 30 mg - Labs Labs: 06/28/18 07:10 06/28/18 07:10 - Constitutional Appears: No Acute Distress - Head Exam Head Exam: NORMAL INSPECTION - Eye Exam Eye Exam: PERRL - ENT Exam ENT Exam: Normal Exam - Neck Exam Neck Exam: Normal Inspection - Respiratory Exam Respiratory Exam: Decreased Breath Sounds (at bases) - Cardiovascular Exam Cardiovascular Exam: REGULAR RHYTHM - GI/Abdominal Exam GI & Abdominal Exam: Soft, Normal Bowel Sounds - Extremities Exam Extremities Exam: Normal Inspection - Back Exam Back Exam: NORMAL INSPECTION - Neurological Exam Neurological Exam: Alert Additional comments: Ox2, forgetful, follows commands, R hemiparesis. - Psychiatric Exam Psychiatric exam: Normal Mood - Skin Skin Exam: Warm Assessment and Plan (1) COPD exacerbation Status: Acute (2) Aspiration pneumonia Status: Resolved
[2018-06-29] MEDS: Insulin Detemir 100 Units/ml Inj SC SCH (23:06)
[2018-06-30] MEDS: Proshield Plus GEL TOP SCH ×3 (01:57→16:26)
[2018-06-30] MEDS: Insulin Lispro (humaLOG) 100 Units/ml Inj SC SCH ×4 (06:58→21:28)
[2018-06-30] MEDS: Enoxaparin 40 mg Syringe SC SCH (08:51)
[2018-06-30] MEDS: Cholecalciferol 1,000 INTLU TAB PO SCH (08:52)
[2018-06-30] MEDS: Insulin Detemir 100 Units/ml Inj SC SCH (21:23)
[2018-07-01] MEDS: Proshield Plus GEL TOP SCH ×3 (00:23→17:15)
[2018-07-01] MEDS: Insulin Lispro (humaLOG) 100 Units/ml Inj SC SCH ×4 (06:56→21:17)
[2018-07-01] MEDS: Enoxaparin 40 mg Syringe SC SCH (09:36)
[2018-07-01] MEDS: Cholecalciferol 1,000 INTLU TAB PO SCH (09:37)
--- NOTE | 2018-07-01 16:57 | CP.PCM.PN ---
Subjective - Date & Time of Evaluation Date of Evaluation: 07/01/18 Time of Evaluation: 13:00 - Subjective Subjective: No acute distress, no complaints, refused to give sputum for C-S Objective - Vital Signs/Intake and Output Vital Signs (last 24 hours): Temp Pulse Resp BP Pulse Ox 98.6 F 80 20 114/67 95 07/01/18 15:36 07/01/18 15:36 07/01/18 15:36 07/01/18 15:36 07/01/18 15:36 - Medications Medications: Current Medications Albuterol Sulfate (Albuterol 0.083% Inhal Sandi (2.5 Mg/3 Ml) Ud) 2.5 mg INH RQ4 PRN PRN Reason: Shortness of Breath Aripiprazole (Abilify) 15 mg PO DAILY [facility] Last Admin: 07/01/18 09:34 Dose: 15 mg Cholecalciferol (Vitamin D) 2,000 intlu PO DAILY [facility] Last Admin: 07/01/18 09:37 Dose: 2,000 intlu Citalopram Hydrobromide (Celexa) 40 mg PO DAILY [facility] Last Admin: 07/01/18 09:35 Dose: 40 mg Dimethicone (Proshield Plus Skin Protectant) 1 applic TOP Q8 [facility] Last Admin: 07/01/18 09:37 Dose: 1 applic Enoxaparin Sodium (Lovenox) 40 mg SC DAILY [facility]; Protocol Last Admin: 07/01/18 09:36 Dose: 40 mg Fenofibrate (Tricor) 145 mg PO DAILY [facility] Last Admin: 07/01/18 09:37 Dose: 145 mg Ertapenem 1 gm/ Sodium (Chloride) 100 mls @ 100 mls/hr IVPB DAILY [facility]; Protocol Last Admin: 07/01/18 09:36 Dose: 100 mls/hr Insulin Detemir (Levemir) 32 units SC HS [facility] Last Admin: 06/30/18 21:23 Dose: 32 u Insulin Human Lispro (Humalog) 0 units SC ACHS [facility]; Protocol Last Admin: 07/01/18 13:08 Dose: 2 units Lactulose (Enulose) 20 gm PO DAILY PRN PRN Reason: Constipation Last Admin: 06/23/18 16:24 Dose: 20 gm Prednisone (Prednisone Tab) 30 mg PO DAILY [facility] Last Admin: 07/01/18 09:36 Dose: 30 mg - Labs Labs: 06/28/18 07:10 06/28/18 07:10 - Constitutional Appears: No Acute Distress - Head Exam Head Exam: NORMAL INSPECTION - Eye Exam Eye Exam: PERRL - ENT Exam ENT Exam: Normal Exam - Neck Exam Neck Exam: Normal Inspection - Respiratory Exam Respiratory Exam: Decreased Breath Sounds (at bases) - Cardiovascular Exam Cardiovascular Exam: REGULAR RHYTHM - GI/Abdominal Exam GI & Abdominal Exam: Soft, Normal Bowel Sounds - Extremities Exam Extremities Exam: Normal Inspection - Back Exam Back Exam: NORMAL INSPECTION - Neurological Exam Neurological Exam: Alert Additional comments: Forgetful, follows commands, R hemiparesia. - Psychiatric Exam Psychiatric exam: Normal Mood - Skin Skin Exam: Warm Assessment and Plan (1) COPD exacerbation Status: Acute (2) Aspiration pneumonia Status: Resolved - Assessment and Plan (Free Text) Plan: Off antibiotics, continue rest of treatment
[2018-07-01] MEDS: Insulin Detemir 100 Units/ml Inj SC SCH (21:17)
[2018-07-02] MEDS: Proshield Plus GEL TOP SCH ×3 (01:35→16:04)
[2018-07-02] MEDS: Insulin Lispro (humaLOG) 100 Units/ml Inj SC SCH ×4 (06:38→21:04)
[2018-07-02] MEDS: Enoxaparin 40 mg Syringe SC SCH (09:16)
[2018-07-02] MEDS: Cholecalciferol 1,000 INTLU TAB PO SCH (09:17)
--- NOTE | 2018-07-02 16:32 | CP.PCM.PN ---
Subjective - Date & Time of Evaluation Date of Evaluation: 07/02/18 Time of Evaluation: 11:20 - Subjective Subjective: F/U PNA, COPD no AD,smiling, follows commands Objective - Vital Signs/Intake and Output Vital Signs (last 24 hours): Temp Pulse Resp BP Pulse Ox 98.3 F 73 20 116/66 95 07/02/18 16:15 07/02/18 16:15 07/02/18 16:15 07/02/18 16:15 07/02/18 16:15 - Medications Medications: Current Medications Albuterol Sulfate (Albuterol 0.083% Inhal Sandi (2.5 Mg/3 Ml) Ud) 2.5 mg INH RQ4 PRN PRN Reason: Shortness of Breath Aripiprazole (Abilify) 15 mg PO DAILY [facility] Last Admin: 07/02/18 09:17 Dose: 15 mg Cholecalciferol (Vitamin D) 2,000 intlu PO DAILY [facility] Last Admin: 07/02/18 09:17 Dose: 2,000 intlu Citalopram Hydrobromide (Celexa) 40 mg PO DAILY [facility] Last Admin: 07/02/18 09:18 Dose: 40 mg Dimethicone (Proshield Plus Skin Protectant) 1 applic TOP Q8 [facility] Last Admin: 07/02/18 16:04 Dose: 1 applic Enoxaparin Sodium (Lovenox) 40 mg SC DAILY [facility]; Protocol Last Admin: 07/02/18 09:16 Dose: 40 mg Fenofibrate (Tricor) 145 mg PO DAILY [facility] Last Admin: 07/02/18 09:18 Dose: 145 mg Insulin Detemir (Levemir) 32 units SC HS [facility] Last Admin: 07/01/18 21:17 Dose: 32 u Insulin Human Lispro (Humalog) 0 units SC ACHS [facility]; Protocol Last Admin: 07/02/18 16:04 Dose: 5 units Lactulose (Enulose) 20 gm PO DAILY PRN PRN Reason: Constipation Last Admin: 06/23/18 16:24 Dose: 20 gm Prednisone (Prednisone Tab) 30 mg PO DAILY [facility] Last Admin: 07/02/18 09:17 Dose: 30 mg - Labs Labs: 06/28/18 07:10 06/28/18 07:10 - Constitutional Appears: No Acute Distress - Head Exam Head Exam: NORMAL INSPECTION - Eye Exam Eye Exam: PERRL - ENT Exam ENT Exam: Normal Exam - Neck Exam Neck Exam: Normal Inspection - Respiratory Exam Respiratory Exam: Decreased Breath Sounds (at bases) - Cardiovascular Exam Cardiovascular Exam: REGULAR RHYTHM - GI/Abdominal Exam GI & Abdominal Exam: Soft, Normal Bowel Sounds - Extremities Exam Extremities Exam: Normal Inspection - Back Exam Back Exam: NORMAL INSPECTION - Neurological Exam Neurological Exam: Alert, Awake Additional comments: O x2, forgetful, follows commands, R hemiparesis - Psychiatric Exam Psychiatric exam: Normal Mood - Skin Skin Exam: Warm Assessment and Plan (1) COPD exacerbation Status: Acute (2) Aspiration pneumonia Status: Resolved - Assessment and Plan (Free Text) Plan: continue DuoNeb, Prednisone and rest of Tx, discharge planning in am
[2018-07-02 19:41] VITALS: BP 120/68; PULSE 72; TEMP 97.7; O2SAT 94
[2018-07-02] MEDS: Insulin Detemir 100 Units/ml Inj SC SCH (21:04)
[2018-07-03] MEDS: Proshield Plus GEL TOP SCH ×2 (00:22→09:33)
[2018-07-03] MEDS: Insulin Lispro (humaLOG) 100 Units/ml Inj SC SCH ×2 (06:40→11:26)
[2018-07-03] MEDS: Enoxaparin 40 mg Syringe SC SCH (09:31)
[2018-07-03 09:32] LABS: ALB/GLOB RATIO 1.3 (1.0-2.1); ALBUMIN 3.8 g/dL (3.5-5.0); ALT/SGPT 20 U/L (21-72); AST/SGOT 10 U/L (17-59); BLOOD UREA NITROGEN 23 mg/dl (9-20); CALCIUM 8.6 mg/dL (8.4-10.2); GFR NON-AFRICAN AMERICAN > 60; HEMOGLOBIN 14.9 g/dL (12.0-18.0); MEAN CELL VOLUME 83.5 fl (80.0-94.0); MEAN CORPUSCULAR HEMOGLOBIN 27.9 pg (27.0-31.0); MEAN CORPUSCULAR HGB CONC 33.4 g/dL (33.0-37.0); RBC 5.33 Mil/uL (4.40-5.90); RED CELL DISTRIBUTION WIDTH 14.7 % (11.5-14.5); WHITE BLOOD COUNT 10.2 K/uL (4.8-10.8)
[2018-07-03] MEDS: Cholecalciferol 1,000 INTLU TAB PO SCH (09:33)
[2018-07-03] MEDS ORDERED: Potassium Chloride 10 mEq ER Tab PO ONE (10:45)
[2018-07-03] MEDS ORDERED: Potassium Chloride 10 mEq ER Tab PO SCH (11:45)
--- NOTE | 2018-07-03 11:50 | CP.PCM.DIS ---
Provider - Provider Date of Admission: 06/21/18 22:44 Attending physician: Butch Monk Primary care physician: NO FAMILY PROVIDER Consults: 06/21/18 23:53 Nursing Referral for Wound Care Routine Comment: Physician Instructions: Reason For Exam: sacral redness and dry scar 06/22/18 00:17 Pulmonology Consult Routine Comment: Consulting Provider: Marin Pickens Consulting Physician: Marin Pickens Reason for Consult: Aspiration Pneumonia 06/26/18 14:34 Infectious Disease Consult Routine Comment: Consulting Provider: Ailyn Elder Consulting Physician: Ailyn Elder Reason for Consult: ESBL Klebsiella in sputum Diagnosis - Discharge Diagnosis (1) Aspiration pneumonia Status: Resolved Comment: completed IV antibiotics (2) H/O: CVA (cerebrovascular accident) Status: Chronic Comment: continue PT at home (3) DM2 (diabetes mellitus, type 2) Status: Acute Comment: continue [facility] Course - Lab Results Lab Results: Micro Results 06/22/18 12:10 Blood-Venous Blood Culture - Final NO GROWTH AFTER 5 DAYS 06/22/18 12:10 Blood-Venous Gram Stain - Final TEST NOT PERFORMED 06/22/18 12:05 Blood-Venous Blood Culture - Final NO GROWTH AFTER 5 DAYS 06/22/18 12:05 Blood-Venous Gram Stain - Final TEST NOT PERFORMED Most Recent Lab Values WBC 10.2 K/uL (4.8-10.8) 07/03/18 08:40 RBC 5.33 Mil/uL (4.40-5.90) 07/03/18 08:40 Hgb 14.9 g/dL (12.0-18.0) 07/03/18 08:40 Hct 44.5 % (35.0-51.0) 07/03/18 08:40 MCV 83.5 fl (80.0-94.0) 07/03/18 08:40 MCH 27.9 pg (27.0-31.0) 07/03/18 08:40 MCHC 33.4 g/dL (33.0-37.0) 07/03/18 08:40 RDW 14.7 % (11.5-14.5) H 07/03/18 08:40 Plt Count 223 K/uL (130-400) 07/03/18 08:40 MPV 7.7 fl (7.2-11.7) 06/22/18 08:05 Neut % (Auto) 67.4 % (50.0-75.0) 06/22/18 08:05 Lymph % (Auto) 20.0 % (20.0-40.0) 06/22/18 08:05 [place] % (Auto) 8.9 % (0.0-10.0) 06/22/18 08:05 Eos % (Auto) 2.7 % (0.0-4.0) 06/22/18 08:05 Baso % (Auto) 1.0 % (0.0-2.0) 06/22/18 08:05 Neut # (Auto) 5.2 K/uL (1.8-7.0) 06/22/18 08:05 Lymph # (Auto) 1.6 K/uL (1.0-4.3) 06/22/18 08:05 [place] # (Auto) 0.7 K/uL (0.0-0.8) 06/22/18 08:05 Eos # (Auto) 0.2 K/uL (0.0-0.7) 06/22/18 08:05 Baso # (Auto) 0.1 K/uL (0.0-0.2) 06/22/18 08:05 Sodium 142 mmol/l (132-148) 07/03/18 08:40 Potassium 3.4 MMOL/L (3.6-5.0) L 07/03/18 08:40 Chloride 107 mmol/L (98-107) 07/03/18 08:40 Carbon Dioxide 25 mmol/L (22-30) 07/03/18 08:40 Anion Gap 13 (10-20) 07/03/18 08:40 BUN 23 mg/dl (9-20) H 07/03/18 08:40 Creatinine 0.8 mg/dl (0.8-1.5) 07/03/18 08:40 Est GFR ( Amer) > 60 07/03/18 08:40 Est GFR (Non-Af Amer) > 60 07/03/18 08:40 POC Glucose (mg/dL) 322 mg/dL (65-110) H 07/03/18 10:56 Random Glucose 134 mg/dL (75-110) H 07/03/18 08:40 Calcium 8.6 mg/dL (8.4-10.2) 07/03/18 08:40 Total Bilirubin 0.6 mg/dl (0.2-1.3) 07/03/18 08:40 AST 10 U/L (17-59) L 07/03/18 08:40 ALT 20 U/L (21-72) L 07/03/18 08:40 Alkaline Phosphatase 48 U/L (38-126) 07/03/18 08:40 Total Protein 6.6 G/DL (6.3-8.2) 07/03/18 08:40 Albumin 3.8 g/dL (3.5-5.0) 07/03/18 08:40 Globulin 2.8 gm/dL (2.2-3.9) 07/03/18 08:40 Albumin/Globulin Ratio 1.3 (1.0-2.1) 07/03/18 08:40 - Hospital Course Hospital Course: 63 yo male with history of DM2, HTN and CVA with residual right sided weakness, aphasia and difficulty swallowing admitted because of choking while eating. Patient went in to respiratory distress and was intubated. Chest CT showed bilateral lower lobes and right upper lobe infiltrates. Patient was started on IV antibiotics and was extubated. Sputum culture grew ESBL Klebsiella pneumonia. Patient was transferred to TCU for continuation of IV antibiotics and further management of respiratory symptoms. Patient did well and now is ready for discharge. Discharge Exam - Head Exam Head Exam: NORMAL INSPECTION - Eye Exam Eye Exam: absent: Scleral icterus - ENT Exam ENT Exam: Mucous Membranes Moist - Respiratory Exam Respiratory Exam: absent: Rales, Rhonchi, Wheezes, Respiratory Distress - Cardiovascular Exam Cardiovascular Exam: REGULAR RHYTHM, +S1, +S2 - GI/Abdominal Exam GI & Abdominal Exam: Soft. absent: Tenderness - Rectal Exam Rectal Exam: Deferred - Neurological Exam Neurological exam: Alert, Oriented x3 - Psychiatric Exam Psychiatric exam: Normal Affect - Skin Skin Exam: Dry, Intact Discharge Plan - Discharge Medications Prescriptions: Potassium Chloride [Klor-Con 10] 10 meq PO DAILY #7 ter - Follow Up Plan Condition: GOOD Disposition: HOME/ ROUTINE Instructions: Adult Respiratory Distress Syndrome Additional Instructions: Pls follow up with own private MD, call for appointment. Bring lists of medications to your private MD. Keep HOB elevated when eating. Turn to sides when in bed. 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 Take more oral liquids. Referrals: FAMILY PROVIDER,NO [Primary Care Provider] -
--- NOTE | 2018-07-03 11:55 | CP.PCM.DIS ---
Provider - Provider Date of Admission: 06/21/18 22:44 Attending physician: Butch Monk Primary care physician: NO FAMILY PROVIDER Consults: 06/21/18 23:53 Nursing Referral for Wound Care Routine Comment: Physician Instructions: Reason For Exam: sacral redness and dry scar 06/22/18 00:17 Pulmonology Consult Routine Comment: Consulting Provider: Marin Pickens Consulting Physician: Marin Pickens Reason for Consult: Aspiration Pneumonia 06/26/18 14:34 Infectious Disease Consult Routine Comment: Consulting Provider: Ailyn Elder Consulting Physician: Ailyn Elder Reason for Consult: ESBL Klebsiella in sputum Time Spent in preparation of Discharge (in minutes): 25 Diagnosis - Discharge Diagnosis (1) Aspiration pneumonia Status: Resolved Comment: completed IV antibiotics (2) H/O: CVA (cerebrovascular accident) Status: Chronic Comment: continue PT at home (3) DM2 (diabetes mellitus, type 2) Status: Acute Comment: hyperglycemic secondary to steroid. continue [facility] Hospital Course - Lab Results Lab Results: Micro Results 06/22/18 12:10 Blood-Venous Blood Culture - Final NO GROWTH AFTER 5 DAYS 06/22/18 12:10 Blood-Venous Gram Stain - Final TEST NOT PERFORMED 06/22/18 12:05 Blood-Venous Blood Culture - Final NO GROWTH AFTER 5 DAYS 06/22/18 12:05 Blood-Venous Gram Stain - Final TEST NOT PERFORMED Most Recent Lab Values WBC 10.2 K/uL (4.8-10.8) 07/03/18 08:40 RBC 5.33 Mil/uL (4.40-5.90) 07/03/18 08:40 Hgb 14.9 g/dL (12.0-18.0) 07/03/18 08:40 Hct 44.5 % (35.0-51.0) 07/03/18 08:40 MCV 83.5 fl (80.0-94.0) 07/03/18 08:40 MCH 27.9 pg (27.0-31.0) 07/03/18 08:40 MCHC 33.4 g/dL (33.0-37.0) 07/03/18 08:40 RDW 14.7 % (11.5-14.5) H 07/03/18 08:40 Plt Count 223 K/uL (130-400) 07/03/18 08:40 MPV 7.7 fl (7.2-11.7) 06/22/18 08:05 Neut % (Auto) 67.4 % (50.0-75.0) 06/22/18 08:05 Lymph % (Auto) 20.0 % (20.0-40.0) 06/22/18 08:05 [place] % (Auto) 8.9 % (0.0-10.0) 06/22/18 08:05 Eos % (Auto) 2.7 % (0.0-4.0) 06/22/18 08:05 Baso % (Auto) 1.0 % (0.0-2.0) 06/22/18 08:05 Neut # (Auto) 5.2 K/uL (1.8-7.0) 06/22/18 08:05 Lymph # (Auto) 1.6 K/uL (1.0-4.3) 06/22/18 08:05 [place] # (Auto) 0.7 K/uL (0.0-0.8) 06/22/18 08:05 Eos # (Auto) 0.2 K/uL (0.0-0.7) 06/22/18 08:05 Baso # (Auto) 0.1 K/uL (0.0-0.2) 06/22/18 08:05 Sodium 142 mmol/l (132-148) 07/03/18 08:40 Potassium 3.4 MMOL/L (3.6-5.0) L 07/03/18 08:40 Chloride 107 mmol/L (98-107) 07/03/18 08:40 Carbon Dioxide 25 mmol/L (22-30) 07/03/18 08:40 Anion Gap 13 (10-20) 07/03/18 08:40 BUN 23 mg/dl (9-20) H 07/03/18 08:40 Creatinine 0.8 mg/dl (0.8-1.5) 07/03/18 08:40 Est GFR ( Amer) > 60 07/03/18 08:40 Est GFR (Non-Af Amer) > 60 07/03/18 08:40 POC Glucose (mg/dL) 322 mg/dL (65-110) H 07/03/18 10:56 Random Glucose 134 mg/dL (75-110) H 07/03/18 08:40 Calcium 8.6 mg/dL (8.4-10.2) 07/03/18 08:40 Total Bilirubin 0.6 mg/dl (0.2-1.3) 07/03/18 08:40 AST 10 U/L (17-59) L 07/03/18 08:40 ALT 20 U/L (21-72) L 07/03/18 08:40 Alkaline Phosphatase 48 U/L (38-126) 07/03/18 08:40 Total Protein 6.6 G/DL (6.3-8.2) 07/03/18 08:40 Albumin 3.8 g/dL (3.5-5.0) 07/03/18 08:40 Globulin 2.8 gm/dL (2.2-3.9) 07/03/18 08:40 Albumin/Globulin Ratio 1.3 (1.0-2.1) 07/03/18 08:40 - Hospital Course Hospital Course: 63 yo male with history of DM2, HTN and CVA with residual right sided weakness, aphasia and difficulty swallowing admitted because of choking while eating. Patient went in to respiratory distress and was intubated. Chest CT showed bilateral lower lobes and right upper lobe infiltrates. Patient was started on IV antibiotics and was extubated. Sputum culture grew ESBL Klebsiella pneumonia. Patient was transferred to TCU for continuation of IV antibiotics and further management of respiratory symptoms. Patient did well and now is ready for discharge Discharge Exam - Head Exam Head Exam: NORMAL INSPECTION - Eye Exam Eye Exam: absent: Scleral icterus - ENT Exam ENT Exam: Mucous Membranes Moist - Respiratory Exam Respiratory Exam: absent: Rales, Rhonchi, Wheezes, Respiratory Distress - Cardiovascular Exam Cardiovascular Exam: REGULAR RHYTHM, +S1, +S2 - GI/Abdominal Exam GI & Abdominal Exam: Soft. absent: Tenderness - Rectal Exam Rectal Exam: Deferred - Neurological Exam Neurological exam: Alert, Oriented x3 - Psychiatric Exam Psychiatric exam: Normal Affect - Skin Skin Exam: Dry, Intact Discharge Plan - Discharge Medications Prescriptions: Potassium Chloride [Klor-Con 10] 10 meq PO DAILY #7 ter - Follow Up Plan Condition: GOOD Disposition: HOME/ ROUTINE Instructions: Adult Respiratory Distress Syndrome Additional Instructions: Pls follow up with own private MD, call for appointment. Bring lists of medications to your private MD. Keep HOB elevated when eating. Turn to sides when in bed. 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 Take more oral liquids. Referrals: FAMILY PROVIDER,NO [Primary Care Provider] -
== END 2018-07-03 11:45 | disposition home health service (06) | DRG 56 ==
LOC: H.TCU 22:44
PROVIDERS: ADMIT Internal Medicine; ATTEND Internal Medicine
PROC: 3E03329 Introduction of Other Anti-infective into Peripheral Vein, Percutaneous Approach (ICD-10-PCS; principal; 2018-06-21)
PROC: F07M6FZ Therapeutic Exercise Treatment of Musculoskeletal System - Whole Body using Assistive, Adaptive, Supportive or Protective Equipment (ICD-10-PCS; 2018-06-23)
PROC: F08Z4FZ Home Management Treatment using Assistive, Adaptive, Supportive or Protective Equipment (ICD-10-PCS; 2018-06-23)
PROC: F07Z9FZ Gait Training/Functional Ambulation Treatment using Assistive, Adaptive, Supportive or Protective Equipment (ICD-10-PCS; 2018-06-23)
DX: I69.351 Hemiplegia and hemiparesis following cerebral infarction affecting right dominant side (principal); J15.0 Pneumonia due to Klebsiella pneumoniae; J69.0 Pneumonitis due to inhalation of food and vomit; J44.0 Chronic obstructive pulmonary disease with (acute) lower respiratory infection; J44.1 Chronic obstructive pulmonary disease with (acute) exacerbation; I69.320 Aphasia following cerebral infarction; I69.391 Dysphagia following cerebral infarction; K22.8 Other specified diseases of esophagus; T38.0X5A Adverse effect of glucocorticoids and synthetic analogues, initial encounter; Z79.4 Long term (current) use of insulin; Z87.01 Personal history of pneumonia (recurrent); Z87.891 Personal history of nicotine dependence; R32 Unspecified urinary incontinence; R26.81 Unsteadiness on feet; E11.65 Type 2 diabetes mellitus with hyperglycemia; I10 Essential (primary) hypertension